=== PATIENT | female | born 1975 | race Caucasian/White ===

== ENCOUNTER 2016-10-01 13:24 | Inpatient (IN) | payer SELFPAY ==
[~2016-10-01] VITALS: Ht 157.5 cm; Wt 47.5 kg
[~2016-10-01 13:24] MED LIST: ALBU8.5H5 INH; FAMO-79 PO; GABA100C8 PO; HYDR-3138 PO; HYDR-3240 PO; INSU100C SQ-INSULIN; INSU100I18 SQ-INSULIN; INSU100I28 SQ-INSULIN; INSU100V5 SQ-INSULIN; INSU100V8 SQ; LORA-445 PO; LORA-446 PO; MAGN400T26 PO; METR500T PO; MORP30TA81 PO; NPH,100V SQ; NPH,100V4 SQ; PREG25CA PO; PREG50CA PO; TRAM50TA2 PO; TRESIVA
[2016-10-01] MEDS ORDERED: SODIUM CHLORIDE FLUSH 10ML SYR IVF ONE ×2 (14:00)
[2016-10-01] MEDS ORDERED: SODIUM CHLORIDE 0.9% 1,000ML IVBOLUS ONE ×2 (14:00)
[2016-10-01] MEDS ORDERED: ESCI5TAB PO (14:14)
[2016-10-01 14:20] LABS: PH, VENOUS 6.978 pH (7.320-7.420)
[2016-10-01] MEDS ORDERED: REGULAR INSULIN 62.5 UNITS in SODIUM CHLORIDE 0.9% 249.375 ML IV PRN ×3 (14:20→19:00)
[2016-10-01 14:27] LABS: ASPARTATE AMINO TRANSFERASE 18 U/L (15-37); BLOOD UREA NITROGEN 19 mg/dL (7-18)
[2016-10-01 14:48] LABS: DIFF TOTAL CELLS COUNTED 100 CELL DIFF
[2016-10-01 14:58] LABS: VERIFY COUNTS? YES
[2016-10-01] MEDS ORDERED: SODIUM CHLORIDE FLUSH 10ML SYR IVF PRN (15:00)
[2016-10-01] MEDS ORDERED: ONDANSETRON 2MG/ML, 2ML ONE (17:33)
[2016-10-01] MEDS ORDERED: LABETALOL 5MG/ML, 20ML IV PRN (18:30)
[2016-10-01 19:15] LABS: DAU SCREEN DISCLAIMER
[2016-10-01 19:22] LABS: PATH.CAST-FLAG NOT PRESENT; SPERM-FLAG NOT PRESENT; SRC-FLAG NOT PRESENT; XTAL-FLAG NOT PRESENT; YLC-FLAG NOT PRESENT
[2016-10-01] MEDS: SODIUM CHLORIDE 0.9% 1,000 ML IV SCH (19:24)
[2016-10-01] MEDS: ENOXAPARIN 40 MG/0.4 ML SQ SCH (19:37)
[2016-10-01 19:39] LABS: BLOOD UREA NITROGEN 15 mg/dL (7-18)
[2016-10-01] MEDS ORDERED: ONDANSETRON 2MG/ML, 2ML IVPush PRN (20:00)
[2016-10-01] MEDS: FAMOTIDINE 20 MG/2 ML IV SCH (21:02)
[2016-10-01] MEDS: LORazepam 2 MG/ML, 1ML IVPush PRN (21:14)
[2016-10-01] MEDS: D5%-0.45% NACL 1,000 ML IV SCH (22:26)
[2016-10-01] MEDS: ONDANSETRON 2MG/ML, 2ML IVPush PRN (22:27)
[2016-10-01 23:25] LABS: BLOOD UREA NITROGEN 12 mg/dL (7-18)
[2016-10-02] MEDS ORDERED: ALBUTEROL SULFATE 2.5 MG/3 ML ONE (01:18)
[2016-10-02] MEDS: ALBUTEROL SULFATE 2.5 MG/3 ML NPPB PRN ×2 (01:24→23:07)
[2016-10-02] MEDS: SODIUM CHLORIDE 0.9% 1,000 ML IV SCH ×3 (01:25→14:22)
[2016-10-02] MEDS ORDERED: LORazepam 2 MG/ML, 1ML IVPush ONE (01:30)
[2016-10-02] MEDS: ONDANSETRON 2MG/ML, 2ML IVPush PRN ×2 (03:02→07:16)
[2016-10-02 03:07] LABS: BLOOD UREA NITROGEN 10 mg/dL (7-18)
[2016-10-02] MEDS: LORazepam 2 MG/ML, 1ML IVPush PRN ×2 (04:04→18:48)
[2016-10-02] MEDS: D5%-0.45% NACL 1,000 ML IV SCH ×2 (05:21→12:46)
[2016-10-02 07:26] LABS: BLOOD UREA NITROGEN 8 mg/dL (7-18)
[2016-10-02] MEDS: FAMOTIDINE 20 MG/2 ML IV SCH ×2 (08:24→21:32)
[2016-10-02] MEDS ORDERED: PROCHLORPERAZINE 10MG TABLET PO PRN (09:30)
[2016-10-02 11:08] LABS: BLOOD UREA NITROGEN 7 mg/dL (7-18)
[2016-10-02] MEDS ORDERED: SODIUM PHOSPHATE 20 MMOL in SODIUM CHLORIDE 0.9% 500 ML IV ONE (11:30)
[2016-10-02] MEDS ORDERED: MAGNESIUM SULFATE PMX 2GM/50ML 50 ML IV ONE (11:30)
[2016-10-02] MEDS ORDERED: POTASSIUM CHLORIDE 20 MEQ TAB.ER.PRT PO ONE (11:30)
[2016-10-02 15:30] LABS: BLOOD UREA NITROGEN 6 mg/dL (7-18)
[2016-10-02] MEDS ORDERED: LIDOCAINE 1%, 10ML INFIL ONE (15:30)
[2016-10-02] MEDS: ENOXAPARIN 40 MG/0.4 ML SQ SCH (18:30)
[2016-10-02 19:13] LABS: BLOOD UREA NITROGEN 3 mg/dL (7-18)
[2016-10-02 22:58] LABS: BLOOD UREA NITROGEN 3 mg/dL (7-18)
[2016-10-03] MEDS: LORazepam 2 MG/ML, 1ML IVPush PRN ×4 (00:50→20:21)
[2016-10-03 05:10] LABS: BLOOD UREA NITROGEN 3 mg/dL (7-18)
[2016-10-03] MEDS ORDERED: POTASSIUM CHLORIDE 20 MEQ TAB.ER.PRT PO ONE (07:30)
[2016-10-03] MEDS: NICOTINE 7 MG/24 HR PATCH.TD24 TD SCH (08:00)
[2016-10-03] MEDS ORDERED: INSULIN ASPART 100 UNITS/ML, PEN ONE (08:06)
[2016-10-03] MEDS: INSULIN DETEMIR 100 UNITS/ML, PEN SQ-INSULIN SCH ×2 (08:07→20:20)
[2016-10-03] MEDS: INSULIN ASPART 100 UNITS/ML, PEN SQ-INSULIN SCH ×4 (08:10→20:21)
[2016-10-03] MEDS: SODIUM CHLORIDE 0.9% 1,000 ML IV SCH ×3 (08:10→23:16)
[2016-10-03 10:39] VITALS: BP 138/86
[2016-10-03] MEDS: ENOXAPARIN 40 MG/0.4 ML SQ SCH (17:49)
[2016-10-03] MEDS ORDERED: OXYcodone/APAP 10/325MG TABLET PO PRN (18:00)
[2016-10-03 19:00] VITALS: BP 147/90
[2016-10-04 03:43] VITALS: BP 118/73
[2016-10-04] MEDS: LORazepam 2 MG/ML, 1ML IVPush PRN (03:54)
[2016-10-04 05:24] LABS: BLOOD UREA NITROGEN 3 mg/dL (7-18)
[2016-10-04] MEDS: INSULIN ASPART 100 UNITS/ML, PEN SQ-INSULIN SCH (07:00)
[2016-10-04 07:14] VITALS: BP 133/83
[2016-10-04] MEDS: INSULIN DETEMIR 100 UNITS/ML, PEN SQ-INSULIN SCH (07:30)
[2016-10-04] MEDS: SODIUM CHLORIDE 0.9% 1,000 ML IV SCH (07:41)
[2016-10-04] MEDS: NICOTINE 7 MG/24 HR PATCH.TD24 TD SCH (07:42)
== END 2016-10-04 11:05 | disposition home or self-care (01) | DRG 638 ==
LOC: ED 14:50 → EDIP 14:57 → CCU 15:53 → 3NE 10-03 10:35
PROVIDERS: ADMIT Hospitalist; ATTEND Hospitalist
DX: E10.10 Type 1 diabetes mellitus with ketoacidosis without coma (principal); E87.1 Hypo-osmolality and hyponatremia; E44.0 Moderate protein-calorie malnutrition; Z68.1 Body mass index [BMI] 19.9 or less, adult; F17.200 Nicotine dependence, unspecified, uncomplicated; F43.10 Post-traumatic stress disorder, unspecified; I10 Essential (primary) hypertension; E87.5 Hyperkalemia; E86.0 Dehydration; E10.40 Type 1 diabetes mellitus with diabetic neuropathy, unspecified; F41.9 Anxiety disorder, unspecified; Z91.19 Patient's noncompliance with other medical treatment and regimen; Z79.4 Long term (current) use of insulin
CPT/HCPCS: 36415; 71010; 80048; 80053; 80307; 81001; 82010; 82803; 82962; 83036; 83735; 84100; 85025; 87081; 94640; 96360; J1650; J1815; J2405; J7613; Q0164; J2060; J3475; J7030; J7040; J7050; S0028

== ENCOUNTER 2017-01-06 09:52 | Emergency (ER) | payer MEDICAID, OTHER ==
[~2017-01-06] VITALS: Ht 157.5 cm; Wt 47.2 kg
[~2017-01-06 09:52] MED LIST changes: +ESCI5TAB PO; +GABA-826 PO; -GABA100C8 PO
[2017-01-06 09:53] VITALS: BP 181/158
== END 2017-01-06 10:53 | disposition home or self-care (01) ==
LOC: ED 10:47
DX: Z76.0 Encounter for issue of repeat prescription (principal); G89.29 Other chronic pain; M79.606 Pain in leg, unspecified; I10 Essential (primary) hypertension; E11.65 Type 2 diabetes mellitus with hyperglycemia; E11.40 Type 2 diabetes mellitus with diabetic neuropathy, unspecified; F43.10 Post-traumatic stress disorder, unspecified; E86.0 Dehydration; Z90.49 Acquired absence of other specified parts of digestive tract
CPT/HCPCS: 99283

== ENCOUNTER 2017-02-08 20:28 | Emergency (ER) | payer MEDICAID ==
[~2017-02-08] VITALS: Ht 154.9 cm; Wt 48.0 kg
[~2017-02-08 20:28] MED LIST changes: -HYDR-3138 PO; +HYDR-3237 PO; -NPH,100V4 SQ; +NPH,100V5 SQ
[2017-02-08] MEDS ORDERED: DIPHENHYDRAMINE 50 MG/ML, 1ML ONE (20:53)
[2017-02-08] MEDS ORDERED: KETOROLAC 30 MG/1 ML ONE (20:53)
[2017-02-08] MEDS ORDERED: KETOROLAC 30 MG/1 ML IVPush ONE (21:00)
[2017-02-08] MEDS ORDERED: SODIUM CHLORIDE FLUSH 10ML SYR IVF ONE (21:00)
[2017-02-08] MEDS ORDERED: METOCLOPRAMIDE 5 MG/ML, 2ML ONE (21:00)
[2017-02-08] MEDS ORDERED: METOCLOPRAMIDE 5 MG/ML, 2ML IVPush ONE (21:00)
[2017-02-08] MEDS ORDERED: SODIUM CHLORIDE 0.9% 1,000ML IVBOLUS ONE (21:00)
[2017-02-08] MEDS ORDERED: DIPHENHYDRAMINE 50 MG/ML, 1ML IVPush ONE (21:00)
[2017-02-08] MEDS ORDERED: PLEASE ENTER HEIGHT AND WEIGHT MC SCH (21:00)
[2017-02-08 21:02] LABS: HEMATOCRIT 41.4 % (34.6-47.8); HEMOGLOBIN 13.5 g/dL (11.7-16.4)
[2017-02-08 21:13] LABS: BLOOD UREA NITROGEN 24 mg/dL (7-18)
[2017-02-08 21:23] VITALS: BP 122/61
[2017-02-08 21:28] LABS: IS PT STATUS REG ER OR PRE ER? YES
[2017-02-08 22:13] LABS: PATH.CAST-FLAG NOT PRESENT; SPERM-FLAG NOT PRESENT; SRC-FLAG NOT PRESENT; XTAL-FLAG NOT PRESENT; YLC-FLAG NOT PRESENT
== END 2017-02-08 23:23 | disposition home or self-care (01) ==
LOC: ED 22:30
DX: G44.219 Episodic tension-type headache, not intractable (principal); E86.0 Dehydration; E11.65 Type 2 diabetes mellitus with hyperglycemia; F43.10 Post-traumatic stress disorder, unspecified; I10 Essential (primary) hypertension; F32.9 Major depressive disorder, single episode, unspecified; E13.10 Other specified diabetes mellitus with ketoacidosis without coma; Z90.49 Acquired absence of other specified parts of digestive tract
CPT/HCPCS: 36415; 71010; 80048; 81001; 82040; 84484; 85025; 93005; 96361; 96374; 96375; 99285; J1200; J1885; J2765; J7030

== ENCOUNTER 2017-02-09 00:39 | Emergency (ER) | payer MEDICAID ==
[~2017-02-09] VITALS: Ht 157.5 cm; Wt 50.0 kg
[2017-02-09 00:55] VITALS: BP 102/72
[2017-02-09] MEDS ORDERED: LORazepam 1MG TABLET ONE (01:20)
[2017-02-09] MEDS ORDERED: LORazepam 1MG TABLET PO ONE (01:30)
== END 2017-02-09 01:37 | disposition home or self-care (01) ==
LOC: ED 01:31
DX: F41.1 Generalized anxiety disorder (principal); I10 Essential (primary) hypertension; E11.65 Type 2 diabetes mellitus with hyperglycemia; F17.200 Nicotine dependence, unspecified, uncomplicated; Z90.49 Acquired absence of other specified parts of digestive tract
CPT/HCPCS: 82962; 93005; 99284

== ENCOUNTER 2017-03-27 08:09 | Inpatient (IN) | payer MEDICAID ==
[~2017-03-27] VITALS: Ht 154.9 cm; Wt 60.9 kg
[2017-03-27] MEDS ORDERED: ONDANSETRON 2MG/ML, 2ML ONE (08:46)
[2017-03-27] MEDS ORDERED: LORazepam 2 MG/ML, 1ML ONE (08:47)
[2017-03-27] MEDS ORDERED: ONDANSETRON 2MG/ML, 2ML IVPush ONE (09:00)
[2017-03-27] MEDS ORDERED: LORazepam 2 MG/ML, 1ML IVPush ONE (09:00)
[2017-03-27] MEDS ORDERED: SODIUM CHLORIDE 0.9% 1,000ML IVBOLUS ONE ×2 (09:00→10:00)
[2017-03-27 09:02] LABS: HCG UR LOT HCG7030192
[2017-03-27 09:10] LABS: PATH.CAST-FLAG NOT PRESENT; SPERM-FLAG NOT PRESENT; SRC-FLAG NOT PRESENT; XTAL-FLAG NOT PRESENT; YLC-FLAG NOT PRESENT
[2017-03-27 09:15] LABS: HCG UR OBC PASS
[2017-03-27 09:28] LABS: HEMATOCRIT 39.9 % (34.6-47.8); WHITE BLOOD COUNT 9.5 x10^3/uL (3.4-10)
[2017-03-27] MEDS ORDERED: METOCLOPRAMIDE 5 MG/ML, 2ML ONE (09:29)
[2017-03-27] MEDS ORDERED: METOCLOPRAMIDE 5 MG/ML, 2ML IVPush ONE (09:30)
[2017-03-27 09:37] LABS: ASPARTATE AMINO TRANSFERASE 12 U/L (15-37); BLOOD UREA NITROGEN 10 mg/dL (7-18)
[2017-03-27 11:59] VITALS: BP 126/77
[2017-03-27] MEDS ORDERED: SODIUM CHLORIDE 0.9% 1,000 ML IV SCH (13:18)
[2017-03-27] MEDS ORDERED: BISACODYL 10 MG SUPP PR PRN (13:30)
[2017-03-27] MEDS ORDERED: ONDANSETRON 2MG/ML, 2ML IVPush PRN (13:30)
[2017-03-27] MEDS ORDERED: OXYcodone IR 5MG TABLET PO PRN (13:30)
[2017-03-27] MEDS ORDERED: INSULIN DETEMIR 100 UNITS/ML, PEN SQ-INSULIN SCH (13:30)
[2017-03-27] MEDS ORDERED: ENALAPRILAT 1.25 MG/ML, 2ML IVPush PRN (13:30)
[2017-03-27] MEDS ORDERED: hydrALAzine 20 MG/ML, 1ML IVPush PRN (13:30)
[2017-03-27] MEDS ORDERED: POLYETHYLENE GLYCOL 17 GM PACKET PO PRN (13:30)
[2017-03-27] MEDS: morphine SULFATE 10 MG/ML, 1ML IVPush PRN (13:56)
[2017-03-27] MEDS: HEPARIN 5,000 UNITS/ML, 1ML SQ SCH ×2 (14:00→21:22)
[2017-03-27] MEDS ORDERED: ALBUTEROL SULFATE 2.5 MG/3 ML NEB PRN (14:00)
[2017-03-27 15:15] VITALS: BP 167/83
[2017-03-27] MEDS ORDERED: ALBUTEROL SULFATE 2.5 MG/3 ML ONE (15:42)
[2017-03-27] MEDS: PREGABALIN 25 MG CAPSULE PO SCH ×2 (16:00→20:37)
[2017-03-27] MEDS ORDERED: ALBUTEROL SULFATE 2.5 MG/3 ML NPPB PRN (16:00)
[2017-03-27] MEDS ORDERED: INSULIN ASPART 100 UNITS/ML, PEN SQ-INSULIN SCH (16:00)
[2017-03-27] MEDS: LORazepam 2 MG/ML, 1ML IVPush PRN (16:05)
[2017-03-27 17:51] LABS: BLOOD UREA NITROGEN 9 mg/dL (7-18)
[2017-03-27] MEDS ORDERED: INSULIN ASPART 100 UNITS/ML, PEN SQ-INSULIN ONE (18:00)
[2017-03-27] MEDS ORDERED: D5%-0.45% NACL 1,000 ML IV PRN (18:27)
[2017-03-27] MEDS ORDERED: REGULAR INSULIN 62.5 UNITS in SODIUM CHLORIDE 0.9% 249.375 ML IV PRN ×2 (18:27→23:00)
[2017-03-27] MEDS ORDERED: PROMETHAZINE 25 MG/ML, 1ML IM PRN (18:30)
[2017-03-27] MEDS: HYDROcodone/APAP 5/325 TABLET PO SCH (20:37)
[2017-03-27] MEDS ORDERED: DEXTROSE 4 GM TAB.CHEW PO PRN (21:00)
[2017-03-27] MEDS ORDERED: DEXTROSE 50%, 50ML SYRINGE IVPush PRN (21:00)
[2017-03-27] MEDS ORDERED: GLUCAGON 1 MG IM PRN (21:00)
[2017-03-27] MEDS ORDERED: DEXTROSE 50%, 50ML SYRINGE ONE (21:16)
[2017-03-27] MEDS: LORazepam 0.5MG TABLET PO SCH (21:22)
[2017-03-27] MEDS: SODIUM CHLORIDE FLUSH 10ML SYR IVF SCH (21:23)
[2017-03-27] MEDS ORDERED: DEXTROSE 50%, 50ML SYRINGE IVPush ONE (21:30)
[2017-03-27 21:45] LABS: BLOOD UREA NITROGEN 7 mg/dL (7-18)
[2017-03-27] MEDS ORDERED: ENOXAPARIN 40 MG/0.4 ML SQ SCH (23:00)
[2017-03-27] MEDS ORDERED: MAGNESIUM SULFATE PMX 2GM/50ML 50 ML IV ONE (23:00)
[2017-03-27] MEDS ORDERED: NICOTINE 21 MG/24 HR PATCH.TD24 TD ONE (23:00)
[2017-03-28] MEDS: POTASSIUM CHLORIDE 20 MEQ in D5%-0.45% NACL 1,000 ML IV PRN ×2 (00:21→08:19)
[2017-03-28] MEDS: ALBUTEROL SULFATE 2.5 MG/3 ML NPPB SCH ×2 (00:21→07:00)
[2017-03-28 01:29] LABS: BLOOD UREA NITROGEN 6 mg/dL (7-18)
[2017-03-28] MEDS: morphine SULFATE 10 MG/ML, 1ML IVPush PRN ×2 (02:34→09:02)
[2017-03-28] MEDS: LORazepam 2 MG/ML, 1ML IVPush PRN (03:21)
[2017-03-28 04:16] VITALS: BP 104/64
[2017-03-28 04:24] LABS: HEMOGLOBIN 10.7 g/dL (11.7-16.4); WHITE BLOOD COUNT 11.4 x10^3/uL (3.4-10)
[2017-03-28 04:34] LABS: BLOOD UREA NITROGEN 5 mg/dL (7-18)
[2017-03-28 04:35] LABS: ASPARTATE AMINO TRANSFERASE 12 U/L (15-37)
[2017-03-28] MEDS ORDERED: POTASSIUM PHOSPHATE 44 MEQ in SODIUM CHLORIDE 0.9% 500 ML IV ONE ×2 (05:00→08:30)
[2017-03-28] MEDS: PREGABALIN 25 MG CAPSULE PO SCH ×3 (08:22→20:54)
[2017-03-28] MEDS ORDERED: LORazepam 1MG TABLET ONE (08:25)
[2017-03-28] MEDS: HYDROcodone/APAP 5/325 TABLET PO SCH (09:00)
[2017-03-28] MEDS ORDERED: SENNA/DOCUSATE TABLET PO SCH (09:00)
[2017-03-28] MEDS: LORazepam 0.5MG TABLET PO SCH (09:01)
[2017-03-28] MEDS: GUAIFENESIN 200 MG TABLET PO SCH ×4 (09:01→20:54)
[2017-03-28] MEDS: SODIUM CHLORIDE FLUSH 10ML SYR IVF SCH ×2 (09:12→20:54)
[2017-03-28] MEDS ORDERED: OXYcodone 5 MG/5 ML ORAL.SOL UDC PO PRN ×2 (09:30→13:30)
[2017-03-28] MEDS ORDERED: DEXTROSE 5% 1,000 ML IV SCH (09:30)
[2017-03-28 10:19] LABS: BLOOD UREA NITROGEN 3 mg/dL (7-18)
[2017-03-28] MEDS: INSULIN ASPART 100 UNITS/ML, PEN SQ-INSULIN SCH ×4 (12:30→22:27)
[2017-03-28] MEDS: INSULIN DETEMIR 100 UNITS/ML, PEN SQ-INSULIN SCH (12:51)
[2017-03-28] MEDS ORDERED: SODIUM CHLORIDE 0.9% 1,000 ML IV SCH (13:18)
[2017-03-28] MEDS ORDERED: morphine SULFATE 10 MG/ML, 1ML IVPush PRN (13:30)
[2017-03-28] MEDS: OXYcodone 5 MG/5 ML ORAL.SOL UDC PO PRN ×2 (16:59→21:31)
[2017-03-28 18:27] VITALS: BP 147/77
[2017-03-28] MEDS ORDERED: REGULAR INSULIN 62.5 UNITS in SODIUM CHLORIDE 0.9% 249.375 ML IV PRN (18:27)
[2017-03-28 18:31] VITALS: BP 112/73
[2017-03-28] MEDS: LORazepam 0.5MG TABLET PO PRN (19:24)
[2017-03-28] MEDS: ENOXAPARIN 40 MG/0.4 ML SQ SCH (20:55)
[2017-03-28] MEDS ORDERED: SODIUM CHLORIDE 0.9% 1,000ML IVBOLUS ONE (22:30)
[2017-03-29 00:09] VITALS: BP 112/74
[2017-03-29] MEDS: OXYcodone 5 MG/5 ML ORAL.SOL UDC PO PRN ×2 (03:41→09:57)
[2017-03-29 05:49] LABS: HEMOGLOBIN 11.1 g/dL (11.7-16.4)
[2017-03-29 06:02] LABS: WHITE BLOOD COUNT 8.6 x10^3/uL (3.4-10)
[2017-03-29] MEDS: GUAIFENESIN 200 MG TABLET PO SCH ×3 (06:10→16:00)
[2017-03-29 06:12] LABS: ASPARTATE AMINO TRANSFERASE 22 U/L (15-37); BLOOD UREA NITROGEN 5 mg/dL (7-18)
[2017-03-29 08:00] VITALS: BP 122/76
[2017-03-29] MEDS: PREGABALIN 25 MG CAPSULE PO SCH ×3 (08:28→22:06)
[2017-03-29] MEDS: SENNA/DOCUSATE TABLET PO SCH (08:28)
[2017-03-29] MEDS: ACETAMINOPHEN 325 MG TABLET PO PRN ×2 (08:28→22:07)
[2017-03-29] MEDS: SODIUM CHLORIDE FLUSH 10ML SYR IVF SCH ×2 (08:29→22:06)
[2017-03-29] MEDS: INSULIN ASPART 100 UNITS/ML, PEN SQ-INSULIN SCH ×4 (08:50→22:08)
[2017-03-29] MEDS: INSULIN DETEMIR 100 UNITS/ML, PEN SQ-INSULIN SCH (08:51)
[2017-03-29] MEDS ORDERED: INSULIN DETEMIR 100 UNITS/ML, PEN SQ-INSULIN SCH ×2 (09:30→21:00)
[2017-03-29] MEDS: LORazepam 0.5MG TABLET PO PRN ×2 (10:24→22:07)
[2017-03-29] MEDS ORDERED: NICOTINE 21 MG/24 HR PATCH.TD24 TD SCH (12:00)
[2017-03-29 14:00] VITALS: BP 124/79
[2017-03-29 18:26] LABS: DAU SCREEN DISCLAIMER
[2017-03-29 18:30] VITALS: BP 134/86
[2017-03-29] MEDS: ENOXAPARIN 40 MG/0.4 ML SQ SCH (21:00)
[2017-03-29] MEDS: GUAIFENESIN 100 MG/5 ML, 10ML UDC PO SCH (22:06)
[2017-03-30 01:00] VITALS: BP 155/93
[2017-03-30 06:30] VITALS: BP 135/82
[2017-03-30] MEDS: INSULIN ASPART 100 UNITS/ML, PEN SQ-INSULIN SCH ×2 (07:00→11:00)
[2017-03-30] MEDS: SENNA/DOCUSATE TABLET PO SCH (08:12)
[2017-03-30] MEDS: SODIUM CHLORIDE FLUSH 10ML SYR IVF SCH (08:12)
[2017-03-30] MEDS: GUAIFENESIN 100 MG/5 ML, 10ML UDC PO SCH ×2 (08:12→11:07)
[2017-03-30] MEDS: PREGABALIN 25 MG CAPSULE PO SCH (08:12)
[2017-03-30] MEDS: LORazepam 0.5MG TABLET PO PRN (08:31)
[2017-03-30] MEDS ORDERED: INSULIN DETEMIR 100 UNITS/ML, PEN SQ-INSULIN SCH (09:00)
== END 2017-03-30 11:13 | disposition home or self-care (01) | DRG 638 ==
LOC: ED 09:09 → EDIP 10:43 → 3NW 11:25 → CCU 19:15 → 3NE 03-28 14:56
PROVIDERS: ADMIT Hospitalist; ATTEND Family Medicine
DX: E10.10 Type 1 diabetes mellitus with ketoacidosis without coma (principal); E87.1 Hypo-osmolality and hyponatremia; E10.649 Type 1 diabetes mellitus with hypoglycemia without coma; E10.40 Type 1 diabetes mellitus with diabetic neuropathy, unspecified; D75.89 Other specified diseases of blood and blood-forming organs; E83.42 Hypomagnesemia; E86.0 Dehydration; F17.210 Nicotine dependence, cigarettes, uncomplicated; F41.1 Generalized anxiety disorder; F32.9 Major depressive disorder, single episode, unspecified; F43.10 Post-traumatic stress disorder, unspecified; I10 Essential (primary) hypertension; J45.909 Unspecified asthma, uncomplicated; Z79.4 Long term (current) use of insulin; Z91.14 Patient's other noncompliance with medication regimen; Z90.89 Acquired absence of other organs; Z90.49 Acquired absence of other specified parts of digestive tract
CPT/HCPCS: 36415; 71010; 80048; 80053; 80061; 80307; 81001; 81025; 82010; 82800; 82947; 82962; 83036; 83735; 84100; 84439; 84443; 85025; 87081; 94640; 96361; 96374; 96375; J1644; J1815; J2405; J3480; J7070; G0479; J2060; J2270; J2765; J3475; J7030; J7040; J7050

== ENCOUNTER 2017-05-02 00:36 | Inpatient (IN) | payer MEDICAID ==
[~2017-05-02] VITALS: Ht 157.5 cm; Wt 48.1 kg
[2017-05-02] MEDS ORDERED: SODIUM CHLORIDE 0.9% 1,000ML IVBOLUS ONE ×2 (01:00→02:00)
[2017-05-02 01:51] LABS: PH, VENOUS 7.192 pH (7.320-7.420)
[2017-05-02] MEDS ORDERED: REGULAR INSULIN 62.5 UNITS in SODIUM CHLORIDE 0.9% 249.375 ML IV PRN ×3 (01:53→07:00)
[2017-05-02 01:54] LABS: HEMATOCRIT 43.7 % (34.6-47.8); HEMOGLOBIN 13.6 g/dL (11.7-16.4); WHITE BLOOD COUNT 11.6 x10^3/uL (3.4-10)
[2017-05-02] MEDS ORDERED: morphine SULFATE 10 MG/ML, 1ML IVPush ONE (02:00)
[2017-05-02] MEDS ORDERED: ONDANSETRON 2MG/ML, 2ML IVPush ONE (02:00)
[2017-05-02] MEDS ORDERED: morphine SULFATE 10 MG/ML, 1ML ONE (02:02)
[2017-05-02] MEDS ORDERED: ONDANSETRON 2MG/ML, 2ML ONE (02:02)
[2017-05-02 02:07] LABS: BLOOD UREA NITROGEN 25 mg/dL (7-18)
[2017-05-02 02:11] LABS: ASPARTATE AMINO TRANSFERASE 14 U/L (15-37)
[2017-05-02 03:11] LABS: DAU SCREEN DISCLAIMER
[2017-05-02] MEDS ORDERED: SODIUM CHLORIDE 0.9% 1,000 ML IV SCH (04:44)
[2017-05-02] MEDS ORDERED: ALBUTEROL HFA 90 MCG/SPRAY INH PRN (05:00)
[2017-05-02] MEDS ORDERED: ACETAMINOPHEN 325 MG TABLET PO PRN (05:00)
[2017-05-02 05:46] LABS: BLOOD UREA NITROGEN 21 mg/dL (7-18)
[2017-05-02] MEDS: ENOXAPARIN 40 MG/0.4 ML SQ SCH (05:51)
[2017-05-02] MEDS: NICOTINE 14MG/24 HR PATCH.TD24 TD SCH (05:52)
[2017-05-02] MEDS ORDERED: ALBUTEROL SULFATE 2.5 MG/3 ML NPPB PRN (06:00)
[2017-05-02] MEDS: ONDANSETRON 2MG/ML, 2ML IVPush PRN ×2 (06:13→08:56)
[2017-05-02] MEDS: D5%-0.45% NACL 1,000 ML IV PRN ×2 (07:53→15:43)
[2017-05-02] MEDS ORDERED: HYDROcodone/APAP 5/325 TABLET PO SCH (09:00)
[2017-05-02] MEDS ORDERED: LORazepam 0.5MG TABLET PO SCH (09:00)
[2017-05-02] MEDS ORDERED: ESCITALOPRAM OXALATE 5 MG HOMEMEDPO SCH (09:00)
[2017-05-02] MEDS ORDERED: HYDROcodone/APAP 5/325 TABLET PO PRN (09:00)
[2017-05-02 09:33] LABS: BLOOD UREA NITROGEN 18 mg/dL (7-18)
[2017-05-02] MEDS: PREGABALIN 25 MG CAPSULE PO SCH ×3 (09:52→21:13)
[2017-05-02] MEDS ORDERED: CITALOPRAM 10 MG TABLET PO SCH ×2 (10:03→10:04)
[2017-05-02 13:55] LABS: BLOOD UREA NITROGEN 14 mg/dL (7-18)
[2017-05-02] MEDS ORDERED: LORazepam 1MG TABLET ONE (14:24)
[2017-05-02] MEDS: LORazepam 0.5MG TABLET PO PRN (14:28)
[2017-05-02] MEDS ORDERED: LORazepam 0.5MG TABLET PO PRN (18:00)
[2017-05-02 18:15] LABS: BLOOD UREA NITROGEN 8 mg/dL (7-18)
[2017-05-02] MEDS: INSULIN DETEMIR 100 UNITS/ML, PEN SQ-INSULIN SCH (19:46)
[2017-05-02 23:40] LABS: BLOOD UREA NITROGEN 7 mg/dL (7-18)
[2017-05-03] MEDS: D5%-0.45% NACL 1,000 ML IV PRN
[2017-05-03] MEDS: INSULIN ASPART 100 UNITS/ML, PEN SQ-INSULIN SCH ×2 (02:00→06:00)
[2017-05-03] MEDS ORDERED: LORazepam 1MG TABLET ONE (03:32)
[2017-05-03] MEDS: LORazepam 0.5MG TABLET PO PRN (03:35)
[2017-05-03 04:11] VITALS: BP 105/59
[2017-05-03] MEDS: NICOTINE 14MG/24 HR PATCH.TD24 TD SCH (04:57)
[2017-05-03] MEDS: ENOXAPARIN 40 MG/0.4 ML SQ SCH (04:57)
[2017-05-03 05:24] LABS: BLOOD UREA NITROGEN 5 mg/dL (7-18)
[2017-05-03 05:25] LABS: HEMATOCRIT 32.4 % (34.6-47.8); HEMOGLOBIN 10.7 g/dL (11.7-16.4); WHITE BLOOD COUNT 10.8 x10^3/uL (3.4-10)
[2017-05-03] MEDS: INSULIN DETEMIR 100 UNITS/ML, PEN SQ-INSULIN SCH (06:29)
[2017-05-03 08:16] VITALS: BP 125/76
[2017-05-03] MEDS: PREGABALIN 25 MG CAPSULE PO SCH (09:39)
[2017-05-03] MEDS ORDERED: FLU VACC QS2017-18 (36MOS+) UP/PF 0.5 ML IM-VACC ONE (10:00)
== END 2017-05-03 10:45 | disposition home or self-care (01) | DRG 639 ==
LOC: ED 01:01 → EDIP 02:21 → CCU 05:13 → DCLOUNGE 05-03 10:20
PROVIDERS: ADMIT Hospitalist; ATTEND Hospitalist
DX: E10.10 Type 1 diabetes mellitus with ketoacidosis without coma (principal); E10.40 Type 1 diabetes mellitus with diabetic neuropathy, unspecified; D72.828 Other elevated white blood cell count; E86.0 Dehydration; F17.210 Nicotine dependence, cigarettes, uncomplicated; F41.9 Anxiety disorder, unspecified; F43.10 Post-traumatic stress disorder, unspecified; G89.29 Other chronic pain; I10 Essential (primary) hypertension; J45.909 Unspecified asthma, uncomplicated; Z79.4 Long term (current) use of insulin; Z90.49 Acquired absence of other specified parts of digestive tract
CPT/HCPCS: 36415; 71010; 80048; 80053; 80307; 81003; 82010; 82803; 82962; 83690; 83735; 83930; 84100; 85025; 87040; 87081; 90686; 93005; 96372; 96374; 96375; J1650; J1815; J2405; G0479; J2270; J7030; J7050

== ENCOUNTER 2017-05-20 00:12 | Inpatient (IN) | payer MEDICAID ==
[~2017-05-20] VITALS: Ht 154.9 cm; Wt 50.7 kg
[2017-05-20] MEDS ORDERED: SODIUM CHLORIDE FLUSH 10ML SYR IVF ONE (00:30)
[2017-05-20] MEDS ORDERED: SODIUM CHLORIDE 0.9% 1,000ML IVBOLUS ONE ×3 (00:30→01:30)
[2017-05-20 01:10] LABS: PH, VENOUS 7.089 pH (7.320-7.420)
[2017-05-20] MEDS ORDERED: REGULAR INSULIN 62.5 UNITS in SODIUM CHLORIDE 0.9% 249.375 ML IV PRN ×2 (01:14→03:25)
[2017-05-20 01:18] LABS: ASPARTATE AMINO TRANSFERASE 25 U/L (15-37); BLOOD UREA NITROGEN 16 mg/dL (7-18)
[2017-05-20 01:28] LABS: HEMATOCRIT 47.5 % (34.6-47.8); HEMOGLOBIN 13.6 g/dL (11.7-16.4); WHITE BLOOD COUNT 11.9 x10^3/uL (3.4-10)
[2017-05-20] MEDS ORDERED: ONDANSETRON 2MG/ML, 2ML ONE (02:50)
[2017-05-20] MEDS ORDERED: D5%-0.45% NACL 1,000 ML IV PRN (03:25)
[2017-05-20] MEDS ORDERED: SODIUM CHLORIDE 0.9% 1,000 ML IV ONE (03:25)
[2017-05-20] MEDS ORDERED: LORazepam 2 MG/ML, 1ML IVPush PRN (03:30)
[2017-05-20] MEDS ORDERED: SODIUM BICARB 8.4%, 50ML SYRINGE IVPB PRN (03:30)
[2017-05-20] MEDS ORDERED: DOCUSATE 100 MG CAPSULE PO PRN (03:30)
[2017-05-20] MEDS ORDERED: SODIUM BICARB 8.4%, 50ML SYRINGE ONE (04:00)
[2017-05-20] MEDS: ONDANSETRON 2MG/ML, 2ML IVPush PRN ×2 (04:02→15:53)
[2017-05-20] MEDS ORDERED: SODIUM BICARB 8.4%, 50ML SYRINGE IVPush ONE (04:30)
[2017-05-20 09:40] LABS: BLOOD UREA NITROGEN 7 mg/dL (7-18)
[2017-05-20] MEDS ORDERED: INSULIN DETEMIR 100 UNITS/ML, PEN SQ-INSULIN SCH (12:30)
[2017-05-20 12:57] VITALS: BP 114/72
[2017-05-20] MEDS: SODIUM CHLORIDE FLUSH 10ML SYR IVF SCH ×2 (13:09→22:13)
[2017-05-20] MEDS: NS + 20MEQ KCL 1,000 ML IV SCH ×2 (13:09→22:12)
[2017-05-20] MEDS: INSULIN ASPART 100 UNITS/ML, PEN SQ-INSULIN SCH ×2 (17:09→22:13)
[2017-05-20] MEDS: PROMETHAZINE 25 MG/ML, 1ML IM PRN ×3 (17:18→21:56)
[2017-05-20] MEDS ORDERED: INSULIN ASPART 100 UNITS/ML, PEN SQ-INSULIN SCH (17:30)
[2017-05-20 19:25] VITALS: BP 118/78
[2017-05-21] MEDS ORDERED: INSULIN DETEMIR 100 UNITS/ML, PEN SQ-INSULIN SCH (00:30)
[2017-05-21] MEDS: ONDANSETRON 2MG/ML, 2ML IVPush PRN ×3 (02:36→16:34)
[2017-05-21 03:21] VITALS: BP 110/72
[2017-05-21] MEDS ORDERED: SODIUM CHLORIDE 0.9% 1,000 ML IV SCH (03:25)
[2017-05-21] MEDS: PROMETHAZINE 25 MG/ML, 1ML IM PRN ×3 (05:02→12:28)
[2017-05-21 05:33] LABS: HEMATOCRIT 31.3 % (34.6-47.8); HEMOGLOBIN 9.9 g/dL (11.7-16.4); WHITE BLOOD COUNT 14.4 x10^3/uL (3.4-10)
[2017-05-21] MEDS: NS + 20MEQ KCL 1,000 ML IV SCH (05:37)
[2017-05-21 05:44] LABS: BLOOD UREA NITROGEN 5 mg/dL (7-18)
[2017-05-21] MEDS: INSULIN ASPART 100 UNITS/ML, PEN SQ-INSULIN SCH ×4 (07:48→21:54)
[2017-05-21] MEDS: SODIUM CHLORIDE FLUSH 10ML SYR IVF SCH ×2 (07:48→21:45)
[2017-05-21 08:00] VITALS: BP 145/74
[2017-05-21] MEDS: LORazepam 0.5MG TABLET PO SCH ×2 (12:00→22:00)
[2017-05-21] MEDS ORDERED: ALBUTEROL SULFATE 2.5 MG/3 ML HHN PRN (12:00)
[2017-05-21] MEDS ORDERED: LORazepam 1MG TABLET ONE (12:21)
[2017-05-21] MEDS: INSULIN DETEMIR 100 UNITS/ML, PEN SQ-INSULIN SCH (12:29)
[2017-05-21] MEDS: HEPARIN 5,000 UNITS/ML, 1ML SQ SCH ×2 (12:30→21:56)
[2017-05-21] MEDS: PREGABALIN 25 MG CAPSULE PO SCH ×3 (13:07→22:00)
[2017-05-21] MEDS: SODIUM CHLORIDE 0.9% 1,000 ML IV SCH ×2 (13:30→21:45)
[2017-05-21] MEDS: METOCLOPRAMIDE 5 MG/ML, 2ML IVPush PRN ×2 (13:36→21:45)
[2017-05-21 14:24] VITALS: BP 155/78
[2017-05-21 19:28] VITALS: BP 147/72
[2017-05-22 03:37] VITALS: BP 139/67
[2017-05-22] MEDS: HEPARIN 5,000 UNITS/ML, 1ML SQ SCH ×3 (04:37→21:00)
[2017-05-22 04:57] LABS: HEMATOCRIT 33.6 % (34.6-47.8); HEMOGLOBIN 10.7 g/dL (11.7-16.4); WHITE BLOOD COUNT 10.7 x10^3/uL (3.4-10)
[2017-05-22 05:09] LABS: BLOOD UREA NITROGEN 3 mg/dL (7-18)
[2017-05-22] MEDS: SODIUM CHLORIDE 0.9% 1,000 ML IV SCH ×2 (05:46→12:30)
[2017-05-22 08:08] VITALS: BP 132/79
[2017-05-22] MEDS: INSULIN ASPART 100 UNITS/ML, PEN SQ-INSULIN SCH ×4 (08:33→21:00)
[2017-05-22] MEDS: PREGABALIN 25 MG CAPSULE PO SCH ×3 (08:34→21:00)
[2017-05-22] MEDS: SODIUM CHLORIDE FLUSH 10ML SYR IVF SCH ×2 (08:34→21:01)
[2017-05-22] MEDS: LORazepam 0.5MG TABLET PO SCH ×2 (08:34→21:01)
[2017-05-22] MEDS ORDERED: MAGNESIUM SULFATE PMX 2GM/50ML 50 ML IV ONE (10:30)
[2017-05-22] MEDS: INSULIN DETEMIR 100 UNITS/ML, PEN SQ-INSULIN SCH ×3 (13:08→21:11)
[2017-05-22 15:34] VITALS: BP 120/75
[2017-05-22 19:24] VITALS: BP 126/78
[2017-05-23] MEDS ORDERED: DEXTROSE 50%, 50ML SYRINGE ONE (00:18)
[2017-05-23] MEDS: DEXTROSE 50%, 50ML SYRINGE IVPush PRN ×2 (00:26→05:35)
[2017-05-23] MEDS ORDERED: DEXTROSE 4 GM TAB.CHEW PO PRN (00:30)
[2017-05-23] MEDS ORDERED: GLUCAGON 1 MG IM PRN (00:30)
[2017-05-23 03:23] VITALS: BP 118/90
[2017-05-23] MEDS: HEPARIN 5,000 UNITS/ML, 1ML SQ SCH ×3 (05:00→20:18)
[2017-05-23 05:12] LABS: BLOOD UREA NITROGEN 8 mg/dL (7-18)
[2017-05-23 07:16] VITALS: BP 124/73
[2017-05-23] MEDS: SODIUM CHLORIDE FLUSH 10ML SYR IVF SCH ×2 (07:43→20:08)
[2017-05-23] MEDS: INSULIN ASPART 100 UNITS/ML, PEN SQ-INSULIN SCH ×4 (07:43→20:18)
[2017-05-23] MEDS: LORazepam 0.5MG TABLET PO SCH ×2 (07:44→20:16)
[2017-05-23] MEDS: PREGABALIN 25 MG CAPSULE PO SCH ×3 (07:44→20:16)
[2017-05-23] MEDS: NICOTINE 14MG/24 HR PATCH.TD24 TD SCH (12:00)
[2017-05-23 13:40] VITALS: BP 131/86
[2017-05-23] MEDS: ACETAMINOPHEN 325 MG TABLET PO PRN ×2 (15:10→19:58)
[2017-05-23] MEDS ORDERED: POTASSIUM CHLORIDE 20 MEQ TAB.ER.PRT PO ONE (19:00)
[2017-05-23 19:17] VITALS: BP 145/92
[2017-05-24 00:57] VITALS: BP 136/90
[2017-05-24] MEDS: ACETAMINOPHEN 325 MG TABLET PO PRN (01:37)
[2017-05-24] MEDS: HEPARIN 5,000 UNITS/ML, 1ML SQ SCH ×2 (04:18→11:34)
[2017-05-24] MEDS: PREGABALIN 25 MG CAPSULE PO SCH ×2 (07:47→16:49)
[2017-05-24] MEDS: SODIUM CHLORIDE FLUSH 10ML SYR IVF SCH (07:48)
[2017-05-24] MEDS: LORazepam 0.5MG TABLET PO SCH (07:48)
[2017-05-24 08:16] VITALS: BP 139/98
[2017-05-24] MEDS ORDERED: INSULIN DETEMIR 100 UNITS/ML, PEN SQ-INSULIN SCH (09:00)
[2017-05-24] MEDS: INSULIN ASPART 100 UNITS/ML, PEN SQ-INSULIN SCH ×3 (09:01→16:50)
[2017-05-24] MEDS ORDERED: INSU100I28 SQ-INSULIN (10:46)
[2017-05-24] MEDS ORDERED: METO5TAB57 PO (10:46)
[2017-05-24] MEDS ORDERED: INSU100I11 SQ (10:53)
[2017-05-24] MEDS: NICOTINE 14MG/24 HR PATCH.TD24 TD SCH (11:33)
[2017-05-24 13:38] VITALS: BP 121/83
== END 2017-05-24 17:45 | disposition home or self-care (01) | DRG 638 ==
LOC: ED 00:34 → EDIP 01:16 → ICU 04:48 → 3NW 12:50
PROVIDERS: ADMIT Surgery; ATTEND Surgery
PROC: 06HY33Z Insertion of Infusion Device into Lower Vein, Percutaneous Approach (ICD-10-PCS; principal; 2017-05-20)
DX: E10.10 Type 1 diabetes mellitus with ketoacidosis without coma (principal); E87.1 Hypo-osmolality and hyponatremia; N17.9 Acute kidney failure, unspecified; E10.40 Type 1 diabetes mellitus with diabetic neuropathy, unspecified; E87.5 Hyperkalemia; E86.0 Dehydration; F43.10 Post-traumatic stress disorder, unspecified; I10 Essential (primary) hypertension; J45.909 Unspecified asthma, uncomplicated; Z79.899 Other long term (current) drug therapy; Z87.891 Personal history of nicotine dependence; Z91.14 Patient's other noncompliance with medication regimen; Z91.19 Patient's noncompliance with other medical treatment and regimen
CPT/HCPCS: 36415; 80047; 80048; 80053; 81003; 82010; 82803; 82947; 82962; 83036; 83735; 85025; 87081; 93005; 96365; 96366; J1815; J2405; J2550; J3480; J2060; J2765; J3475; J7030; J7050

== ENCOUNTER 2017-08-26 16:32 | Emergency (ER) | payer MEDICAID ==
[~2017-08-26] VITALS: Ht 157.5 cm; Wt 55.0 kg
[~2017-08-26 16:32] MED LIST changes: +INSU100I11 SQ; +METO5TAB57 PO
[2017-08-26] MEDS ORDERED: GABA300C10 PO (16:49)
[2017-08-26] MEDS ORDERED: SODIUM CHLORIDE 0.9% 1,000ML IVBOLUS ONE (17:00)
[2017-08-26 17:10] LABS: BASOPHILS # (AUTO) 0.06 x10^3/uL (0-0.1); BASOPHILS % (AUTO) 0 % (0-1); EOSINOPHILS # (AUTO) 0.34 x10^3/uL (0-0.4); EOSINOPHILS % (AUTO) 3 % (1-7); LYMPHOCYTES # (AUTO) 3.66 x10^3/uL (1-3.4); LYMPHOCYTES % (AUTO) 27 % (22-44); MD NO; MEAN CORPUSCULAR HEMOGLOBIN 23.9 pg (27.0-34.8); MEAN CORPUSCULAR VOLUME 74.7 fL (80-100); MEAN PLATELET VOLUME 7.7 fL (7.4-10.4); MONOCYTES # (AUTO) 0.66 x10^3/uL (0.2-0.8); MONOCYTES % (AUTO) 5 % (2-9); NEUTROPHILS % (AUTO) 66 % (42-75); PLATELET COUNT 805 x10^3/uL (130-400); RED BLOOD COUNT 5.49 x10^6/uL (3.82-5.3); RED CELL DISTRIBUTION WIDTH 21.7 % (9.6-15.2)
[2017-08-26 17:12] LABS: PH, VENOUS 7.422 pH (7.320-7.420)
[2017-08-26 17:20] LABS: ACETONE, SERUM Negative (Negative)
[2017-08-26 17:24] LABS: ALBUMIN 3.4 g/dL (3.4-5.0); ANION GAP 14 mmol/L (5-15); CALCIUM 9.8 mg/dL (8.5-10.1); CHLORIDE 102 mmol/L (98-107); CREATININE 1.04 mg/dL (0.55-1.02)
[2017-08-26] MEDS ORDERED: KETOROLAC 30 MG/1 ML ONE (17:26)
[2017-08-26] MEDS ORDERED: KETOROLAC 30 MG/1 ML IVPush ONE (17:30)
[2017-08-26 17:33] VITALS: BP 121/85
== END 2017-08-26 19:17 | disposition home or self-care (01) ==
LOC: ED 19:11
DX: E11.65 Type 2 diabetes mellitus with hyperglycemia (principal); E86.0 Dehydration; E11.10 Type 2 diabetes mellitus with ketoacidosis without coma; I10 Essential (primary) hypertension; F43.10 Post-traumatic stress disorder, unspecified; Z90.49 Acquired absence of other specified parts of digestive tract
CPT/HCPCS: 36415; 71045; 80048; 82010; 82040; 82803; 85025; 96361; 96374; 99285; J1885; J7030

== ENCOUNTER 2017-09-23 20:11 | Inpatient (IN) | payer MEDICAID ==
[~2017-09-23] VITALS: Ht 154.9 cm; Wt 50.4 kg
[~2017-09-23 20:11] MED LIST changes: +GABA300C10 PO
[2017-09-23] MEDS ORDERED: PROMETHAZINE 25 MG/ML, 1ML ONE (20:38)
[2017-09-23] MEDS ORDERED: MORPHINE SULFATE 4 MG/ML, 1ML ONE ×3 (20:38→22:45)
[2017-09-23] MEDS ORDERED: SODIUM CHLORIDE 0.9% 1,000ML IVBOLUS ONE (21:00)
[2017-09-23] MEDS ORDERED: PROMETHAZINE 25 MG/ML, 1ML IM ONE (21:00)
[2017-09-23] MEDS ORDERED: REGULAR INSULIN 62.5 UNITS in SODIUM CHLORIDE 0.9% 249.375 ML IV PRN ×2 (21:19→22:58)
[2017-09-23 21:20] LABS: ALANINE AMINOTRANSFERASE 33 U/L (12-78); ALBUMIN 2.8 g/dL (3.4-5.0); ANION GAP 25 mmol/L (5-15); CALCIUM 7.4 mg/dL (8.5-10.1); CHLORIDE 98 mmol/L (98-107); CREATININE 0.99 mg/dL (0.55-1.02)
[2017-09-23 21:23] LABS: ALKALINE PHOSPHATASE 102 U/L (45-117); BILIRUBIN,TOTAL 0.5 mg/dL (0.2-1.0); TOTAL PROTEIN 6.4 g/dL (6.4-8.2)
[2017-09-23 21:32] LABS: MEAN CORPUSCULAR HEMOGLOBIN 23.9 pg (27.0-34.8); MEAN CORPUSCULAR HGB CONC 30.2 g/dL (32.4-35.8); MEAN CORPUSCULAR VOLUME 79.1 fL (80-100); MEAN PLATELET VOLUME 8.2 fL (7.4-10.4); PLATELET COUNT 634 x10^3/uL (130-400); RED BLOOD COUNT 4.52 x10^6/uL (3.82-5.3); RED CELL DISTRIBUTION WIDTH 20.7 % (9.6-15.2)
[2017-09-23 21:33] LABS: MD YES
[2017-09-23 21:34] LABS: BASOS#(MANUAL) 0.11 x10^3/uL (0-0.1); BASOS% (MANUAL) 1 % (0-1); EOS#(MANUAL) 0.34 x10^3/uL (0.0-0.4); EOS% (MANUAL) 3 % (1-7); LYMPHS% (MANUAL) 15 % (22-44); MONOS#(MANUAL) 0.34 x10^3/uL (0.3-2.7); MONOS% (MANUAL) 3 % (2-9); SEG#(MANUAL) 8.81 x10^3/uL (1.8-6.8); SEGS% (MANUAL) 78 % (42-75)
[2017-09-23 21:35] LABS: ANISOCYTOSIS 1+
[2017-09-23 21:36] LABS: ECHINOCYTES 1+; POLYCHROMASIA 1+
[2017-09-23 21:37] LABS: ACETONE, SERUM Large (80mg/dL) mg/dL (Negative)
[2017-09-23 21:39] LABS: <PLATELET ESTIMATE> INCREASED; <PLT MORPHOLOGY> NORMAL PLT MORPH
[2017-09-23] MEDS: MORPHINE SULFATE 4 MG/ML, 1ML IVPush PRN ×2 (21:45→22:48)
[2017-09-23] MEDS ORDERED: POTASSIUM CHLORIDE 40 MEQ in SODIUM CHLORIDE 0.9% 500 ML IV ONE (22:00)
[2017-09-23] MEDS ORDERED: SODIUM CHLORIDE 0.9% 1,000 ML IV SCH (22:58)
[2017-09-23] MEDS ORDERED: INSULIN REGULAR 100 UNITS/ML, 3ML VIAL IVPush ONE (23:00)
[2017-09-23] MEDS ORDERED: ONDANSETRON 2MG/ML, 2ML IVPush PRN (23:00)
[2017-09-23] MEDS: ENOXAPARIN 40 MG/0.4 ML SQ SCH (23:30)
[2017-09-24] MEDS ORDERED: LORazepam 0.5MG TABLET PO PRN
[2017-09-24] MEDS ORDERED: NICOTINE 14MG/24 HR PATCH.TD24 TD ONE (00:30)
[2017-09-24] MEDS: D5%-0.45% NACL 1,000 ML IV PRN ×2 (01:09→05:33)
[2017-09-24 01:31] LABS: % IRON SATURATION 8 % (20-55); ANION GAP 14 mmol/L (5-15); CALCIUM 7.3 mg/dL (8.5-10.1); CHLORIDE 113 mmol/L (98-107); CREATININE 0.78 mg/dL (0.55-1.02); IRON LEVEL 29 mcg/dL (50-170); TOTAL IRON BINDING CAPACITY 369 mcg/dL (250-450)
[2017-09-24 04:22] VITALS: BP 125/69
[2017-09-24 05:02] LABS: ANION GAP 6 mmol/L (5-15); CALCIUM 7.1 mg/dL (8.5-10.1); CHLORIDE 114 mmol/L (98-107); CREATININE 0.72 mg/dL (0.55-1.02)
[2017-09-24] MEDS: INSULIN GLARGINE 100 UNITS/ML, PEN SQ-INSULIN SCH ×2 (08:53→20:03)
[2017-09-24] MEDS: INSULIN LISPRO 100 UNITS/ML, PEN SQ-INSULIN SCH ×3 (11:26→20:03)
[2017-09-24] MEDS: KETOROLAC 30 MG/1 ML IVPush PRN ×2 (12:35→18:29)
[2017-09-24 14:03] VITALS: BP 120/75
[2017-09-24] MEDS: GABAPENTIN 300 MG CAPSULE PO SCH ×2 (16:00→20:02)
[2017-09-24 16:27] LABS: ANION GAP 9 mmol/L (5-15); CALCIUM 7.6 mg/dL (8.5-10.1); CHLORIDE 107 mmol/L (98-107); CREATININE 0.86 mg/dL (0.55-1.02)
[2017-09-24 19:40] VITALS: BP 141/96
[2017-09-24] MEDS ORDERED: NICOTINE 14MG/24 HR PATCH.TD24 TD SCH (21:30)
[2017-09-24] MEDS: ENOXAPARIN 40 MG/0.4 ML SQ SCH (22:41)
[2017-09-24] MEDS: ACETAMINOPHEN 325 MG TABLET PO PRN ×2 (22:45)
[2017-09-24] MEDS ORDERED: D5%-0.45% NACL 1,000 ML IV PRN (22:58)
[2017-09-25 02:31] VITALS: BP 117/75
[2017-09-25] MEDS: KETOROLAC 30 MG/1 ML IVPush PRN (05:00)
[2017-09-25 05:13] LABS: BASOPHILS # (AUTO) 0.06 x10^3/uL (0-0.1); BASOPHILS % (AUTO) 1 % (0-1); EOSINOPHILS # (AUTO) 0.55 x10^3/uL (0-0.4); EOSINOPHILS % (AUTO) 6 % (1-7); LYMPHOCYTES # (AUTO) 3.73 x10^3/uL (1-3.4); LYMPHOCYTES % (AUTO) 40 % (22-44); MD NO; MEAN CORPUSCULAR HEMOGLOBIN 24.6 pg (27.0-34.8); MEAN CORPUSCULAR HGB CONC 31.8 g/dL (32.4-35.8); MEAN CORPUSCULAR VOLUME 77.3 fL (80-100); MEAN PLATELET VOLUME 7.6 fL (7.4-10.4); MONOCYTES # (AUTO) 0.43 x10^3/uL (0.2-0.8); MONOCYTES % (AUTO) 5 % (2-9); NEUTROPHILS # (AUTO) 4.51 x10^3/uL (1.8-6.8); NEUTROPHILS % (AUTO) 49 % (42-75); PLATELET COUNT 572 x10^3/uL (130-400); RED BLOOD COUNT 4.27 x10^6/uL (3.82-5.3); RED CELL DISTRIBUTION WIDTH 20.9 % (9.6-15.2)
[2017-09-25 05:17] LABS: ALBUMIN 2.4 g/dL (3.4-5.0); CALCIUM 9.4 mg/dL (8.5-10.1); CHLORIDE 111 mmol/L (98-107)
[2017-09-25 05:23] LABS: ALANINE AMINOTRANSFERASE 30 U/L (12-78); ALKALINE PHOSPHATASE 83 U/L (45-117); ANION GAP 5 mmol/L (5-15); BILIRUBIN,TOTAL 0.4 mg/dL (0.2-1.0); CREATININE 0.68 mg/dL (0.55-1.02); TOTAL PROTEIN 5.5 g/dL (6.4-8.2)
[2017-09-25 07:15] VITALS: BP 119/73
[2017-09-25] MEDS: GABAPENTIN 300 MG CAPSULE PO SCH (08:42)
[2017-09-25] MEDS: INSULIN LISPRO 100 UNITS/ML, PEN SQ-INSULIN SCH (08:43)
[2017-09-25] MEDS: INSULIN GLARGINE 100 UNITS/ML, PEN SQ-INSULIN SCH (08:43)
== END 2017-09-25 10:46 | disposition home or self-care (01) | DRG 637 ==
LOC: ED 21:11 → SUATTDRO 22:50 → EDIP 22:58 → CCU 23:34 → 4EST 09-24 13:36
PROVIDERS: ADMIT Hospitalist; ATTEND Hospitalist
DX: E10.10 Type 1 diabetes mellitus with ketoacidosis without coma (principal); E43 Unspecified severe protein-calorie malnutrition; E10.40 Type 1 diabetes mellitus with diabetic neuropathy, unspecified; D72.829 Elevated white blood cell count, unspecified; D50.9 Iron deficiency anemia, unspecified; F17.200 Nicotine dependence, unspecified, uncomplicated; Z71.6 Tobacco abuse counseling; I10 Essential (primary) hypertension; F43.10 Post-traumatic stress disorder, unspecified; J45.909 Unspecified asthma, uncomplicated; Z59.0 Homelessness; Z79.4 Long term (current) use of insulin; Z83.3 Family history of diabetes mellitus; Z90.49 Acquired absence of other specified parts of digestive tract; F41.9 Anxiety disorder, unspecified; Z68.21 Body mass index [BMI] 21.0-21.9, adult
CPT/HCPCS: 36415; 80048; 80053; 82010; 82803; 82962; 83540; 83550; 83690; 83735; 84100; 85025; 87081; 96361; 96365; 96366; 96368; 96372; 96375; 96376; J1650; J1885; J2550; J3480; J1815; J7030; J7040

== ENCOUNTER 2017-10-14 11:56 | Inpatient (IN) | payer MEDICAID ==
[~2017-10-14] VITALS: Ht 152.4 cm; Wt 53.2 kg
[~2017-10-14 11:56] MED LIST changes: +ETOMIDATE 40 MG/20 ML ONE; +MIDAZOLAM 1 MG/ML, 5ML ONE; +PROPOFOL 10 MG/ML, 100ML IV ONE; +SUCCINYLCHOLINE 20 MG/ML, 10ML ONE
[2017-10-14] MEDS ORDERED: SODIUM CHLORIDE 0.9% 1,000 ML IV ONE (12:25)
[2017-10-14] MEDS ORDERED: METOCLOPRAMIDE 5 MG/ML, 2ML IVPush ONE (12:30)
[2017-10-14] MEDS ORDERED: SODIUM CHLORIDE FLUSH 10ML SYR IVF ONE (12:30)
[2017-10-14] MEDS ORDERED: PANTOPRAZOLE 40 MG IV IVPush ONE (12:30)
[2017-10-14] MEDS ORDERED: SODIUM CHLORIDE 0.9% 1,000ML IVBOLUS ONE ×2 (12:30→14:30)
[2017-10-14] MEDS ORDERED: PANTOPRAZOLE 40 MG IV ONE (12:54)
[2017-10-14 12:58] LABS: ACETONE, SERUM Large (80mg/dL) mg/dL (Negative); INTERNATIONAL NORMALIZED RATIO 0.96 (0.93-1.1)
[2017-10-14] MEDS ORDERED: SUCCINYLCHOLINE 20 MG/ML, 10ML IVPush ONE (13:30)
[2017-10-14] MEDS ORDERED: ETOMIDATE 20 MG/10 ML IV ONE (13:30)
[2017-10-14 13:48] LABS: ANION GAP 35 mmol/L (5-15); CALCIUM 8.5 mg/dL (8.5-10.1); CHLORIDE 60 mmol/L (98-107)
[2017-10-14] MEDS: PROPOFOL 100 ML IV PRN ×3 (13:50→22:34)
[2017-10-14 13:58] LABS: MEAN CORPUSCULAR HEMOGLOBIN 25.9 pg (27.0-34.8); MEAN CORPUSCULAR VOLUME 107.6 fL (80-100); MEAN PLATELET VOLUME 9.9 fL (7.4-10.4); PLATELET COUNT 762 x10^3/uL (130-400); RED BLOOD COUNT 3.61 x10^6/uL (3.82-5.3)
[2017-10-14 14:01] LABS: ALANINE AMINOTRANSFERASE 72 U/L (12-78); BILIRUBIN,TOTAL 7.1 mg/dL (0.2-1.0); MEAN CORPUSCULAR HGB CONC 24.1 g/dL (32.4-35.8)
[2017-10-14 14:02] LABS: ALKALINE PHOSPHATASE 193 U/L (45-117); CREATININE 4.54 mg/dL (0.55-1.02); TOTAL PROTEIN 7.3 g/dL (6.4-8.2)
[2017-10-14 14:06] LABS: HEMOGRAM NOTE RECHECKED
[2017-10-14] MEDS ORDERED: MIDAZOLAM 1 MG/ML, 2ML IVPush STA (14:06)
[2017-10-14] MEDS ORDERED: REGULAR INSULIN 62.5 UNITS in SODIUM CHLORIDE 0.9% 249.375 ML IV PRN ×2 (14:12→15:00)
[2017-10-14] MEDS ORDERED: DEXTROSE 50%, 50ML SYRINGE ONE (14:21)
[2017-10-14] MEDS ORDERED: SODIUM BICARB 8.4%, 50ML SYRINGE ONE (14:21)
[2017-10-14] MEDS ORDERED: CALCIUM CHLORIDE 10%, 10ML SYR ONE (14:21)
[2017-10-14] MEDS ORDERED: CEFTRIAXONE PMX 1GM/50ML 50 ML ONE (14:22)
[2017-10-14] MEDS ORDERED: INSULIN REGULAR 100 UNITS/ML, 3ML VIAL ONE (14:23)
[2017-10-14] MEDS ORDERED: SODIUM BICARB 8.4%, 50ML SYRINGE IVPush ONE (14:30)
[2017-10-14] MEDS ORDERED: INSULIN REGULAR 100 UNITS/ML, 3ML VIAL IVPush ONE (14:30)
[2017-10-14] MEDS ORDERED: CALCIUM CHLORIDE 10%, 10ML SYR IVPush ONE (14:30)
[2017-10-14] MEDS ORDERED: CEFTRIAXONE PMX 1GM/50ML 50 ML IV ONE (14:30)
[2017-10-14] MEDS: PANTOPRAZOLE 80 MG in SODIUM CHLORIDE 0.9% 100 ML IV SCH ×4 (14:30→23:30)
[2017-10-14] MEDS ORDERED: DEXTROSE 50%, 50ML SYRINGE IVPush ONE (14:30)
[2017-10-14 14:34] LABS: MICROSCOPIC INDICATED
[2017-10-14] MEDS ORDERED: PROMETHAZINE 25 MG/ML, 1ML ONE (14:39)
[2017-10-14 14:48] LABS: MD YES
[2017-10-14 14:51] LABS: BAND#(MANUAL) 1.15 x10^3/uL; BANDS%(MANUAL) 6 % (0-7); BASOS#(MANUAL) 0.19 x10^3/uL (0-0.1); BASOS% (MANUAL) 1 % (0-1); EOS#(MANUAL) 0.19 x10^3/uL (0.0-0.4); EOS% (MANUAL) 1 % (1-7); LYMPH#(MANUAL) 1.53 x10^3/uL (1-3.4); LYMPHS% (MANUAL) 8 % (22-44); MONOS#(MANUAL) 1.53 x10^3/uL (0.3-2.7); MONOS% (MANUAL) 8 % (2-9); SEG#(MANUAL) 14.52 x10^3/uL (1.8-6.8); SEGS% (MANUAL) 76 % (42-75)
[2017-10-14 14:52] LABS: ANISOCYTOSIS 1+; POLYCHROMASIA 1+
[2017-10-14 14:53] LABS: ECHINOCYTES 1+; MICROCYTOSIS 1+
[2017-10-14 14:55] LABS: ALBUMIN 2.6 g/dL (3.4-5.0); ANION GAP 34 mmol/L (5-15); CALCIUM 7.6 mg/dL (8.5-10.1); CHLORIDE 65 mmol/L (98-107)
[2017-10-14 14:56] LABS: <PLATELET ESTIMATE> INCREASED; <PLT MORPHOLOGY> NORMAL PLT MORPH
[2017-10-14 14:57] LABS: HEMOGLOBIN A1C 13.9 % (4.2-6.3)
[2017-10-14 14:59] LABS: CULTURE INDICATED? NO
[2017-10-14] MEDS ORDERED: MIDAZOLAM HCL 50 MG in SODIUM CHLORIDE 0.9% 240 ML IV PRN (15:00)
[2017-10-14] MEDS ORDERED: PROMETHAZINE 25 MG/ML, 1ML IM PRN (15:00)
[2017-10-14] MEDS ORDERED: PROMETHAZINE 25 MG/ML, 1ML IM ONE (15:00)
[2017-10-14] MEDS ORDERED: ONDANSETRON 2MG/ML, 2ML IVPush PRN (15:00)
[2017-10-14] MEDS ORDERED: SODIUM CHLORIDE FLUSH 10ML SYR IVF PRN (15:00)
[2017-10-14] MEDS ORDERED: SODIUM CHLORIDE 0.45% 1,000 ML IV SCH (15:00)
[2017-10-14] MEDS: CEFTRIAXONE PMX 1GM/50ML 50 ML IV SCH (15:00)
[2017-10-14] MEDS ORDERED: POLYETHYLENE GLYCOL 17 GM PACKET PO PRN (15:00)
[2017-10-14] MEDS ORDERED: PROPOFOL 100 ML IV PRN (15:00)
[2017-10-14 15:03] LABS: ALANINE AMINOTRANSFERASE 63 U/L (12-78); ALKALINE PHOSPHATASE 165 U/L (45-117); BILIRUBIN,TOTAL 0.5 mg/dL (0.2-1.0); CREATININE 4.42 mg/dL (0.55-1.02); SALICYLATE LEVEL 4.2 mg/dL (2.8-20.0); TOTAL PROTEIN 6.1 g/dL (6.4-8.2)
[2017-10-14 15:17] LABS: AMPHETAMINE SCREEN, URINE Negative (Negative); BARBITURATE SCREEN, URINE Negative (Negative); BENZODIAZEPINE SCREEN, URINE Negative (Negative); CANNABINOID SCREEN, URINE Negative (Negative); COCAINE SCREEN, URINE Negative (Negative); METHADONE SCREEN, URINE Negative (Negative); OPIATE SCREEN, URINE Negative (Negative)
[2017-10-14] MEDS ORDERED: PROPOFOL 100 ML IV ONE (15:26)
[2017-10-14 15:27] LABS: ACETAMINOPHEN < 2 mcg/mL (10-30)
[2017-10-14] MEDS: ALBUTEROL/IPRATROPIUM 2.5MG/0.5MG, 3 ML INLINE SCH ×3 (16:00→22:12)
[2017-10-14] MEDS ORDERED: LIDOCAINE-MPF 1%, 2ML ENDO PRN (16:00)
[2017-10-14] MEDS ORDERED: SENNOSIDES 8.8 MG/5 ML ORAL SOL NG PRN (16:00)
[2017-10-14] MEDS ORDERED: LACTULOSE 20 GM/30 ML UDC NG PRN (16:00)
[2017-10-14] MEDS ORDERED: BISACODYL 10 MG SUPP PR PRN (16:00)
[2017-10-14] MEDS ORDERED: SENNA/DOCUSATE TABLET NG PRN (16:00)
[2017-10-14] MEDS ORDERED: PHARMACY MAY ADJ FOR RENAL FX MC SCH (16:00)
[2017-10-14] MEDS: DOXYCYCLINE 100 MG in DEXTROSE 5% 250 ML IV SCH (17:00)
[2017-10-14 17:04] LABS: HEMOGLOBIN A1C 14.2 % (4.2-6.3)
[2017-10-14 17:20] LABS: MEAN CORPUSCULAR HEMOGLOBIN 26.5 pg (27.0-34.8); MEAN CORPUSCULAR VOLUME 103.9 fL (80-100); MEAN PLATELET VOLUME 9.6 fL (7.4-10.4); PLATELET COUNT 769 x10^3/uL (130-400); RED BLOOD COUNT 3.11 x10^6/uL (3.82-5.3); RED CELL DISTRIBUTION WIDTH 22.3 % (9.6-15.2)
[2017-10-14 17:24] LABS: MEAN CORPUSCULAR HGB CONC 25.5 g/dL (32.4-35.8)
[2017-10-14] MEDS ORDERED: SENNA/DOCUSATE TABLET PO PRN (17:42)
[2017-10-14 18:52] LABS: ANION GAP 29 mmol/L (5-15); CALCIUM 8.4 mg/dL (8.5-10.1); CHLORIDE 74 mmol/L (98-107)
[2017-10-14 19:00] LABS: CREATININE 4.65 mg/dL (0.55-1.02)
[2017-10-14] MEDS: SODIUM CHLORIDE 0.45% 1,000 ML IV SCH (20:02)
[2017-10-14 20:56] VITALS: BP 116/66
[2017-10-14] MEDS ORDERED: REGULAR INSULIN 250 UNITS in SODIUM CHLORIDE 0.9% 247.5 ML IV PRN (22:18)
[2017-10-14 22:19] LABS: ANION GAP 22 mmol/L (5-15); CALCIUM 8.3 mg/dL (8.5-10.1); CHLORIDE 83 mmol/L (98-107); CREATININE 4.57 mg/dL (0.55-1.02)
[2017-10-15] MEDS: SODIUM CHLORIDE 0.45% 1,000 ML IV SCH ×2 (01:15→05:41)
[2017-10-15] MEDS ORDERED: SODIUM CHLORIDE 0.45% 500 ML IV SCH ×2 (01:28→01:30)
[2017-10-15] MEDS ORDERED: NOREPINEPHRINE 4 MG in SODIUM CHLORIDE 0.9% 246 ML IV PRN (02:00)
[2017-10-15] MEDS: ALBUTEROL/IPRATROPIUM 2.5MG/0.5MG, 3 ML INLINE SCH ×6 (02:25→22:33)
[2017-10-15 02:49] LABS: ANION GAP 17 mmol/L (5-15); CALCIUM 8.5 mg/dL (8.5-10.1); CHLORIDE 95 mmol/L (98-107); CREATININE 3.83 mg/dL (0.55-1.02)
[2017-10-15] MEDS: DOXYCYCLINE 100 MG in DEXTROSE 5% 250 ML IV SCH ×2 (03:22→14:38)
[2017-10-15] MEDS: KSCALE TO 4.5 IV SCH ×2 (03:22→09:30)
[2017-10-15] MEDS ORDERED: POTASSIUM CHLORIDE 40 MEQ in SODIUM CHLORIDE 0.9% 100 ML IV ONE (03:30)
[2017-10-15 04:00] VITALS: BP 95/50
[2017-10-15 04:52] LABS: ANION GAP 18 mmol/L (5-15); CHLORIDE 95 mmol/L (98-107)
[2017-10-15 05:01] LABS: ALANINE AMINOTRANSFERASE 55 U/L (12-78); ALBUMIN 2.3 g/dL (3.4-5.0); ALKALINE PHOSPHATASE 128 U/L (45-117); BILIRUBIN,TOTAL 0.3 mg/dL (0.2-1.0); CALCIUM 8.1 mg/dL (8.5-10.1); CHOL/HDL RATIO 4.2; CHOLESTEROL, TOTAL 171 mg/dL (140-239); CREATININE 3.52 mg/dL (0.55-1.02); HDL CHOL % 24 % (28-40); HDL CHOLESTEROL (DIRECT) 41 mg/dL (40-60); LDL CHOLESTEROL,CALCULATED 61 mg/dL (54-169); LDL/HDL RATIO 1.5 (0.5-3.0); TOTAL PROTEIN 5.6 g/dL (6.4-8.2); TRIGLYCERIDES 343 mg/dL (50-200); VLDL CHOLESTEROL 69 mg/dL (0-25)
[2017-10-15] MEDS: PROPOFOL 100 ML IV PRN ×4 (05:57→23:45)
[2017-10-15 06:05] LABS: MEAN CORPUSCULAR HEMOGLOBIN 26.2 pg (27.0-34.8); MEAN CORPUSCULAR HGB CONC 32.9 g/dL (32.4-35.8); MEAN CORPUSCULAR VOLUME 79.7 fL (80-100); MEAN PLATELET VOLUME 7.7 fL (7.4-10.4); PLATELET COUNT 555 x10^3/uL (130-400); RED BLOOD COUNT 3.06 x10^6/uL (3.82-5.3); RED CELL DISTRIBUTION WIDTH 20.2 % (9.6-15.2)
[2017-10-15 06:27] LABS: BASOPHILS % (AUTO) 1 % (0-1); EOSINOPHILS # (AUTO) 0.01 x10^3/uL (0-0.4); EOSINOPHILS % (AUTO) 0 % (1-7); LYMPHOCYTES # (AUTO) 1.69 x10^3/uL (1-3.4); LYMPHOCYTES % (AUTO) 10 % (22-44); MD SCAN; MONOCYTES # (AUTO) 0.91 x10^3/uL (0.2-0.8); MONOCYTES % (AUTO) 6 % (2-9); NEUTROPHILS % (AUTO) 84 % (42-75)
[2017-10-15] MEDS ORDERED: EPINEPHRINE SYRINGE 0.1 MG/ML, 10ML ONE (06:41)
[2017-10-15] MEDS ORDERED: MAGNESIUM SULFATE PMX 4GM/100M 100 ML IV ONE (07:30)
[2017-10-15] MEDS: PANTOPRAZOLE 40 MG IV IVPush SCH ×2 (08:23→21:02)
[2017-10-15] MEDS: SENNA/DOCUSATE TABLET PO SCH ×2 (08:23→10:34)
[2017-10-15 09:58] LABS: ANION GAP 14 mmol/L (5-15); CALCIUM 8.1 mg/dL (8.5-10.1); CHLORIDE 103 mmol/L (98-107); CREATININE 2.97 mg/dL (0.55-1.02)
[2017-10-15] MEDS ORDERED: D5%-0.45NACL+KCL 20MEQ 1,000 ML IV SCH (10:00)
[2017-10-15] MEDS ORDERED: POTASSIUM CHLORIDE 10% 40 MEQ/30 ML UDC PO ONE (10:30)
[2017-10-15] MEDS ORDERED: INSULIN GLARGINE 100 UNITS/ML, PEN SQ-INSULIN SCH ×2 (10:30→21:00)
[2017-10-15] MEDS: NS + 20MEQ KCL 1,000 ML IV SCH ×2 (10:34→16:46)
[2017-10-15] MEDS: INSULIN LISPRO 100 UNITS/ML, PEN SQ-INSULIN SCH ×3 (10:39→21:04)
[2017-10-15] MEDS: FENTANYL PF 100 MCG/2ML IVPush PRN ×2 (12:13→22:22)
[2017-10-15 13:41] LABS: ANION GAP 10 mmol/L (5-15); CALCIUM 8.2 mg/dL (8.5-10.1); CHLORIDE 106 mmol/L (98-107); CREATININE 2.74 mg/dL (0.55-1.02)
[2017-10-15] MEDS: CEFTRIAXONE PMX 1GM/50ML 50 ML IV SCH (14:38)
[2017-10-15] MEDS ORDERED: INSULIN LISPRO 100 UNITS/ML, PEN SQ-INSULIN ONE (16:00)
[2017-10-15 19:00] LABS: ANION GAP 12 mmol/L (5-15); CALCIUM 8.1 mg/dL (8.5-10.1); CHLORIDE 107 mmol/L (98-107); CREATININE 2.83 mg/dL (0.55-1.02)
[2017-10-15 22:42] LABS: CHLORIDE 110 mmol/L (98-107)
[2017-10-15 22:48] LABS: ANION GAP 10 mmol/L (5-15); CALCIUM 8.1 mg/dL (8.5-10.1)
[2017-10-16] MEDS: FENTANYL PF 100 MCG/2ML IVPush PRN ×3 (00:02→05:12)
[2017-10-16] MEDS: NS + 20MEQ KCL 1,000 ML IV SCH (01:44)
[2017-10-16] MEDS: DOXYCYCLINE 100 MG in DEXTROSE 5% 250 ML IV SCH (02:30)
[2017-10-16] MEDS: ALBUTEROL/IPRATROPIUM 2.5MG/0.5MG, 3 ML INLINE SCH ×2 (02:40→07:00)
[2017-10-16 02:54] LABS: ANION GAP 8 mmol/L (5-15); CALCIUM 7.9 mg/dL (8.5-10.1); CHLORIDE 110 mmol/L (98-107); CREATININE 2.38 mg/dL (0.55-1.02)
[2017-10-16 04:00] VITALS: BP 108/52
[2017-10-16] MEDS: PROPOFOL 100 ML IV PRN (04:28)
[2017-10-16 06:28] LABS: MEAN CORPUSCULAR VOLUME 81.1 fL (80-100); PLATELET COUNT 421 x10^3/uL (130-400); RED BLOOD COUNT 2.85 x10^6/uL (3.82-5.3); RED CELL DISTRIBUTION WIDTH 22.2 % (9.6-15.2)
[2017-10-16] MEDS: INSULIN LISPRO 100 UNITS/ML, PEN SQ-INSULIN SCH ×4 (07:00→20:33)
[2017-10-16 07:05] LABS: BASOPHILS # (AUTO) 0.08 x10^3/uL (0-0.1); BASOPHILS % (AUTO) 1 % (0-1); EOSINOPHILS # (AUTO) 0.09 x10^3/uL (0-0.4); EOSINOPHILS % (AUTO) 1 % (1-7); LYMPHOCYTES # (AUTO) 1.86 x10^3/uL (1-3.4); LYMPHOCYTES % (AUTO) 18 % (22-44); MD SCAN; MONOCYTES # (AUTO) 0.52 x10^3/uL (0.2-0.8); MONOCYTES % (AUTO) 5 % (2-9); NEUTROPHILS # (AUTO) 7.75 x10^3/uL (1.8-6.8); NEUTROPHILS % (AUTO) 75 % (42-75)
[2017-10-16] MEDS ORDERED: INSULIN LISPRO 100 UNITS/ML, PEN SQ-INSULIN ONE (07:30)
[2017-10-16 07:31] LABS: ANION GAP 10 mmol/L (5-15); CALCIUM 7.7 mg/dL (8.5-10.1); CHLORIDE 106 mmol/L (98-107); CREATININE 2.38 mg/dL (0.55-1.02)
[2017-10-16] MEDS: INSULIN GLARGINE 100 UNITS/ML, PEN SQ-INSULIN SCH ×2 (07:31→22:06)
[2017-10-16] MEDS: PANTOPRAZOLE 40 MG IV IVPush SCH ×2 (07:58→20:33)
[2017-10-16] MEDS: SODIUM CHLORIDE 0.9% 1,000 ML IV SCH ×2 (08:21→16:53)
[2017-10-16] MEDS ORDERED: ALBUTEROL/IPRATROPIUM 2.5MG/0.5MG, 3 ML NPPB PRN (10:00)
[2017-10-16] MEDS: ONDANSETRON ODT 4 MG PO PRN ×2 (10:27→22:10)
[2017-10-16] MEDS: CEFTRIAXONE PMX 1GM/50ML 50 ML IV SCH (15:04)
[2017-10-17] MEDS: morphine SULFATE 10 MG/ML, 1ML IVPush PRN ×5 (00:12→22:55)
[2017-10-17] MEDS ORDERED: D5%-0.9% NACL 1,000 ML IV SCH (03:30)
[2017-10-17 03:45] VITALS: BP 118/68
[2017-10-17 03:55] VITALS: BP 116/72
[2017-10-17 04:00] VITALS: BP 109/78
[2017-10-17 05:55] VITALS: BP 128/67
[2017-10-17 08:22] LABS: MEAN CORPUSCULAR HEMOGLOBIN 26.4 pg (27.0-34.8); MEAN CORPUSCULAR HGB CONC 32.7 g/dL (32.4-35.8); MEAN CORPUSCULAR VOLUME 80.8 fL (80-100); MEAN PLATELET VOLUME 7.7 fL (7.4-10.4); PLATELET COUNT 330 x10^3/uL (130-400); RED BLOOD COUNT 3.03 x10^6/uL (3.82-5.3); RED CELL DISTRIBUTION WIDTH 20.9 % (9.6-15.2)
[2017-10-17 08:24] LABS: ALANINE AMINOTRANSFERASE 58 U/L (12-78); ALBUMIN 2.1 g/dL (3.4-5.0); ANION GAP 7 mmol/L (5-15); CHLORIDE 113 mmol/L (98-107); CREATININE 1.53 mg/dL (0.55-1.02)
[2017-10-17 08:26] LABS: ALKALINE PHOSPHATASE 115 U/L (45-117); BILIRUBIN,TOTAL 0.5 mg/dL (0.2-1.0)
[2017-10-17 08:33] LABS: BASOPHILS # (AUTO) 0.04 x10^3/uL (0-0.1); BASOPHILS % (AUTO) 1 % (0-1); EOSINOPHILS # (AUTO) 0.22 x10^3/uL (0-0.4); EOSINOPHILS % (AUTO) 4 % (1-7); LYMPHOCYTES # (AUTO) 2.09 x10^3/uL (1-3.4); LYMPHOCYTES % (AUTO) 37 % (22-44); MD SCAN; MONOCYTES # (AUTO) 0.35 x10^3/uL (0.2-0.8); MONOCYTES % (AUTO) 6 % (2-9); NEUTROPHILS # (AUTO) 2.98 x10^3/uL (1.8-6.8); NEUTROPHILS % (AUTO) 53 % (42-75)
[2017-10-17] MEDS: SENNA/DOCUSATE TABLET PO SCH (08:37)
[2017-10-17] MEDS: PANTOPRAZOLE 40 MG IV IVPush SCH ×2 (09:00→22:12)
[2017-10-17] MEDS: INSULIN LISPRO 100 UNITS/ML, PEN SQ-INSULIN SCH ×4 (09:04→20:55)
[2017-10-17] MEDS: INSULIN GLARGINE 100 UNITS/ML, PEN SQ-INSULIN SCH ×2 (09:04→21:00)
[2017-10-17 14:33] VITALS: BP 118/85
[2017-10-17] MEDS: CEFTRIAXONE PMX 1GM/50ML 50 ML IV SCH (15:37)
[2017-10-17 20:00] VITALS: BP 135/95
[2017-10-17] MEDS ORDERED: DEXTROSE 4 GM TAB.CHEW PO PRN (22:00)
[2017-10-17] MEDS ORDERED: GLUCAGON 1 MG IM PRN (22:00)
[2017-10-17] MEDS ORDERED: DEXTROSE 50%, 50ML SYRINGE IVPush PRN (22:00)
[2017-10-17] MEDS ORDERED: DEXTROSE 50%, 50ML SYRINGE ONE (22:01)
[2017-10-17] MEDS: SODIUM CHLORIDE FLUSH 10ML SYR IVF SCH (22:12)
[2017-10-17] MEDS ORDERED: DEXTROSE 50%, 50ML SYRINGE IVPush ONE (22:30)
[2017-10-17] MEDS: ONDANSETRON ODT 4 MG PO PRN (22:55)
[2017-10-18 01:21] VITALS: BP 124/81
[2017-10-18 06:31] LABS: BASOPHILS # (AUTO) 0.07 x10^3/uL (0-0.1); BASOPHILS % (AUTO) 1 % (0-1); EOSINOPHILS # (AUTO) 0.28 x10^3/uL (0-0.4); EOSINOPHILS % (AUTO) 5 % (1-7); LYMPHOCYTES # (AUTO) 2.88 x10^3/uL (1-3.4); LYMPHOCYTES % (AUTO) 48 % (22-44); MD NO; MEAN CORPUSCULAR HGB CONC 32.7 g/dL (32.4-35.8); MEAN CORPUSCULAR VOLUME 82.5 fL (80-100); MEAN PLATELET VOLUME 7.8 fL (7.4-10.4); MONOCYTES # (AUTO) 0.51 x10^3/uL (0.2-0.8); MONOCYTES % (AUTO) 9 % (2-9); NEUTROPHILS # (AUTO) 2.23 x10^3/uL (1.8-6.8); NEUTROPHILS % (AUTO) 37 % (42-75); PLATELET COUNT 417 x10^3/uL (130-400); RED BLOOD COUNT 3.82 x10^6/uL (3.82-5.3); RED CELL DISTRIBUTION WIDTH 20.9 % (9.6-15.2)
[2017-10-18] MEDS: morphine SULFATE 10 MG/ML, 1ML IVPush PRN ×2 (06:34→13:13)
[2017-10-18 06:42] LABS: ALANINE AMINOTRANSFERASE 60 U/L (12-78); ALBUMIN 2.5 g/dL (3.4-5.0); ANION GAP 10 mmol/L (5-15); CALCIUM 7.9 mg/dL (8.5-10.1); CHLORIDE 108 mmol/L (98-107); CREATININE 1.22 mg/dL (0.55-1.02)
[2017-10-18 06:44] LABS: ALKALINE PHOSPHATASE 137 U/L (45-117); BILIRUBIN,TOTAL 0.6 mg/dL (0.2-1.0); TOTAL PROTEIN 6.2 g/dL (6.4-8.2)
[2017-10-18] MEDS: INSULIN LISPRO 100 UNITS/ML, PEN SQ-INSULIN SCH ×4 (07:00→20:18)
[2017-10-18 08:34] VITALS: BP 139/87
[2017-10-18] MEDS: INSULIN GLARGINE 100 UNITS/ML, PEN SQ-INSULIN SCH ×2 (09:00→20:27)
[2017-10-18] MEDS: PANTOPRAZOLE 40 MG IV IVPush SCH (10:06)
[2017-10-18] MEDS: ONDANSETRON ODT 4 MG PO PRN (10:06)
[2017-10-18] MEDS: SODIUM CHLORIDE FLUSH 10ML SYR IVF SCH ×2 (10:06→20:26)
[2017-10-18] MEDS: SENNA/DOCUSATE TABLET PO SCH (10:06)
[2017-10-18] MEDS: ACETAMINOPHEN 325 MG TABLET PO PRN ×2 (10:06→18:42)
[2017-10-18 14:52] VITALS: BP 126/74
[2017-10-18] MEDS: CEFTRIAXONE PMX 1GM/50ML 50 ML IV SCH (15:33)
[2017-10-18] MEDS: LACTOBACILLUS CHEW TABLET PO SCH ×2 (16:00→20:26)
[2017-10-18 19:03] VITALS: BP 144/77
[2017-10-19 01:36] VITALS: BP 153/75
[2017-10-19] MEDS: INSULIN LISPRO 100 UNITS/ML, PEN SQ-INSULIN SCH ×4 (07:00→20:56)
[2017-10-19] MEDS: SENNA/DOCUSATE TABLET PO SCH (09:00)
[2017-10-19 10:32] VITALS: BP 145/94
[2017-10-19] MEDS: ACETAMINOPHEN 325 MG TABLET PO PRN ×3 (10:35→20:54)
[2017-10-19] MEDS: LACTOBACILLUS CHEW TABLET PO SCH ×3 (10:36→20:54)
[2017-10-19] MEDS: LISINOPRIL 5 MG TABLET PO SCH (10:36)
[2017-10-19] MEDS: SODIUM CHLORIDE FLUSH 10ML SYR IVF SCH ×2 (10:36→20:54)
[2017-10-19] MEDS: INSULIN GLARGINE 100 UNITS/ML, PEN SQ-INSULIN SCH ×2 (10:39→20:55)
[2017-10-19 16:13] VITALS: BP 129/80
[2017-10-19 20:58] VITALS: BP 148/87
[2017-10-20 00:38] VITALS: BP 147/79
[2017-10-20] MEDS: ACETAMINOPHEN 325 MG TABLET PO PRN ×2 (03:06→08:44)
[2017-10-20 05:50] LABS: BASOPHILS # (AUTO) 0.07 x10^3/uL (0-0.1); BASOPHILS % (AUTO) 1 % (0-1); EOSINOPHILS # (AUTO) 0.15 x10^3/uL (0-0.4); EOSINOPHILS % (AUTO) 2 % (1-7); LYMPHOCYTES # (AUTO) 2.54 x10^3/uL (1-3.4); LYMPHOCYTES % (AUTO) 34 % (22-44); MD NO; MEAN CORPUSCULAR HEMOGLOBIN 26.3 pg (27.0-34.8); MEAN CORPUSCULAR HGB CONC 32.3 g/dL (32.4-35.8); MEAN CORPUSCULAR VOLUME 81.3 fL (80-100); MEAN PLATELET VOLUME 8.4 fL (7.4-10.4); MONOCYTES # (AUTO) 0.58 x10^3/uL (0.2-0.8); MONOCYTES % (AUTO) 8 % (2-9); NEUTROPHILS % (AUTO) 55 % (42-75); PLATELET COUNT 451 x10^3/uL (130-400); RED CELL DISTRIBUTION WIDTH 20.4 % (9.6-15.2)
[2017-10-20] MEDS ORDERED: OMEPRAZOLE 20 MG CAPSULE.DR PO SCH (07:30)
[2017-10-20 08:10] VITALS: BP 148/87
[2017-10-20] MEDS: LISINOPRIL 5 MG TABLET PO SCH (08:36)
[2017-10-20] MEDS: LACTOBACILLUS CHEW TABLET PO SCH ×2 (08:36→16:05)
[2017-10-20] MEDS: INSULIN GLARGINE 100 UNITS/ML, PEN SQ-INSULIN SCH (08:37)
[2017-10-20] MEDS: INSULIN LISPRO 100 UNITS/ML, PEN SQ-INSULIN SCH ×3 (08:37→16:00)
[2017-10-20] MEDS: SODIUM CHLORIDE FLUSH 10ML SYR IVF SCH (08:37)
[2017-10-20] MEDS: SENNA/DOCUSATE TABLET PO SCH (08:38)
[2017-10-20 11:59] VITALS: BP 157/88
[2017-10-20] MEDS ORDERED: LISI5TAB7 PO (13:46)
[2017-10-20] MEDS ORDERED: INSU100I28 SQ-INSULIN (13:46)
[2017-10-20] MEDS ORDERED: OMEP-110 PO (13:46)
[2017-10-20] MEDS ORDERED: ACET325T14 PO (13:46)
[2017-10-20] MEDS ORDERED: ACID1TAB7 PO (13:46)
[2017-10-20] MEDS ORDERED: INSU100I11 SQ-INSULIN (13:46)
== END 2017-10-20 17:08 | disposition home or self-care (01) | DRG 871 ==
LOC: ED 14:30 → EDIP 14:47 → CCU 17:33 → 4WST 10-17 14:17
PROVIDERS: ADMIT Internal Medicine; ATTEND Internal Medicine
PROC: 5A1945Z Respiratory Ventilation, 24-96 Consecutive Hours (ICD-10-PCS; 2017-10-14)
PROC: B548ZZA Ultrasonography of Superior Vena Cava, Guidance (ICD-10-PCS; 2017-10-14)
PROC: 3E0G8GC Introduction of Other Therapeutic Substance into Upper GI, Via Natural or Artificial Opening Endoscopic (ICD-10-PCS; 2017-10-14)
PROC: 0W3P8ZZ Control Bleeding in Gastrointestinal Tract, Via Natural or Artificial Opening Endoscopic (ICD-10-PCS; 2017-10-14)
PROC: 0BH17EZ Insertion of Endotracheal Airway into Trachea, Via Natural or Artificial Opening (ICD-10-PCS; 2017-10-14)
PROC: 02HV33Z Insertion of Infusion Device into Superior Vena Cava, Percutaneous Approach (ICD-10-PCS; principal; 2017-10-14 15:10)
PROC: 30233N1 Transfusion of Nonautologous Red Blood Cells into Peripheral Vein, Percutaneous Approach (ICD-10-PCS; 2017-10-17)
DX: A41.9 Sepsis, unspecified organism (principal); E10.11 Type 1 diabetes mellitus with ketoacidosis with coma; J96.00 Acute respiratory failure, unspecified whether with hypoxia or hypercapnia; N17.0 Acute kidney failure with tubular necrosis; G93.41 Metabolic encephalopathy; E43 Unspecified severe protein-calorie malnutrition; R57.9 Shock, unspecified; J18.9 Pneumonia, unspecified organism; K22.6 Gastro-esophageal laceration-hemorrhage syndrome; K85.00 Idiopathic acute pancreatitis without necrosis or infection; E87.1 Hypo-osmolality and hyponatremia; E10.22 Type 1 diabetes mellitus with diabetic chronic kidney disease; E10.40 Type 1 diabetes mellitus with diabetic neuropathy, unspecified; D53.9 Nutritional anemia, unspecified; E10.649 Type 1 diabetes mellitus with hypoglycemia without coma; Z68.22 Body mass index [BMI] 22.0-22.9, adult; E83.39 Other disorders of phosphorus metabolism; E87.5 Hyperkalemia; E87.6 Hypokalemia; E87.8 Other disorders of electrolyte and fluid balance, not elsewhere classified; F41.1 Generalized anxiety disorder; F43.10 Post-traumatic stress disorder, unspecified; I12.9 Hypertensive chronic kidney disease with stage 1 through stage 4 chronic kidney disease, or unspecified chronic kidney disease; J45.909 Unspecified asthma, uncomplicated; K20.9 Esophagitis, unspecified; N18.3 Chronic kidney disease, stage 3 (moderate); F32.9 Major depressive disorder, single episode, unspecified; M19.90 Unspecified osteoarthritis, unspecified site; Z59.0 Homelessness; Z72.0 Tobacco use; Z79.4 Long term (current) use of insulin; Z83.3 Family history of diabetes mellitus; Z85.118 Personal history of other malignant neoplasm of bronchus and lung; Z91.14 Patient's other noncompliance with medication regimen; Z71.6 Tobacco abuse counseling; Z90.49 Acquired absence of other specified parts of digestive tract
CPT/HCPCS: 31500; 36415; 36569; 36600; 70450; 71045; 80048; 80053; 80061; 80307; 80329; 81001; 82010; 82140; 82533; 82800; 82803; 82947; 82962; 83036; 83605; 83690; 83735; 84100; 84145; 84443; 84478; 85014; 85018; 85025; 85027; 85610; 85730; 86850; 86900; 86923; 87040; 87070; 87081; 87205; 93005; 94002; 94003; 94640; 96361; 96365; 96375; 96376; J0696; J1815; J2250; J2550; J2704; J3010; J3480; J7042; J7060; J7620; Q0162; C9113; G0480; J0330; J2270; J3475; J7030; J7050; P9016

== ENCOUNTER 2017-10-25 13:16 | Inpatient (IN) | payer MEDICAID ==
[~2017-10-25] VITALS: Ht 157.5 cm; Wt 55.8 kg
[~2017-10-25 13:16] MED LIST changes: +ACET325T14 PO; +ACID1TAB7 PO; -ETOMIDATE 40 MG/20 ML ONE; +INSU100I11 SQ-INSULIN; +LISI5TAB7 PO; -MIDAZOLAM 1 MG/ML, 5ML ONE; +OMEP-110 PO; -PROPOFOL 10 MG/ML, 100ML IV ONE; -SUCCINYLCHOLINE 20 MG/ML, 10ML ONE
[2017-10-25] MEDS ORDERED: SODIUM CHLORIDE 0.9% 1,000ML IVBOLUS ONE (13:30)
[2017-10-25] MEDS ORDERED: LORazepam 2 MG/ML, 1ML IVPush ONE (13:30)
[2017-10-25 14:00] LABS: PH, VENOUS 7.324 pH (7.320-7.420)
[2017-10-25 14:02] LABS: BASOPHILS # (AUTO) 0.06 x10^3/uL (0-0.1); BASOPHILS % (AUTO) 1 % (0-1); EOSINOPHILS # (AUTO) 0.33 x10^3/uL (0-0.4); EOSINOPHILS % (AUTO) 5 % (1-7); LYMPHOCYTES # (AUTO) 1.74 x10^3/uL (1-3.4); LYMPHOCYTES % (AUTO) 28 % (22-44); MD NO; MEAN CORPUSCULAR HEMOGLOBIN 27.3 pg (27.0-34.8); MEAN CORPUSCULAR HGB CONC 31.8 g/dL (32.4-35.8); MEAN CORPUSCULAR VOLUME 85.7 fL (80-100); MEAN PLATELET VOLUME 8.3 fL (7.4-10.4); MONOCYTES # (AUTO) 0.49 x10^3/uL (0.2-0.8); MONOCYTES % (AUTO) 8 % (2-9); NEUTROPHILS # (AUTO) 3.67 x10^3/uL (1.8-6.8); NEUTROPHILS % (AUTO) 58 % (42-75); PLATELET COUNT 863 x10^3/uL (130-400); RED BLOOD COUNT 3.81 x10^6/uL (3.82-5.3); RED CELL DISTRIBUTION WIDTH 20.4 % (9.6-15.2)
[2017-10-25] MEDS ORDERED: LORazepam 2 MG/ML, 1ML ONE (14:05)
[2017-10-25 14:10] LABS: ALANINE AMINOTRANSFERASE 39 U/L (12-78); ALBUMIN 3.1 g/dL (3.4-5.0); ANION GAP 11 mmol/L (5-15); CALCIUM 8.7 mg/dL (8.5-10.1); CHLORIDE 90 mmol/L (98-107); CREATININE 1.39 mg/dL (0.55-1.02)
[2017-10-25 14:15] LABS: ALKALINE PHOSPHATASE 141 U/L (45-117); BILIRUBIN,TOTAL 0.3 mg/dL (0.2-1.0); TOTAL PROTEIN 6.8 g/dL (6.4-8.2)
[2017-10-25] MEDS ORDERED: INSULIN REGULAR 100 UNITS/ML, 3ML VIAL ONE (14:27)
[2017-10-25] MEDS ORDERED: INSULIN REGULAR 100 UNITS/ML, 3ML VIAL IVPush ONE (14:30)
[2017-10-25 14:43] LABS: ACETONE, SERUM Moderate(40mg/dL) mg/dL (Negative)
[2017-10-25] MEDS ORDERED: ONDANSETRON 2MG/ML, 2ML IVPush PRN (16:00)
[2017-10-25] MEDS: NS + 20MEQ KCL 1,000 ML IV SCH (16:39)
[2017-10-25] MEDS: LACTOBACILLUS CHEW TABLET PO SCH ×2 (16:40→20:04)
[2017-10-25] MEDS: FERROUS SULFATE 325 MG TABLET PO SCH (16:40)
[2017-10-25] MEDS: HEPARIN 5,000 UNITS/ML, 1ML SQ SCH (16:40)
[2017-10-25] MEDS: INSULIN REGULAR 100 UNITS/ML, 3ML VIAL SQ-INSULIN SCH ×2 (17:39→20:25)
[2017-10-25 19:00] VITALS: BP 124/71
[2017-10-25] MEDS: ISOSORBIDE DINITRATE 10 MG TABLET PO SCH (20:04)
[2017-10-25] MEDS: LORazepam 0.5MG TABLET PO SCH (20:04)
[2017-10-25] MEDS: ACETAMINOPHEN 325 MG TABLET PO PRN (20:06)
[2017-10-25] MEDS: INSULIN GLARGINE 100 UNITS/ML, PEN SQ-INSULIN SCH (20:25)
[2017-10-26 00:40] VITALS: BP 134/67
[2017-10-26] MEDS: HEPARIN 5,000 UNITS/ML, 1ML SQ SCH ×2 (04:00→16:00)
[2017-10-26 08:01] VITALS: BP 136/74
[2017-10-26] MEDS: INSULIN REGULAR 100 UNITS/ML, 3ML VIAL SQ-INSULIN SCH ×4 (08:33→22:30)
[2017-10-26] MEDS: OMEPRAZOLE 20 MG CAPSULE.DR PO SCH (08:34)
[2017-10-26 08:35] LABS: ANION GAP 11 mmol/L (5-15); CHLORIDE 107 mmol/L (98-107); CREATININE 0.87 mg/dL (0.55-1.02)
[2017-10-26] MEDS: LORazepam 0.5MG TABLET PO SCH ×2 (08:36→22:24)
[2017-10-26] MEDS: LACTOBACILLUS CHEW TABLET PO SCH ×3 (08:36→22:24)
[2017-10-26] MEDS: ISOSORBIDE DINITRATE 10 MG TABLET PO SCH ×3 (08:37→22:24)
[2017-10-26] MEDS: LISINOPRIL 5 MG TABLET PO SCH (08:37)
[2017-10-26] MEDS: INSULIN GLARGINE 100 UNITS/ML, PEN SQ-INSULIN SCH ×2 (08:39→22:29)
[2017-10-26] MEDS: ACETAMINOPHEN 325 MG TABLET PO PRN ×3 (08:50→18:44)
[2017-10-26] MEDS: KETOROLAC 30 MG/1 ML IVPush PRN ×3 (11:10→22:30)
[2017-10-26] MEDS: NS + 20MEQ KCL 1,000 ML IV SCH (11:12)
[2017-10-26] MEDS: NICOTINE 14MG/24 HR PATCH.TD24 TD SCH (11:12)
[2017-10-26 13:32] VITALS: BP 119/74
[2017-10-26 14:38] LABS: MICROSCOPIC INDICATED
[2017-10-26 14:40] LABS: CULTURE INDICATED? NO
[2017-10-26 18:27] VITALS: BP 123/75
[2017-10-27] MEDS: NS + 20MEQ KCL 1,000 ML IV SCH ×2 (00:11→21:08)
[2017-10-27 00:19] VITALS: BP 120/77
[2017-10-27] MEDS: GABAPENTIN 300 MG CAPSULE PO SCH ×4 (01:15→21:08)
[2017-10-27] MEDS: HEPARIN 5,000 UNITS/ML, 1ML SQ SCH ×2 (04:00→16:00)
[2017-10-27 05:11] LABS: BASOPHILS # (AUTO) 0.06 x10^3/uL (0-0.1); BASOPHILS % (AUTO) 1 % (0-1); EOSINOPHILS # (AUTO) 0.34 x10^3/uL (0-0.4); EOSINOPHILS % (AUTO) 5 % (1-7); LYMPHOCYTES % (AUTO) 41 % (22-44); MD NO; MEAN CORPUSCULAR HEMOGLOBIN 27.5 pg (27.0-34.8); MEAN CORPUSCULAR HGB CONC 32.5 g/dL (32.4-35.8); MEAN CORPUSCULAR VOLUME 84.6 fL (80-100); MEAN PLATELET VOLUME 7.8 fL (7.4-10.4); MONOCYTES # (AUTO) 0.32 x10^3/uL (0.2-0.8); MONOCYTES % (AUTO) 4 % (2-9); NEUTROPHILS # (AUTO) 3.66 x10^3/uL (1.8-6.8); NEUTROPHILS % (AUTO) 50 % (42-75); PLATELET COUNT 660 x10^3/uL (130-400); RED BLOOD COUNT 3.09 x10^6/uL (3.82-5.3); RED CELL DISTRIBUTION WIDTH 21.5 % (9.6-15.2)
[2017-10-27 05:21] LABS: ANION GAP 7 mmol/L (5-15); CALCIUM 8.2 mg/dL (8.5-10.1); CHLORIDE 112 mmol/L (98-107); CREATININE 0.67 mg/dL (0.55-1.02)
[2017-10-27] MEDS: KETOROLAC 30 MG/1 ML IVPush PRN ×3 (06:36→21:09)
[2017-10-27] MEDS: ACETAMINOPHEN 325 MG TABLET PO PRN ×3 (06:36→20:00)
[2017-10-27] MEDS: INSULIN REGULAR 100 UNITS/ML, 3ML VIAL SQ-INSULIN SCH ×4 (07:00→21:20)
[2017-10-27 07:18] VITALS: BP 145/79
[2017-10-27] MEDS: OMEPRAZOLE 20 MG CAPSULE.DR PO SCH (07:30)
[2017-10-27] MEDS: ISOSORBIDE DINITRATE 10 MG TABLET PO SCH ×3 (08:57→21:08)
[2017-10-27] MEDS: LORazepam 0.5MG TABLET PO SCH ×2 (08:57→21:08)
[2017-10-27] MEDS: LACTOBACILLUS CHEW TABLET PO SCH ×3 (08:57→21:08)
[2017-10-27] MEDS: NICOTINE 14MG/24 HR PATCH.TD24 TD SCH (08:58)
[2017-10-27] MEDS: LISINOPRIL 5 MG TABLET PO SCH (08:58)
[2017-10-27] MEDS: LIDODERM 5% PATCH TD SCH (10:48)
[2017-10-27] MEDS: CYCLOBENZAPRINE 10 MG TABLET PO PRN ×3 (10:48→20:00)
[2017-10-27] MEDS: INSULIN GLARGINE 100 UNITS/ML, PEN SQ-INSULIN SCH ×2 (11:40→21:20)
[2017-10-27 15:59] VITALS: BP 162/95
[2017-10-27] MEDS: FERROUS SULFATE 325 MG TABLET PO SCH (16:00)
[2017-10-27 19:30] VITALS: BP 151/83
[2017-10-27] MEDS ORDERED: BISACODYL 10 MG SUPP PR PRN (21:00)
[2017-10-27] MEDS ORDERED: DIPHENHYDRAMINE 12.5MG/5ML, 10ML UDC PO PRN (21:00)
[2017-10-28] MEDS: ACETAMINOPHEN 325 MG TABLET PO PRN ×3 (00:47→12:18)
[2017-10-28 02:02] VITALS: BP 146/81
[2017-10-28] MEDS: HEPARIN 5,000 UNITS/ML, 1ML SQ SCH (03:54)
[2017-10-28] MEDS: KETOROLAC 30 MG/1 ML IVPush PRN ×2 (05:17→12:18)
[2017-10-28 07:21] VITALS: BP 136/77
[2017-10-28] MEDS: INSULIN REGULAR 100 UNITS/ML, 3ML VIAL SQ-INSULIN SCH ×2 (08:22→12:30)
[2017-10-28] MEDS: ISOSORBIDE DINITRATE 10 MG TABLET PO SCH (08:24)
[2017-10-28] MEDS: GABAPENTIN 300 MG CAPSULE PO SCH (08:24)
[2017-10-28] MEDS: LACTOBACILLUS CHEW TABLET PO SCH (08:24)
[2017-10-28] MEDS: OMEPRAZOLE 20 MG CAPSULE.DR PO SCH (08:24)
[2017-10-28] MEDS: LISINOPRIL 5 MG TABLET PO SCH (08:25)
[2017-10-28] MEDS: LORazepam 0.5MG TABLET PO SCH (08:25)
[2017-10-28] MEDS: NICOTINE 14MG/24 HR PATCH.TD24 TD SCH (08:25)
[2017-10-28] MEDS: CYCLOBENZAPRINE 10 MG TABLET PO PRN (08:25)
[2017-10-28] MEDS: INSULIN GLARGINE 100 UNITS/ML, PEN SQ-INSULIN SCH (08:26)
[2017-10-28] MEDS ORDERED: DOCUSATE 100 MG CAPSULE PO SCH (09:00)
[2017-10-28] MEDS: NS + 20MEQ KCL 1,000 ML IV SCH (09:18)
[2017-10-28] MEDS: LIDODERM 5% PATCH TD SCH (10:19)
[2017-10-28 13:29] VITALS: BP 168/89
[2017-10-28 13:44] VITALS: BP 151/80
== END 2017-10-28 14:18 | disposition home health service (06) | DRG 438 ==
LOC: ED 14:22 → EDIP 14:23 → ED 14:32 → 3NE 15:39
PROVIDERS: ADMIT Internal Medicine; ATTEND Internal Medicine
DX: K85.90 Acute pancreatitis without necrosis or infection, unspecified (principal); E11.00 Type 2 diabetes mellitus with hyperosmolarity without nonketotic hyperglycemic-hyperosmolar coma (NKHHC); N17.0 Acute kidney failure with tubular necrosis; E11.22 Type 2 diabetes mellitus with diabetic chronic kidney disease; E11.40 Type 2 diabetes mellitus with diabetic neuropathy, unspecified; D50.9 Iron deficiency anemia, unspecified; F17.210 Nicotine dependence, cigarettes, uncomplicated; E87.1 Hypo-osmolality and hyponatremia; F43.10 Post-traumatic stress disorder, unspecified; G89.29 Other chronic pain; I13.10 Hypertensive heart and chronic kidney disease without heart failure, with stage 1 through stage 4 chronic kidney disease, or unspecified chronic kidney disease; J45.909 Unspecified asthma, uncomplicated; N18.9 Chronic kidney disease, unspecified; Z79.4 Long term (current) use of insulin; Z79.899 Other long term (current) drug therapy; Z83.3 Family history of diabetes mellitus; Z87.19 Personal history of other diseases of the digestive system; Z91.19 Patient's noncompliance with other medical treatment and regimen
CPT/HCPCS: 36415; 80048; 80053; 81001; 82010; 82803; 82947; 82962; 83690; 83735; 84100; 84703; 85025; 93005; 96361; 96374; 96375; J1815; J1885; J3480; J2060; J7030

== ENCOUNTER 2018-04-02 18:46 | Emergency (ER) | payer MEDICAID ==
[~2018-04-02] VITALS: Ht 157.5 cm; Wt 51.0 kg
[2018-04-02] MEDS ORDERED: LORazepam 2 MG/ML, 1ML IVPush ONE ×2 (19:00→20:00)
[2018-04-02 19:03] LABS: BASOPHILS # (AUTO) 0.16 x10^3/uL (0-0.1); BASOPHILS % (AUTO) 1 % (0-1); EOSINOPHILS # (AUTO) 0.45 x10^3/uL (0-0.4); EOSINOPHILS % (AUTO) 4 % (1-7); LYMPHOCYTES # (AUTO) 3.42 x10^3/uL (1-3.4); LYMPHOCYTES % (AUTO) 27 % (22-44); MD NO; MEAN CORPUSCULAR HEMOGLOBIN 31.6 pg (27.0-34.8); MEAN CORPUSCULAR HGB CONC 34.3 g/dL (32.4-35.8); MEAN CORPUSCULAR VOLUME 92.2 fL (80-100); MONOCYTES # (AUTO) 0.51 x10^3/uL (0.2-0.8); MONOCYTES % (AUTO) 4 % (2-9); NEUTROPHILS # (AUTO) 8.27 x10^3/uL (1.8-6.8); NEUTROPHILS % (AUTO) 65 % (42-75); PLATELET COUNT 552 x10^3/uL (130-400); RED BLOOD COUNT 4.62 x10^6/uL (3.82-5.3); RED CELL DISTRIBUTION WIDTH 14.2 % (9.6-15.2)
[2018-04-02] MEDS ORDERED: LORazepam 2 MG/ML, 1ML ONE (19:12)
[2018-04-02 19:13] LABS: INTERNATIONAL NORMALIZED RATIO 0.93 (0.93-1.1); PROTHROMBIN TIME 9.6 Seconds (9.6-11.5)
[2018-04-02 20:03] VITALS: BP 122/101
[2018-04-02] MEDS ORDERED: OMNIPAQUE 350 MG/ML, 100ML BOTTLE ONE (20:19)
[2018-04-02] MEDS ORDERED: ASPIRIN 81 MG TABLET CHEW ONE (21:16)
[2018-04-02] MEDS ORDERED: ASPIRIN 81 MG TABLET EC PO ONE (21:30)
== END 2018-04-02 21:52 ==
LOC: ED 20:39
DX: G45.9 Transient cerebral ischemic attack, unspecified (principal); I10 Essential (primary) hypertension; E11.9 Type 2 diabetes mellitus without complications; F17.200 Nicotine dependence, unspecified, uncomplicated; Z90.49 Acquired absence of other specified parts of digestive tract
CPT/HCPCS: 36415; 70450; 70496; 70498; 80047; 85025; 85610; 85730; 93005; 96374; 99285; J2060; Q9967

== ENCOUNTER 2018-04-09 13:05 | Inpatient (IN) | payer MEDICAID ==
[~2018-04-09] VITALS: Ht 157.5 cm; Wt 62.7 kg
[2018-04-09 14:27] LABS: BASOPHILS # (AUTO) 0.04 x10^3/uL (0-0.1); BASOPHILS % (AUTO) 1 % (0-1); EOSINOPHILS # (AUTO) 0.74 x10^3/uL (0-0.4); EOSINOPHILS % (AUTO) 9 % (1-7); LYMPHOCYTES % (AUTO) 30 % (22-44); MD NO; MEAN CORPUSCULAR HEMOGLOBIN 30.7 pg (27.0-34.8); MEAN CORPUSCULAR HGB CONC 33.3 g/dL (32.4-35.8); MEAN CORPUSCULAR VOLUME 92.3 fL (80-100); MEAN PLATELET VOLUME 8.2 fL (7.4-10.4); MONOCYTES # (AUTO) 0.53 x10^3/uL (0.2-0.8); MONOCYTES % (AUTO) 6 % (2-9); NEUTROPHILS # (AUTO) 4.52 x10^3/uL (1.8-6.8); NEUTROPHILS % (AUTO) 54 % (42-75); PLATELET COUNT 334 x10^3/uL (130-400); RED BLOOD COUNT 4.14 x10^6/uL (3.82-5.3); RED CELL DISTRIBUTION WIDTH 13.9 % (9.6-15.2)
[2018-04-09] MEDS ORDERED: ASPIRIN 81 MG TABLET CHEW PO ONE (14:30)
[2018-04-09 14:39] LABS: ALBUMIN 2.7 g/dL (3.4-5.0); ANION GAP 9 mmol/L (5-15); CALCIUM 8.2 mg/dL (8.5-10.1); CHLORIDE 106 mmol/L (98-107); CREATININE 0.88 mg/dL (0.55-1.02)
[2018-04-09] MEDS ORDERED: ASPIRIN 81 MG TABLET CHEW ONE (14:39)
[2018-04-09] MEDS ORDERED: SODIUM CHLORIDE 0.9% 1,000 ML IV ONE (15:08)
[2018-04-09] MEDS ORDERED: SODIUM CHLORIDE FLUSH 10ML SYR IVF ONE (15:30)
[2018-04-09] MEDS ORDERED: SODIUM CHLORIDE 0.9% 1,000ML IVBOLUS ONE (15:30)
[2018-04-09] MEDS ORDERED: DULO60CA7 PO (15:41)
[2018-04-09] MEDS ORDERED: DULO30CA2 PO (15:41)
[2018-04-09] MEDS ORDERED: GABA600T2 PO (15:41)
[2018-04-09] MEDS ORDERED: BISACODYL 10 MG SUPP PR PRN (16:00)
[2018-04-09] MEDS ORDERED: DEXTROSE 4 GM TAB.CHEW PO PRN (16:00)
[2018-04-09] MEDS ORDERED: GLUCAGON 1 MG IM PRN (16:00)
[2018-04-09] MEDS ORDERED: POLYETHYLENE GLYCOL 17 GM PACKET PO PRN (16:00)
[2018-04-09] MEDS ORDERED: ENALAPRILAT 1.25 MG/ML, 2ML IV PRN (16:00)
[2018-04-09] MEDS ORDERED: ONDANSETRON 2MG/ML, 2ML IVPush PRN (16:00)
[2018-04-09] MEDS ORDERED: DOCUSATE 100 MG CAPSULE PO PRN (16:00)
[2018-04-09] MEDS ORDERED: DEXTROSE 50%, 50ML SYRINGE IVPush PRN (16:00)
[2018-04-09 16:56] LABS: HEMOGLOBIN A1C 9.4 % (4.2-6.3)
[2018-04-09 17:23] VITALS: BP 124/76
[2018-04-09] MEDS: INSULIN LISPRO 100 UNITS/ML, PEN SQ-INSULIN SCH ×2 (17:43→22:13)
[2018-04-09] MEDS: ACETAMINOPHEN 325 MG TABLET PO PRN (18:20)
[2018-04-09] MEDS: LACTOBACILLUS CHEW TABLET PO SCH ×2 (18:20→21:29)
[2018-04-09] MEDS: LIDODERM 5% PATCH TD SCH (18:20)
[2018-04-09 19:07] VITALS: BP 126/83
[2018-04-09] MEDS ORDERED: ATORVASTATIN 40 MG TABLET PO SCH (21:00)
[2018-04-09] MEDS ORDERED: INSULIN GLARGINE 100 UNITS/ML, PEN SQ-INSULIN SCH (21:00)
[2018-04-09] MEDS: LORazepam 0.5MG TABLET PO SCH (21:28)
[2018-04-09] MEDS: GABAPENTIN 300 MG CAPSULE PO SCH (21:28)
[2018-04-09] MEDS: SODIUM CHLORIDE FLUSH 10ML SYR IVF SCH (21:29)
[2018-04-09] MEDS ORDERED: QUET50TA5 PO (22:40)
[2018-04-09] MEDS ORDERED: OMNIPAQUE 350 MG/ML, 100ML BOTTLE ONE (23:52)
[2018-04-10] MEDS: NICOTINE 14MG/24 HR PATCH.TD24 TD SCH (00:30)
[2018-04-10] MEDS: HEPARIN 5,000 UNITS/ML, 1ML SQ SCH ×2 (00:31→12:42)
[2018-04-10] MEDS: QUETIAPINE 25MG TABLET PO SCH ×2 (00:31→20:49)
[2018-04-10 01:21] VITALS: BP 149/86
[2018-04-10 07:09] VITALS: BP 121/76
[2018-04-10] MEDS ORDERED: D5%-0.45% NACL 1,000 ML IV SCH (07:30)
[2018-04-10] MEDS ORDERED: DULOXETINE 30 MG CAPSULE.DR PO SCH (09:00)
[2018-04-10] MEDS ORDERED: ASPIRIN 81 MG TABLET CHEW PO SCH (09:00)
[2018-04-10] MEDS ORDERED: ASPIRIN 81 MG TABLET CHEW PO/NG SCH (09:00)
[2018-04-10 09:46] LABS: CHOL/HDL RATIO 4.1; LDL/HDL RATIO 1.9 (0.5-3.0)
[2018-04-10] MEDS: LORazepam 0.5MG TABLET PO SCH ×2 (10:10→20:49)
[2018-04-10] MEDS: LISINOPRIL 5 MG TABLET PO SCH (10:10)
[2018-04-10] MEDS: INSULIN LISPRO 100 UNITS/ML, PEN SQ-INSULIN SCH ×4 (10:10→20:52)
[2018-04-10] MEDS: LACTOBACILLUS CHEW TABLET PO SCH ×3 (10:12→20:49)
[2018-04-10] MEDS: GABAPENTIN 300 MG CAPSULE PO SCH ×2 (10:12→20:49)
[2018-04-10] MEDS: OMEPRAZOLE 20 MG CAPSULE.DR PO SCH (10:12)
[2018-04-10] MEDS: SODIUM CHLORIDE FLUSH 10ML SYR IVF SCH ×2 (10:14→20:50)
[2018-04-10 12:35] VITALS: BP 125/67
[2018-04-10] MEDS: CYCLOBENZAPRINE 10 MG TABLET PO PRN (12:42)
[2018-04-10] MEDS: ACETAMINOPHEN 325 MG TABLET PO PRN (17:56)
[2018-04-10] MEDS: LIDODERM 5% PATCH TD SCH (17:59)
[2018-04-10 18:51] VITALS: BP 118/75
[2018-04-10] MEDS: INSULIN GLARGINE 100 UNITS/ML, PEN SQ-INSULIN SCH (20:51)
[2018-04-10] MEDS ORDERED: ATORVASTATIN 80 MG TABLET PO SCH (21:00)
[2018-04-10] MEDS ORDERED: DULOXETINE 30 MG CAPSULE.DR PO ONE (21:00)
[2018-04-11 01:14] VITALS: BP 108/71
[2018-04-11] MEDS: HEPARIN 5,000 UNITS/ML, 1ML SQ SCH ×2 (01:52→12:27)
[2018-04-11] MEDS: NICOTINE 14MG/24 HR PATCH.TD24 TD SCH ×2 (01:53→09:07)
[2018-04-11] MEDS: ACETAMINOPHEN 325 MG TABLET PO PRN ×2 (02:02→13:55)
[2018-04-11 07:25] VITALS: BP 136/83
[2018-04-11] MEDS ORDERED: CLOPIDOGREL 75 MG TABLET PO SCH (09:00)
[2018-04-11] MEDS: SODIUM CHLORIDE FLUSH 10ML SYR IVF SCH (09:00)
[2018-04-11] MEDS: INSULIN LISPRO 100 UNITS/ML, PEN SQ-INSULIN SCH ×3 (09:01→16:18)
[2018-04-11] MEDS: INSULIN GLARGINE 100 UNITS/ML, PEN SQ-INSULIN SCH (09:02)
[2018-04-11] MEDS: GABAPENTIN 300 MG CAPSULE PO SCH (09:08)
[2018-04-11] MEDS: LISINOPRIL 5 MG TABLET PO SCH (09:08)
[2018-04-11] MEDS: LORazepam 0.5MG TABLET PO SCH (09:08)
[2018-04-11] MEDS: OMEPRAZOLE 20 MG CAPSULE.DR PO SCH (09:09)
[2018-04-11] MEDS: LACTOBACILLUS CHEW TABLET PO SCH ×2 (09:09→16:00)
[2018-04-11] MEDS: CYCLOBENZAPRINE 10 MG TABLET PO PRN (09:16)
[2018-04-11 13:20] VITALS: BP 123/79
[2018-04-11] MEDS ORDERED: QUET25TA PO (13:56)
[2018-04-11] MEDS ORDERED: DULO30CA2 PO (13:56)
[2018-04-11] MEDS ORDERED: OMEP-110 PO (13:56)
[2018-04-11] MEDS ORDERED: CLOP75TA PO (13:56)
[2018-04-11] MEDS ORDERED: SIMV40TA PO (13:56)
[2018-04-11] MEDS ORDERED: DIPHENHYDRAMINE 50 MG/ML, 1ML ONE (14:14)
[2018-04-11] MEDS ORDERED: KETOROLAC 30 MG/1 ML ONE (14:14)
[2018-04-11] MEDS ORDERED: DIPHENHYDRAMINE 50 MG/ML, 1ML IVPush ONE (14:30)
[2018-04-11] MEDS ORDERED: KETOROLAC 30 MG/1 ML IVPush ONE (14:30)
[2018-04-11] MEDS ORDERED: BUTALB/APAP/CAFFEINE 50MG/325MG/40MG ONE (16:05)
[2018-04-11] MEDS ORDERED: BUTALB/APAP/CAFFEINE 50MG/325MG/40MG PO ONE (16:30)
[2018-04-11] MEDS ORDERED: DULOXETINE 30 MG CAPSULE.DR PO SCH (21:00)
== END 2018-04-11 17:16 | DRG 65 ==
LOC: ED 13:42 → EDIP 15:08 → 4WST 17:05
PROVIDERS: ADMIT Hospitalist; ATTEND Hospitalist
DX: I63.412 Cerebral infarction due to embolism of left middle cerebral artery (principal); E44.0 Moderate protein-calorie malnutrition; E87.2 Acidosis; G81.91 Hemiplegia, unspecified affecting right dominant side; E10.311 Type 1 diabetes mellitus with unspecified diabetic retinopathy with macular edema; E10.40 Type 1 diabetes mellitus with diabetic neuropathy, unspecified; F17.200 Nicotine dependence, unspecified, uncomplicated; F41.1 Generalized anxiety disorder; F43.10 Post-traumatic stress disorder, unspecified; G89.29 Other chronic pain; I10 Essential (primary) hypertension; J45.909 Unspecified asthma, uncomplicated; F32.9 Major depressive disorder, single episode, unspecified; R29.810 Facial weakness; R27.0 Ataxia, unspecified; Z80.1 Family history of malignant neoplasm of trachea, bronchus and lung; Z68.25 Body mass index [BMI] 25.0-25.9, adult; Z80.0 Family history of malignant neoplasm of digestive organs; Z87.19 Personal history of other diseases of the digestive system
CPT/HCPCS: 36415; 70450; 70496; 70498; 70551; 80048; 80061; 82040; 82962; 83036; 83605; 85025; 93005; 93306; 93880; 96360; G0378; J1644; J1885; J2405; Q9967; J1200; J1815; J7030

== ENCOUNTER 2018-04-11 22:26 | Inpatient (IN) | payer MEDICAID ==
[~2018-04-11] VITALS: Ht 157.5 cm; Wt 57.0 kg
[~2018-04-11 22:26] MED LIST changes: +CLOP75TA PO; +DULO30CA2 PO; +DULO60CA7 PO; +GABA600T2 PO; +QUET25TA PO; +QUET50TA5 PO; +SIMV40TA PO
[2018-04-11 23:12] LABS: BASOPHILS # (AUTO) 0.03 x10^3/uL (0-0.1); BASOPHILS % (AUTO) 0 % (0-1); EOSINOPHILS # (AUTO) 0.66 x10^3/uL (0-0.4); EOSINOPHILS % (AUTO) 7 % (1-7); LYMPHOCYTES # (AUTO) 2.16 x10^3/uL (1-3.4); LYMPHOCYTES % (AUTO) 22 % (22-44); MD NO; MEAN CORPUSCULAR HEMOGLOBIN 31.6 pg (27.0-34.8); MEAN CORPUSCULAR HGB CONC 33.9 g/dL (32.4-35.8); MEAN CORPUSCULAR VOLUME 93.3 fL (80-100); MEAN PLATELET VOLUME 9.1 fL (7.4-10.4); MONOCYTES # (AUTO) 0.51 x10^3/uL (0.2-0.8); MONOCYTES % (AUTO) 5 % (2-9); NEUTROPHILS # (AUTO) 6.54 x10^3/uL (1.8-6.8); NEUTROPHILS % (AUTO) 66 % (42-75); PLATELET COUNT 295 x10^3/uL (130-400); RED BLOOD COUNT 3.85 x10^6/uL (3.82-5.3); RED CELL DISTRIBUTION WIDTH 14.2 % (9.6-15.2)
[2018-04-11 23:14] LABS: ALANINE AMINOTRANSFERASE 23 U/L (12-78); ALBUMIN 2.9 g/dL (3.4-5.0); ANION GAP 10 mmol/L (5-15); CALCIUM 8.5 mg/dL (8.5-10.1); CHLORIDE 99 mmol/L (98-107); CREATININE 1.47 mg/dL (0.55-1.02)
[2018-04-11 23:16] LABS: ALKALINE PHOSPHATASE 62 U/L (45-117); BILIRUBIN,TOTAL 0.3 mg/dL (0.2-1.0)
[2018-04-11] MEDS ORDERED: SODIUM CHLORIDE FLUSH 10ML SYR IVF ONE (23:30)
[2018-04-11] MEDS ORDERED: INSULIN REGULAR 100 UNITS/ML, 3ML VIAL SQ-INSULIN ONE (23:30)
[2018-04-11 23:48] LABS: ACETONE, SERUM Moderate(40mg/dL) mg/dL (Negative)
[2018-04-12] MEDS ORDERED: SODIUM CHLORIDE 0.9% 1,000 ML IV SCH (00:14)
[2018-04-12] MEDS ORDERED: BISACODYL 10 MG SUPP PR PRN (00:30)
[2018-04-12] MEDS ORDERED: ONDANSETRON ODT 4 MG PO PRN (00:30)
[2018-04-12] MEDS ORDERED: POLYETHYLENE GLYCOL 17 GM PACKET PO PRN (00:30)
[2018-04-12] MEDS ORDERED: INSULIN LISPRO 100 UNITS/ML, PEN SQ-INSULIN SCH (00:30)
[2018-04-12] MEDS: QUETIAPINE 25MG TABLET PO SCH ×2 (01:59→20:02)
[2018-04-12] MEDS: GABAPENTIN 300 MG CAPSULE PO SCH ×4 (01:59→20:02)
[2018-04-12 02:00] VITALS: BP 155/89
[2018-04-12] MEDS: SODIUM CHLORIDE 0.9% 1,000ML IVBOLUS ONE ×2 (02:00→02:01)
[2018-04-12] MEDS: HEPARIN 5,000 UNITS/ML, 1ML SQ SCH ×4 (02:04→23:14)
[2018-04-12] MEDS: INSULIN LISPRO 100 UNITS/ML, PEN SQ-INSULIN SCH ×5 (02:37→21:00)
[2018-04-12 04:45] LABS: BASOPHILS # (AUTO) 0.04 x10^3/uL (0-0.1); BASOPHILS % (AUTO) 1 % (0-1); EOSINOPHILS # (AUTO) 0.84 x10^3/uL (0-0.4); EOSINOPHILS % (AUTO) 9 % (1-7); LYMPHOCYTES # (AUTO) 2.41 x10^3/uL (1-3.4); LYMPHOCYTES % (AUTO) 25 % (22-44); MD NO; MEAN CORPUSCULAR HEMOGLOBIN 32.1 pg (27.0-34.8); MEAN CORPUSCULAR HGB CONC 34.8 g/dL (32.4-35.8); MEAN PLATELET VOLUME 8.4 fL (7.4-10.4); MONOCYTES # (AUTO) 0.54 x10^3/uL (0.2-0.8); MONOCYTES % (AUTO) 6 % (2-9); NEUTROPHILS # (AUTO) 5.67 x10^3/uL (1.8-6.8); NEUTROPHILS % (AUTO) 60 % (42-75); PLATELET COUNT 273 x10^3/uL (130-400); RED BLOOD COUNT 3.52 x10^6/uL (3.82-5.3); RED CELL DISTRIBUTION WIDTH 13.7 % (9.6-15.2)
[2018-04-12 04:52] LABS: ALANINE AMINOTRANSFERASE 19 U/L (12-78); ALBUMIN 2.5 g/dL (3.4-5.0); ANION GAP 8 mmol/L (5-15); CALCIUM 8.3 mg/dL (8.5-10.1); CHLORIDE 110 mmol/L (98-107); CREATININE 1.06 mg/dL (0.55-1.02)
[2018-04-12 04:54] LABS: ALKALINE PHOSPHATASE 52 U/L (45-117); BILIRUBIN,TOTAL 0.1 mg/dL (0.2-1.0); TOTAL PROTEIN 5.2 g/dL (6.4-8.2)
[2018-04-12 07:50] VITALS: BP 116/73
[2018-04-12] MEDS ORDERED: INSULIN GLARGINE 100 UNITS/ML, PEN SQ-INSULIN SCH ×4 (09:00→21:00)
[2018-04-12] MEDS ORDERED: LISINOPRIL 5 MG TABLET PO SCH (09:00)
[2018-04-12] MEDS: CLOPIDOGREL 75 MG TABLET PO SCH (09:30)
[2018-04-12] MEDS: OMEPRAZOLE 20 MG CAPSULE.DR PO SCH (09:30)
[2018-04-12] MEDS: SENNA/DOCUSATE TABLET PO SCH (09:30)
[2018-04-12] MEDS ORDERED: NICOTINE 14MG/24 HR PATCH.TD24 ONE (09:33)
[2018-04-12] MEDS: NICOTINE 14MG/24 HR PATCH.TD24 TD SCH (09:35)
[2018-04-12] MEDS ORDERED: DULOXETINE 30 MG CAPSULE.DR PO SCH (10:00)
[2018-04-12] MEDS ORDERED: NS + 20MEQ KCL 1,000 ML IV SCH (13:00)
[2018-04-12 14:00] VITALS: BP 151/83
[2018-04-12] MEDS: ACETAMINOPHEN 325 MG TABLET PO PRN (14:24)
[2018-04-12] MEDS: CYCLOBENZAPRINE 10 MG TABLET PO PRN ×2 (14:24→20:02)
[2018-04-12] MEDS: LORazepam 0.5MG TABLET PO PRN ×2 (14:24→20:03)
[2018-04-12] MEDS ORDERED: LIDODERM 5% PATCH TD ONE (15:24)
[2018-04-12] MEDS ORDERED: INSULIN REGULAR 100 UNITS/ML, 3ML VIAL IVPush ONE (15:30)
[2018-04-12] MEDS ORDERED: SODIUM CHLORIDE 0.9% 1,000ML IVBOLUS ONE (15:30)
[2018-04-12] MEDS: LIDODERM 5% PATCH TD SCH (15:31)
[2018-04-12 15:33] LABS: ACETONE, SERUM Small (20mg/dL) mg/dL (Negative)
[2018-04-12 15:35] LABS: ANION GAP 11 mmol/L (5-15); CALCIUM 8.2 mg/dL (8.5-10.1); CHLORIDE 102 mmol/L (98-107); CREATININE 1.16 mg/dL (0.55-1.02)
[2018-04-12] MEDS ORDERED: SODIUM BICARB 8.4%, 50ML SYRINGE IVPush ONE (16:00)
[2018-04-12] MEDS ORDERED: CALCIUM CHLORIDE 10%, 10ML SYR IVPush ONE (16:00)
[2018-04-12] MEDS ORDERED: FUROSEMIDE 40 MG/4 ML IVPush ONE (16:00)
[2018-04-12] MEDS: INSULIN GLARGINE 100 UNITS/ML, PEN SQ-INSULIN SCH ×2 (18:16→20:32)
[2018-04-12] MEDS: SIMVASTATIN 40 MG TABLET PO SCH (20:03)
[2018-04-12 21:28] VITALS: BP 130/73
[2018-04-12] MEDS ORDERED: DEXTROSE 50%, 50ML SYRINGE ONE (23:33)
[2018-04-13] MEDS ORDERED: GLUCAGON 1 MG IM PRN
[2018-04-13] MEDS ORDERED: DEXTROSE 50%, 50ML SYRINGE IVPush PRN
[2018-04-13] MEDS ORDERED: DEXTROSE 4 GM TAB.CHEW PO PRN
[2018-04-13] MEDS ORDERED: SODIUM CHLORIDE 0.9% 1,000 ML IV SCH (00:14)
[2018-04-13 03:55] VITALS: BP 96/61
[2018-04-13 04:08] VITALS: BP 96/61
[2018-04-13 07:36] LABS: BASOPHILS # (AUTO) 0.05 x10^3/uL (0-0.1); BASOPHILS % (AUTO) 1 % (0-1); EOSINOPHILS # (AUTO) 0.75 x10^3/uL (0-0.4); EOSINOPHILS % (AUTO) 11 % (1-7); LYMPHOCYTES # (AUTO) 1.98 x10^3/uL (1-3.4); LYMPHOCYTES % (AUTO) 29 % (22-44); MD NO; MEAN CORPUSCULAR HEMOGLOBIN 30.7 pg (27.0-34.8); MEAN CORPUSCULAR HGB CONC 33.1 g/dL (32.4-35.8); MEAN CORPUSCULAR VOLUME 92.8 fL (80-100); MEAN PLATELET VOLUME 8.4 fL (7.4-10.4); MONOCYTES # (AUTO) 0.53 x10^3/uL (0.2-0.8); MONOCYTES % (AUTO) 8 % (2-9); NEUTROPHILS # (AUTO) 3.52 x10^3/uL (1.8-6.8); NEUTROPHILS % (AUTO) 52 % (42-75); PLATELET COUNT 288 x10^3/uL (130-400); RED BLOOD COUNT 3.82 x10^6/uL (3.82-5.3); RED CELL DISTRIBUTION WIDTH 14.2 % (9.6-15.2)
[2018-04-13 07:43] VITALS: BP 120/79
[2018-04-13 07:46] LABS: ANION GAP 5 mmol/L (5-15); CALCIUM 8.8 mg/dL (8.5-10.1); CHLORIDE 103 mmol/L (98-107); CREATININE 1.04 mg/dL (0.55-1.02)
[2018-04-13] MEDS: INSULIN LISPRO 100 UNITS/ML, PEN SQ-INSULIN SCH ×5 (08:31→21:20)
[2018-04-13] MEDS: INSULIN GLARGINE 100 UNITS/ML, PEN SQ-INSULIN SCH ×2 (08:32→21:20)
[2018-04-13] MEDS: OMEPRAZOLE 20 MG CAPSULE.DR PO SCH (09:58)
[2018-04-13] MEDS: GABAPENTIN 300 MG CAPSULE PO SCH ×3 (09:58→21:19)
[2018-04-13] MEDS: LORazepam 0.5MG TABLET PO PRN ×2 (09:59→22:39)
[2018-04-13] MEDS: SENNA/DOCUSATE TABLET PO SCH (09:59)
[2018-04-13] MEDS: SODIUM CHLORIDE FLUSH 10ML SYR IVF SCH ×2 (09:59→21:00)
[2018-04-13] MEDS: NICOTINE 14MG/24 HR PATCH.TD24 TD SCH (09:59)
[2018-04-13] MEDS: HEPARIN 5,000 UNITS/ML, 1ML SQ SCH ×2 (09:59→17:03)
[2018-04-13] MEDS: CLOPIDOGREL 75 MG TABLET PO SCH (10:00)
[2018-04-13] MEDS ORDERED: MAGNESIUM SULFATE PMX 2GM/50ML 50 ML IV ONE (10:00)
[2018-04-13] MEDS ORDERED: NS + 20MEQ KCL 1,000 ML IV SCH (13:00)
[2018-04-13 13:55] VITALS: BP 114/76
[2018-04-13] MEDS: ACETAMINOPHEN 325 MG TABLET PO PRN (14:11)
[2018-04-13] MEDS: LIDODERM 5% PATCH TD SCH (17:02)
[2018-04-13 19:05] VITALS: BP 116/73
[2018-04-13] MEDS: DULOXETINE 30 MG CAPSULE.DR PO SCH (21:18)
[2018-04-13] MEDS: QUETIAPINE 25MG TABLET PO SCH (21:19)
[2018-04-13] MEDS: SIMVASTATIN 40 MG TABLET PO SCH (21:19)
[2018-04-14] MEDS: HEPARIN 5,000 UNITS/ML, 1ML SQ SCH ×3 (00:30→16:30)
[2018-04-14] MEDS: ACETAMINOPHEN 325 MG TABLET PO PRN ×3 (00:35→21:39)
[2018-04-14 02:05] VITALS: BP 130/84
[2018-04-14 07:14] VITALS: BP 115/61
[2018-04-14] MEDS: SENNA/DOCUSATE TABLET PO SCH (09:00)
[2018-04-14] MEDS: SODIUM CHLORIDE FLUSH 10ML SYR IVF SCH ×2 (09:00→21:36)
[2018-04-14] MEDS: INSULIN LISPRO 100 UNITS/ML, PEN SQ-INSULIN SCH ×7 (09:14→21:35)
[2018-04-14] MEDS: INSULIN GLARGINE 100 UNITS/ML, PEN SQ-INSULIN SCH ×2 (09:15→21:34)
[2018-04-14] MEDS: OMEPRAZOLE 20 MG CAPSULE.DR PO SCH (09:16)
[2018-04-14] MEDS: CLOPIDOGREL 75 MG TABLET PO SCH (09:16)
[2018-04-14] MEDS: GABAPENTIN 300 MG CAPSULE PO SCH ×3 (09:16→21:39)
[2018-04-14] MEDS: NICOTINE 14MG/24 HR PATCH.TD24 TD SCH (09:18)
[2018-04-14] MEDS: LORazepam 0.5MG TABLET PO PRN ×2 (09:32→21:38)
[2018-04-14] MEDS ORDERED: TRAM50TA2 PO (11:51)
[2018-04-14] MEDS ORDERED: INSU100I28 SQ-INSULIN (11:51)
[2018-04-14 12:22] VITALS: BP 124/87
[2018-04-14] MEDS: LIDODERM 5% PATCH TD SCH (17:06)
[2018-04-14 19:08] VITALS: BP 114/71
[2018-04-14] MEDS: DULOXETINE 30 MG CAPSULE.DR PO SCH (21:37)
[2018-04-14] MEDS: QUETIAPINE 25MG TABLET PO SCH (21:38)
[2018-04-14] MEDS: SIMVASTATIN 40 MG TABLET PO SCH (21:39)
[2018-04-15 00:45] VITALS: BP 127/81
[2018-04-15] MEDS: ACETAMINOPHEN 325 MG TABLET PO PRN ×4 (01:40→21:14)
[2018-04-15 07:56] VITALS: BP 102/65
[2018-04-15] MEDS: INSULIN GLARGINE 100 UNITS/ML, PEN SQ-INSULIN SCH ×2 (08:24→21:02)
[2018-04-15] MEDS: INSULIN LISPRO 100 UNITS/ML, PEN SQ-INSULIN SCH ×7 (08:24→20:41)
[2018-04-15] MEDS: SODIUM CHLORIDE FLUSH 10ML SYR IVF SCH ×2 (08:27→21:05)
[2018-04-15] MEDS: HEPARIN 5,000 UNITS/ML, 1ML SQ SCH ×3 (08:28→16:00)
[2018-04-15] MEDS: OMEPRAZOLE 20 MG CAPSULE.DR PO SCH (12:14)
[2018-04-15] MEDS: GABAPENTIN 300 MG CAPSULE PO SCH ×3 (12:15→21:03)
[2018-04-15] MEDS: CLOPIDOGREL 75 MG TABLET PO SCH (12:15)
[2018-04-15] MEDS: NICOTINE 14MG/24 HR PATCH.TD24 TD SCH (12:16)
[2018-04-15] MEDS: SENNA/DOCUSATE TABLET PO SCH (12:16)
[2018-04-15] MEDS: LORazepam 0.5MG TABLET PO PRN ×2 (12:31→21:14)
[2018-04-15 15:19] VITALS: BP 141/83
[2018-04-15] MEDS: LIDODERM 5% PATCH TD SCH (16:21)
[2018-04-15 19:00] VITALS: BP 136/83
[2018-04-15] MEDS: QUETIAPINE 25MG TABLET PO SCH (21:03)
[2018-04-15] MEDS: SIMVASTATIN 40 MG TABLET PO SCH (21:03)
[2018-04-15] MEDS: DULOXETINE 30 MG CAPSULE.DR PO SCH (21:04)
[2018-04-16 00:39] VITALS: BP 117/79
[2018-04-16] MEDS: ACETAMINOPHEN 325 MG TABLET PO PRN ×3 (02:00→13:24)
[2018-04-16 07:12] VITALS: BP 113/69
[2018-04-16] MEDS: HEPARIN 5,000 UNITS/ML, 1ML SQ SCH ×3 (08:00→15:50)
[2018-04-16] MEDS: INSULIN GLARGINE 100 UNITS/ML, PEN SQ-INSULIN SCH (08:54)
[2018-04-16] MEDS: INSULIN LISPRO 100 UNITS/ML, PEN SQ-INSULIN SCH ×6 (08:54→16:00)
[2018-04-16] MEDS: OMEPRAZOLE 20 MG CAPSULE.DR PO SCH (08:55)
[2018-04-16] MEDS: SENNA/DOCUSATE TABLET PO SCH (08:55)
[2018-04-16] MEDS: GABAPENTIN 300 MG CAPSULE PO SCH ×2 (08:55→15:50)
[2018-04-16] MEDS: SODIUM CHLORIDE FLUSH 10ML SYR IVF SCH (08:56)
[2018-04-16] MEDS: CLOPIDOGREL 75 MG TABLET PO SCH (08:56)
[2018-04-16] MEDS: LORazepam 0.5MG TABLET PO PRN (09:15)
[2018-04-16] MEDS: NICOTINE 14MG/24 HR PATCH.TD24 TD SCH (12:01)
[2018-04-16 13:21] VITALS: BP 124/84
[2018-04-16 13:28] VITALS: BP 121/82
[2018-04-16] MEDS: LIDODERM 5% PATCH TD SCH (15:51)
== END 2018-04-16 16:10 | DRG 683 ==
LOC: ED 22:38 → EDIP 23:48 → 4WST 04-12 01:01
PROVIDERS: ADMIT Hospitalist; ATTEND Hospitalist
DX: N17.9 Acute kidney failure, unspecified (principal); E44.0 Moderate protein-calorie malnutrition; E87.1 Hypo-osmolality and hyponatremia; F13.20 Sedative, hypnotic or anxiolytic dependence, uncomplicated; E11.65 Type 2 diabetes mellitus with hyperglycemia; E11.311 Type 2 diabetes mellitus with unspecified diabetic retinopathy with macular edema; D50.9 Iron deficiency anemia, unspecified; E11.42 Type 2 diabetes mellitus with diabetic polyneuropathy; F41.1 Generalized anxiety disorder; G89.4 Chronic pain syndrome; E86.1 Hypovolemia; E86.0 Dehydration; E87.6 Hypokalemia; E11.649 Type 2 diabetes mellitus with hypoglycemia without coma; E87.5 Hyperkalemia; F17.210 Nicotine dependence, cigarettes, uncomplicated; F43.10 Post-traumatic stress disorder, unspecified; Z79.4 Long term (current) use of insulin; J45.909 Unspecified asthma, uncomplicated; Z80.0 Family history of malignant neoplasm of digestive organs; Z86.73 Personal history of transient ischemic attack (TIA), and cerebral infarction without residual deficits; Z87.19 Personal history of other diseases of the digestive system; Z90.49 Acquired absence of other specified parts of digestive tract; Z68.23 Body mass index [BMI] 23.0-23.9, adult
CPT/HCPCS: 36415; 80048; 80053; 82010; 82947; 82962; 83735; 83930; 84100; 85025; 93005; 96372; 99285; G0378; J1815; J1940; J3480; J3475; J7030

== ENCOUNTER 2018-06-10 13:23 | Inpatient (IN) | payer MEDICAID ==
[~2018-06-10] VITALS: Ht 157.5 cm; Wt 51.3 kg
[2018-06-10] MEDS ORDERED: ONDANSETRON 2MG/ML, 2ML IVPush ONE (13:30)
[2018-06-10] MEDS ORDERED: SODIUM CHLORIDE 0.9% 1,000ML IVBOLUS ONE (13:30)
[2018-06-10] MEDS ORDERED: KETOROLAC 30 MG/1 ML ONE (13:40)
[2018-06-10] MEDS ORDERED: ONDANSETRON 2MG/ML, 2ML ONE (13:40)
[2018-06-10] MEDS ORDERED: ACID1TAB7 PO (14:00)
[2018-06-10] MEDS ORDERED: KETOROLAC 30 MG/1 ML IVPush ONE (14:00)
[2018-06-10] MEDS ORDERED: FERR-46 PO (14:01)
[2018-06-10] MEDS ORDERED: PANT40TA5 PO (14:02)
[2018-06-10] MEDS ORDERED: ONDA4TAB13 SL (14:03)
[2018-06-10] MEDS ORDERED: LORA0.5T PO (14:04)
[2018-06-10] MEDS ORDERED: LISI5TAB7 PO (14:05)
[2018-06-10 14:09] LABS: ACETONE, SERUM Large (80mg/dL) mg/dL (Negative); ALANINE AMINOTRANSFERASE 32 U/L (12-78); ALBUMIN 3.6 g/dL (3.4-5.0); ANION GAP 15 mmol/L (5-15); CALCIUM 9.6 mg/dL (8.5-10.1); CHLORIDE 104 mmol/L (98-107); CREATININE 1.62 mg/dL (0.55-1.02)
[2018-06-10] MEDS ORDERED: INSU100I28 SQ (14:09)
[2018-06-10] MEDS ORDERED: INSU100I28 SQ-INSULIN (14:10)
[2018-06-10 14:11] LABS: ALKALINE PHOSPHATASE 97 U/L (45-117); BILIRUBIN,TOTAL 0.4 mg/dL (0.2-1.0); TOTAL PROTEIN 7.8 g/dL (6.4-8.2)
[2018-06-10 14:13] LABS: BASOPHILS # (AUTO) 0.07 x10^3/uL (0-0.1); BASOPHILS % (AUTO) 1 % (0-1); EOSINOPHILS # (AUTO) 0.25 x10^3/uL (0-0.4); EOSINOPHILS % (AUTO) 3 % (1-7); LYMPHOCYTES # (AUTO) 1.95 x10^3/uL (1-3.4); LYMPHOCYTES % (AUTO) 22 % (22-44); MD NO; MEAN CORPUSCULAR HEMOGLOBIN 30.8 pg (27.0-34.8); MEAN CORPUSCULAR HGB CONC 32.5 g/dL (32.4-35.8); MEAN CORPUSCULAR VOLUME 94.6 fL (80-100); MEAN PLATELET VOLUME 8.1 fL (7.4-10.4); MONOCYTES # (AUTO) 0.37 x10^3/uL (0.2-0.8); MONOCYTES % (AUTO) 4 % (2-9); NEUTROPHILS # (AUTO) 6.15 x10^3/uL (1.8-6.8); NEUTROPHILS % (AUTO) 70 % (42-75); PLATELET COUNT 575 x10^3/uL (130-400); RED BLOOD COUNT 4.92 x10^6/uL (3.82-5.3); RED CELL DISTRIBUTION WIDTH 13.7 % (9.6-15.2)
[2018-06-10] MEDS ORDERED: REGULAR INSULIN 62.5 UNITS in SODIUM CHLORIDE 0.9% 249.375 ML IV PRN ×2 (14:50→15:30)
[2018-06-10] MEDS ORDERED: SODIUM CHLORIDE 0.9% 1,000 ML IV SCH (15:09)
[2018-06-10] MEDS ORDERED: ONDANSETRON 2MG/ML, 2ML IVPush PRN (15:30)
[2018-06-10] MEDS ORDERED: D5%-0.45% NACL 1,000 ML IV SCH (15:30)
[2018-06-10] MEDS ORDERED: DOCUSATE 100 MG CAPSULE PO PRN (15:30)
[2018-06-10] MEDS ORDERED: LACTATED RINGERS 1,000 ML IVBOLUS ONE (15:30)
[2018-06-10] MEDS ORDERED: ACETAMINOPHEN 325 MG TABLET PO PRN (15:30)
[2018-06-10] MEDS ORDERED: LORazepam 0.5MG TABLET PO PRN (15:30)
[2018-06-10] MEDS: FERROUS SULFATE 325 MG TABLET PO SCH ×2 (16:00→20:50)
--- NOTE | 2018-06-10 16:27 | NUR ---
SECOND PIV OBTAINED VIA US. REQUESTING INSULIN GTT FROM PHARMACY
--- NOTE | 2018-06-10 16:30 | NUR ---
PHARMACY REQUEST SENT TO PHARMACY FOR INSULIN DRIP.
--- NOTE | 2018-06-10 16:58 | NUR ---
ATTEMPTED TO CALL REPORT
[2018-06-10] MEDS: HEPARIN 5,000 UNITS/ML, 1ML SQ SCH (17:30)
[2018-06-10 17:47] LABS: ANION GAP 18 mmol/L (5-15); CALCIUM 8.2 mg/dL (8.5-10.1); CHLORIDE 108 mmol/L (98-107); CREATININE 1.32 mg/dL (0.55-1.02)
[2018-06-10] MEDS: GABAPENTIN 300 MG CAPSULE PO SCH ×2 (18:28→20:50)
[2018-06-10 19:12] LABS: HEMOGLOBIN A1C 8.6 % (4.2-6.3)
[2018-06-10] MEDS ORDERED: QUETIAPINE 25MG TABLET PO SCH (21:00)
[2018-06-10] MEDS ORDERED: DULOXETINE 30 MG CAPSULE.DR PO SCH (21:00)
[2018-06-10 21:55] LABS: ANION GAP 9 mmol/L (5-15); CHLORIDE 117 mmol/L (98-107); CREATININE 1.11 mg/dL (0.55-1.02)
[2018-06-10] MEDS ORDERED: PREDNISONE ACETATE OP (21:59)
[2018-06-10] MEDS ORDERED: KETO5DRO77 OP (21:59)
[2018-06-10] MEDS: KETOROLAC OPHTH 0.5%, 5ML EACHEYE SCH (22:00)
[2018-06-10] MEDS ORDERED: predniSOLONE OPHTH SUSP 1%, 5ML EACHEYE SCH ×2 (22:00→22:07)
[2018-06-10] MEDS: LORazepam 0.5MG TABLET PO PRN ×2 (22:15→22:17)
[2018-06-11] MEDS ORDERED: NICOTINE 21 MG/24 HR PATCH.TD24 TD SCH
[2018-06-11 00:49] LABS: HCG UR SG > 1.030 (1.003-1.030); MICROSCOPIC INDICATED
[2018-06-11 00:55] LABS: CULTURE INDICATED? NO
[2018-06-11 00:58] LABS: AMPHETAMINE SCREEN, URINE Negative (Negative); BARBITURATE SCREEN, URINE Negative (Negative); BENZODIAZEPINE SCREEN, URINE Negative (Negative); CANNABINOID SCREEN, URINE Negative (Negative); COCAINE SCREEN, URINE Negative (Negative); METHADONE SCREEN, URINE Negative (Negative); OPIATE SCREEN, URINE Negative (Negative)
[2018-06-11] MEDS: HEPARIN 5,000 UNITS/ML, 1ML SQ SCH ×2 (01:30→09:13)
[2018-06-11] MEDS: INSULIN LISPRO 100 UNITS/ML, PEN SQ-INSULIN SCH ×4 (01:45→11:50)
[2018-06-11 02:11] LABS: ANION GAP 16 mmol/L (5-15); CALCIUM 7.8 mg/dL (8.5-10.1); CHLORIDE 108 mmol/L (98-107); CREATININE 1.13 mg/dL (0.55-1.02)
[2018-06-11 04:43] LABS: ALBUMIN 2.5 g/dL (3.4-5.0); ANION GAP 10 mmol/L (5-15); CALCIUM 7.8 mg/dL (8.5-10.1); CHLORIDE 111 mmol/L (98-107)
[2018-06-11 04:46] LABS: ALANINE AMINOTRANSFERASE 22 U/L (12-78); ALKALINE PHOSPHATASE 64 U/L (45-117); BILIRUBIN,TOTAL 0.3 mg/dL (0.2-1.0); CREATININE 1.29 mg/dL (0.55-1.02); TOTAL PROTEIN 5.3 g/dL (6.4-8.2)
[2018-06-11 04:57] VITALS: BP 146/89
[2018-06-11] MEDS ORDERED: INSULIN LISPRO 100 UNITS/ML, PEN SQ-INSULIN SCH (07:00)
[2018-06-11] MEDS ORDERED: PANTOPRAZOLE 40 MG IV IVPush SCH (07:30)
[2018-06-11] MEDS ORDERED: INSULIN GLARGINE 100 UNITS/ML, PEN SQ-INSULIN SCH (07:30)
[2018-06-11] MEDS ORDERED: MAGNESIUM SULFATE PMX 2GM/50ML 50 ML IV ONE (07:30)
[2018-06-11] MEDS ORDERED: SODIUM PHOSPHATE 30 MMOL in SODIUM CHLORIDE 0.9% 500 ML IV ONE (07:30)
[2018-06-11] MEDS ORDERED: CLOPIDOGREL 75 MG TABLET PO SCH (09:00)
[2018-06-11] MEDS ORDERED: LACTOBACILLUS CHEW TABLET PO SCH (09:00)
[2018-06-11] MEDS: KETOROLAC OPHTH 0.5%, 5ML EACHEYE SCH (09:00)
[2018-06-11] MEDS: GABAPENTIN 300 MG CAPSULE PO SCH (09:12)
[2018-06-11] MEDS: FERROUS SULFATE 325 MG TABLET PO SCH (09:12)
[2018-06-11] MEDS: LORazepam 0.5MG TABLET PO PRN (09:14)
[2018-06-11] MEDS ORDERED: KETOROLAC 30 MG/1 ML ONE (09:18)
[2018-06-11 10:37] LABS: CHLORIDE 112 mmol/L (98-107)
[2018-06-11 10:48] LABS: ANION GAP 9 mmol/L (5-15); CALCIUM 8.2 mg/dL (8.5-10.1); CREATININE 0.97 mg/dL (0.55-1.02)
[2018-06-11 13:57] LABS: ANION GAP 10 mmol/L (5-15); CALCIUM 8.3 mg/dL (8.5-10.1); CHLORIDE 113 mmol/L (98-107); CREATININE 1.14 mg/dL (0.55-1.02)
== END 2018-06-11 15:40 | disposition home or self-care (01) | DRG 638 ==
LOC: ED 14:29 → EDIP 15:09 → ICU 17:11 → DCLOUNGE 06-11 15:20
PROVIDERS: ADMIT Hospitalist; ATTEND Hospitalist
DX: E10.10 Type 1 diabetes mellitus with ketoacidosis without coma (principal); N17.9 Acute kidney failure, unspecified; E87.1 Hypo-osmolality and hyponatremia; I10 Essential (primary) hypertension; F41.9 Anxiety disorder, unspecified; F17.200 Nicotine dependence, unspecified, uncomplicated; E87.5 Hyperkalemia; E10.649 Type 1 diabetes mellitus with hypoglycemia without coma; Z79.02 Long term (current) use of antithrombotics/antiplatelets; Z86.73 Personal history of transient ischemic attack (TIA), and cerebral infarction without residual deficits; Z79.4 Long term (current) use of insulin; Z79.899 Other long term (current) drug therapy
CPT/HCPCS: 36415; 80048; 80053; 80307; 81001; 81025; 82010; 82800; 82962; 83036; 83735; 84100; 84484; 85025; 87081; 93005; 96361; 96365; 96375; G0378; J1885; J2405; C9113; J1815; J3475; J7030; J7040; J7120

== ENCOUNTER 2018-07-23 16:12 | Inpatient (IN) | payer MEDICAID ==
[~2018-07-23] VITALS: Ht 157.5 cm; Wt 59.9 kg
[~2018-07-23 16:12] MED LIST changes: +FERR-46 PO; -GABA600T2 PO; +GABA600T7 PO; +INSU100I28 SQ; +KETO5DRO77 OP; +LORA0.5T PO; +ONDA4TAB13 SL; +PANT40TA5 PO; +PREDNISONE ACETATE OP; -QUET25TA PO; +QUET25TA7 PO
[2018-07-23] MEDS ORDERED: SODIUM CHLORIDE 0.9% 1,000ML IVBOLUS ONE (16:30)
[2018-07-23 16:55] LABS: O2 FLOW ROOOM AIR L/min
[2018-07-23 16:56] LABS: BASOPHILS # (AUTO) 0.11 x10^3/uL (0-0.1); BASOPHILS % (AUTO) 1 % (0-1); EOSINOPHILS # (AUTO) 0.15 x10^3/uL (0-0.4); EOSINOPHILS % (AUTO) 1 % (1-7); LYMPHOCYTES % (AUTO) 18 % (22-44); MD NO; MEAN CORPUSCULAR HEMOGLOBIN 30.8 pg (27.0-34.8); MEAN CORPUSCULAR HGB CONC 32.9 g/dL (32.4-35.8); MEAN CORPUSCULAR VOLUME 93.8 fL (80-100); MEAN PLATELET VOLUME 8.2 fL (7.4-10.4); MONOCYTES # (AUTO) 0.58 x10^3/uL (0.2-0.8); MONOCYTES % (AUTO) 4 % (2-9); NEUTROPHILS # (AUTO) 10.49 x10^3/uL (1.8-6.8); NEUTROPHILS % (AUTO) 76 % (42-75); PLATELET COUNT 508 x10^3/uL (130-400); RED CELL DISTRIBUTION WIDTH 13.5 % (9.6-15.2)
--- NOTE | 2018-07-23 16:57 | NUR ---
TASK RN: PT PIV PLACED. PT TAKEN TO RESTROOM FOR UA SAMPLE. PT VERY AGGRESSIVE TOWARDS RN.
--- NOTE | 2018-07-23 17:00 | NUR ---
HIGH ACCU CHECK REPORTED TO .
--- NOTE | 2018-07-23 17:05 | NUR ---
pt upright on gurney, responds approp to staff, comfort measures provided, call light within reach.
[2018-07-23 17:07] LABS: ALANINE AMINOTRANSFERASE 40 U/L (12-78); ALBUMIN 3.9 g/dL (3.4-5.0); ANION GAP 26 mmol/L (5-15); CALCIUM 9.4 mg/dL (8.5-10.1); CHLORIDE 89 mmol/L (98-107); CREATININE 1.43 mg/dL (0.55-1.02)
[2018-07-23 17:09] LABS: ALKALINE PHOSPHATASE 121 U/L (45-117); BILIRUBIN,TOTAL 0.7 mg/dL (0.2-1.0); TOTAL PROTEIN 7.5 g/dL (6.4-8.2)
[2018-07-23] MEDS ORDERED: REGULAR INSULIN 62.5 UNITS in SODIUM CHLORIDE 0.9% 249.375 ML IV PRN ×2 (17:29→21:30)
[2018-07-23] MEDS ORDERED: LORazepam 1MG TABLET ONE (17:36)
[2018-07-23 17:39] LABS: ACETONE, SERUM Large (80mg/dL) mg/dL (Negative)
[2018-07-23 18:00] LABS: MICROSCOPIC AUTO
[2018-07-23] MEDS ORDERED: LORazepam 1MG TABLET PO ONE (18:00)
[2018-07-23 18:02] LABS: CULTURE INDICATED? NO
--- NOTE | 2018-07-23 18:02 | NUR ---
pt remains upright on gurney awake & calmer, responds approp to staff, comfort measures provided, call light within reach.
--- NOTE | 2018-07-23 19:11 | NUR ---
report given to Eulalia
--- NOTE | 2018-07-23 19:15 | NUR ---
REPORT FROM ALEXIA BORGES, ASSUME CARE OF PT AT THIS TIME. CALL LIGHT ANSWERED, PT ASSISTED UP TO BSC. IV RETAPED, LINENS CHANGED, GOWN CHANGED, WARM BLANKET AND SLIPPER SOCKS PROVIDED. PT ASSISTED IN REPOSITIONING ON GURNEY. BP CUFF, PULSE OX AND HEART MONITOR REMOVED BY PT-REPLACED AND VS UPDATED IN COMPUTER.
--- NOTE | 2018-07-23 19:19 | NUR ---
Pt to be admitted to CCU, room 549-2. Report called to Shel[place]. ED NOC RN to transfer pt when orders placed by [facility].
--- NOTE | 2018-07-23 19:52 | NUR ---
FS GLUCOSE 570, NO CHANGE IN INSULIN GTT AT THIS TIME. CONTINUE TO AWAIT [facility] ORDERS PRIOR TO TRANSFER TO CCU.
--- NOTE | 2018-07-23 20:54 | NUR ---
PT SLEEPING, AWOKE FOR FS GLUCOSE. FS 409, PER ORDER NO CHANGE IN INSULIN RATE. VSS/UPDATED IN COMPUTER. CONTINUE TO AWAIT [facility] ORDERS PRIOR TO ADMIT TO CCU.
[2018-07-23] MEDS ORDERED: D5%-0.45% NACL 1,000 ML IV PRN (20:55)
--- NOTE | 2018-07-23 20:57 | NUR ---
[facility] IN TO SEE PT.
[2018-07-23] MEDS ORDERED: POLYETHYLENE GLYCOL 17 GM PACKET PO PRN (21:00)
[2018-07-23] MEDS ORDERED: ACETAMINOPHEN 325 MG TABLET PO PRN (21:00)
[2018-07-23] MEDS ORDERED: hydrALAzine 20 MG/ML, 1ML IVPush PRN (21:00)
[2018-07-23] MEDS ORDERED: ONDANSETRON 2MG/ML, 2ML IVPush PRN (21:00)
[2018-07-23] MEDS ORDERED: PROMETHAZINE 25 MG/ML, 1ML IM PRN (21:00)
[2018-07-23] MEDS ORDERED: BISACODYL 10 MG SUPP PR PRN (21:00)
[2018-07-23] MEDS ORDERED: morphine SULFATE 10 MG/ML, 1ML IVPush PRN (21:00)
[2018-07-23] MEDS ORDERED: DOCUSATE 100 MG CAPSULE PO PRN (21:00)
[2018-07-23] MEDS ORDERED: ONDANSETRON ODT 4 MG PO PRN (21:00)
[2018-07-23] MEDS: HEPARIN 5,000 UNITS/ML, 1ML SQ SCH ×2 (21:00→22:33)
[2018-07-23 21:23] LABS: FREE T4 (FREE THYROXINE) 1.22 ng/dL (0.76-1.46); THYROID STIMULATING HORMONE 1.15 mIU/L (0.358-3.740)
[2018-07-23] MEDS: SODIUM CHLORIDE 0.9% 1,000 ML IV SCH (21:30)
[2018-07-23] MEDS: QUETIAPINE 25MG TABLET PO SCH (22:33)
[2018-07-23] MEDS: LORazepam 0.5MG TABLET PO PRN (22:33)
[2018-07-23] MEDS: DULOXETINE 30 MG CAPSULE.DR PO SCH (22:35)
[2018-07-23 23:34] LABS: ANION GAP 18 mmol/L (5-15); CALCIUM 8.5 mg/dL (8.5-10.1); CHLORIDE 108 mmol/L (98-107); CREATININE 1.41 mg/dL (0.55-1.02)
[2018-07-24 02:03] VITALS: BP 130/72
[2018-07-24] MEDS: SODIUM CHLORIDE 0.9% 1,000 ML IV SCH ×2 (03:29→18:14)
[2018-07-24 04:33] LABS: BASOPHILS # (AUTO) 0.02 x10^3/uL (0-0.1); BASOPHILS % (AUTO) 0 % (0-1); EOSINOPHILS # (AUTO) 0.03 x10^3/uL (0-0.4); EOSINOPHILS % (AUTO) 0 % (1-7); LYMPHOCYTES # (AUTO) 3.14 x10^3/uL (1-3.4); LYMPHOCYTES % (AUTO) 22 % (22-44); MD NO; MEAN CORPUSCULAR HEMOGLOBIN 30.9 pg (27.0-34.8); MEAN CORPUSCULAR HGB CONC 33.8 g/dL (32.4-35.8); MEAN CORPUSCULAR VOLUME 91.5 fL (80-100); MEAN PLATELET VOLUME 7.6 fL (7.4-10.4); MONOCYTES # (AUTO) 0.78 x10^3/uL (0.2-0.8); MONOCYTES % (AUTO) 6 % (2-9); NEUTROPHILS % (AUTO) 72 % (42-75); PLATELET COUNT 435 x10^3/uL (130-400); RED BLOOD COUNT 3.72 x10^6/uL (3.82-5.3); RED CELL DISTRIBUTION WIDTH 13.2 % (9.6-15.2)
[2018-07-24 04:39] LABS: ANION GAP 11 mmol/L (5-15); CALCIUM 7.6 mg/dL (8.5-10.1); CHLORIDE 108 mmol/L (98-107); CHOLESTEROL, TOTAL 194 mg/dL (140-239); CREATININE 1.31 mg/dL (0.55-1.02); TRIGLYCERIDES 172 mg/dL (50-200); VLDL CHOLESTEROL 34 mg/dL (0-25)
[2018-07-24 04:41] LABS: HDL CHOL % 33 % (28-40); HDL CHOLESTEROL (DIRECT) 64 mg/dL (40-60); LDL CHOLESTEROL,CALCULATED 96 mg/dL (54-169); LDL/HDL RATIO 1.5 (0.5-3.0)
[2018-07-24] MEDS: HEPARIN 5,000 UNITS/ML, 1ML SQ SCH ×3 (05:00→21:31)
[2018-07-24] MEDS: INSULIN GLARGINE 100 UNITS/ML, PEN SQ-INSULIN SCH ×3 (08:26→22:12)
[2018-07-24] MEDS: GABAPENTIN 300 MG CAPSULE PO SCH ×3 (09:59→21:54)
[2018-07-24] MEDS: PANTOPROZOLE 40MG TABLET PO SCH (09:59)
[2018-07-24] MEDS: CLOPIDOGREL 75 MG TABLET PO SCH (09:59)
[2018-07-24] MEDS: INSULIN LISPRO 100 UNITS/ML, PEN SQ-INSULIN SCH ×3 (11:58→22:12)
[2018-07-24 19:13] VITALS: BP 125/74
[2018-07-24] MEDS: NICOTINE 14MG/24 HR PATCH.TD24 TD SCH (20:10)
[2018-07-24] MEDS: HYDROcodone/APAP 5/325 TABLET PO PRN (20:10)
[2018-07-24] MEDS: DULOXETINE 30 MG CAPSULE.DR PO SCH (21:53)
[2018-07-24] MEDS: QUETIAPINE 25MG TABLET PO SCH (21:54)
[2018-07-24] MEDS: LORazepam 0.5MG TABLET PO PRN (22:14)
[2018-07-25 01:13] VITALS: BP 124/81
[2018-07-25] MEDS: HYDROcodone/APAP 5/325 TABLET PO PRN ×4 (01:53→21:37)
[2018-07-25] MEDS: SODIUM CHLORIDE 0.9% 1,000 ML IV SCH ×3 (03:59→22:51)
[2018-07-25] MEDS: HEPARIN 5,000 UNITS/ML, 1ML SQ SCH ×4 (04:27→18:13)
[2018-07-25 08:06] LABS: BASOPHILS # (AUTO) 0.05 x10^3/uL (0-0.1); BASOPHILS % (AUTO) 1 % (0-1); EOSINOPHILS # (AUTO) 0.45 x10^3/uL (0-0.4); EOSINOPHILS % (AUTO) 7 % (1-7); LYMPHOCYTES # (AUTO) 2.77 x10^3/uL (1-3.4); LYMPHOCYTES % (AUTO) 41 % (22-44); MD NO; MEAN CORPUSCULAR HEMOGLOBIN 30.5 pg (27.0-34.8); MEAN CORPUSCULAR HGB CONC 33.2 g/dL (32.4-35.8); MEAN CORPUSCULAR VOLUME 91.7 fL (80-100); MEAN PLATELET VOLUME 7.4 fL (7.4-10.4); MONOCYTES # (AUTO) 0.36 x10^3/uL (0.2-0.8); MONOCYTES % (AUTO) 5 % (2-9); NEUTROPHILS % (AUTO) 47 % (42-75); PLATELET COUNT 330 x10^3/uL (130-400); RED BLOOD COUNT 3.55 x10^6/uL (3.82-5.3); RED CELL DISTRIBUTION WIDTH 13.4 % (9.6-15.2)
[2018-07-25 08:12] LABS: ANION GAP 7 mmol/L (5-15); CHLORIDE 106 mmol/L (98-107); CREATININE 1.09 mg/dL (0.55-1.02)
[2018-07-25] MEDS: GABAPENTIN 300 MG CAPSULE PO SCH ×3 (08:18→20:02)
[2018-07-25 08:20] VITALS: BP 126/77
[2018-07-25] MEDS: CLOPIDOGREL 75 MG TABLET PO SCH (08:20)
[2018-07-25] MEDS: PANTOPROZOLE 40MG TABLET PO SCH (08:22)
[2018-07-25] MEDS: INSULIN GLARGINE 100 UNITS/ML, PEN SQ-INSULIN SCH (08:26)
[2018-07-25] MEDS: INSULIN LISPRO 100 UNITS/ML, PEN SQ-INSULIN SCH ×4 (08:27→20:12)
[2018-07-25] MEDS: LORazepam 0.5MG TABLET PO PRN ×2 (08:31→21:37)
[2018-07-25] MEDS ORDERED: INSULIN LISPRO 100 UNITS/ML, PEN SQ-INSULIN SCH (11:00)
[2018-07-25 14:37] VITALS: BP 134/79
[2018-07-25 18:54] VITALS: BP 128/80
[2018-07-25] MEDS: DULOXETINE 30 MG CAPSULE.DR PO SCH (20:02)
[2018-07-25] MEDS: NICOTINE 14MG/24 HR PATCH.TD24 TD SCH (20:10)
[2018-07-25] MEDS ORDERED: INSULIN GLARGINE 100 UNITS/ML, PEN SQ-INSULIN SCH (21:00)
[2018-07-25] MEDS: QUETIAPINE 25MG TABLET PO SCH (21:38)
[2018-07-26 01:07] VITALS: BP 127/81
[2018-07-26 04:47] LABS: ANION GAP 4 mmol/L (5-15); CALCIUM 7.8 mg/dL (8.5-10.1); CHLORIDE 109 mmol/L (98-107); CREATININE 0.68 mg/dL (0.55-1.02)
[2018-07-26 04:49] LABS: BASOPHILS # (AUTO) 0.04 x10^3/uL (0-0.1); BASOPHILS % (AUTO) 1 % (0-1); EOSINOPHILS # (AUTO) 0.45 x10^3/uL (0-0.4); EOSINOPHILS % (AUTO) 6 % (1-7); LYMPHOCYTES # (AUTO) 2.71 x10^3/uL (1-3.4); LYMPHOCYTES % (AUTO) 39 % (22-44); MD NO; MEAN CORPUSCULAR HEMOGLOBIN 30.7 pg (27.0-34.8); MEAN CORPUSCULAR HGB CONC 32.9 g/dL (32.4-35.8); MEAN CORPUSCULAR VOLUME 93.1 fL (80-100); MEAN PLATELET VOLUME 7.6 fL (7.4-10.4); MONOCYTES # (AUTO) 0.42 x10^3/uL (0.2-0.8); MONOCYTES % (AUTO) 6 % (2-9); NEUTROPHILS # (AUTO) 3.37 x10^3/uL (1.8-6.8); NEUTROPHILS % (AUTO) 48 % (42-75); PLATELET COUNT 300 x10^3/uL (130-400); RED BLOOD COUNT 3.45 x10^6/uL (3.82-5.3); RED CELL DISTRIBUTION WIDTH 13.4 % (9.6-15.2)
[2018-07-26] MEDS: HEPARIN 5,000 UNITS/ML, 1ML SQ SCH ×2 (05:00→13:00)
[2018-07-26] MEDS: INSULIN LISPRO 100 UNITS/ML, PEN SQ-INSULIN SCH ×3 (07:00→16:24)
[2018-07-26] MEDS: GABAPENTIN 300 MG CAPSULE PO SCH ×2 (07:43→16:25)
[2018-07-26] MEDS: CLOPIDOGREL 75 MG TABLET PO SCH (07:43)
[2018-07-26] MEDS: INSULIN GLARGINE 100 UNITS/ML, PEN SQ-INSULIN SCH (07:43)
[2018-07-26] MEDS: PANTOPROZOLE 40MG TABLET PO SCH (07:43)
[2018-07-26] MEDS: SODIUM CHLORIDE 0.9% 1,000 ML IV SCH (07:47)
[2018-07-26] MEDS: HYDROcodone/APAP 5/325 TABLET PO PRN ×3 (08:43→17:12)
[2018-07-26 10:51] LABS: ALANINE AMINOTRANSFERASE 30 U/L (12-78); ALBUMIN 2.4 g/dL (3.4-5.0)
[2018-07-26 10:52] LABS: ALKALINE PHOSPHATASE 72 U/L (45-117); BILIRUBIN,TOTAL 0.1 mg/dL (0.2-1.0)
[2018-07-26 11:01] LABS: BILIRUBIN, DIRECT < 0.1 mg/dL (0.1-0.2)
[2018-07-26] MEDS: LORazepam 0.5MG TABLET PO PRN (11:27)
[2018-07-26 12:19] VITALS: BP 161/96
[2018-07-26] MEDS ORDERED: OMNIPAQUE 350 MG/ML, 100ML BOTTLE ONE (12:58)
[2018-07-26] MEDS ORDERED: ACET325T14 PO (15:18)
[2018-07-26] MEDS ORDERED: INSU100I11 SQ-INSULIN (15:45)
== END 2018-07-26 18:00 | disposition home or self-care (01) | DRG 637 ==
LOC: ED 18:13 → EDIP 18:14 → ED 18:17 → CCU 20:59 → 3NW 07-24 15:44
PROVIDERS: ADMIT Internal Medicine; ATTEND Internal Medicine
DX: E11.10 Type 2 diabetes mellitus with ketoacidosis without coma (principal); N17.0 Acute kidney failure with tubular necrosis; K86.1 Other chronic pancreatitis; E78.5 Hyperlipidemia, unspecified; E86.0 Dehydration; E87.5 Hyperkalemia; F41.1 Generalized anxiety disorder; F43.10 Post-traumatic stress disorder, unspecified; G89.29 Other chronic pain; E11.42 Type 2 diabetes mellitus with diabetic polyneuropathy; I10 Essential (primary) hypertension; K21.9 Gastro-esophageal reflux disease without esophagitis; Z79.4 Long term (current) use of insulin; Z91.14 Patient's other noncompliance with medication regimen; Z80.0 Family history of malignant neoplasm of digestive organs; Z86.73 Personal history of transient ischemic attack (TIA), and cerebral infarction without residual deficits; Z90.49 Acquired absence of other specified parts of digestive tract; Z87.19 Personal history of other diseases of the digestive system
CPT/HCPCS: 36415; 71045; 74177; 80048; 80053; 80061; 80076; 80307; 81001; 82010; 82803; 82947; 82962; 83036; 83690; 83735; 83930; 84100; 84439; 84443; 85025; 87081; 96360; 99291; G0378; J1644; J1815; J2405; Q9967; J2270; J7030; J7050

== ENCOUNTER 2020-03-27 17:10 | Inpatient (IN) | payer MEDICAID ==
[~2020-03-27] VITALS: Ht 160 cm; Wt 52.3 kg
[~2020-03-27 17:10] MED LIST changes: +INSU100I13 SQ-INSULIN; -PANT40TA5 PO; +PANT40TA6 PO
[2020-03-27] MEDS ORDERED: ONDANSETRON 2MG/ML, 2ML IVPush ONE (17:30)
[2020-03-27] MEDS ORDERED: SODIUM CHLORIDE 0.9% 1,000ML IVBOLUS ONE ×2 (17:30→20:30)
--- NOTE | 2020-03-27 17:32 | NUR ---
GARY RN: PT BIB [facility] FOR HIGH BLOOD SUGAR. FSBS FOR EMS WAS 445. PT IS BREATHING 32 MIN. HX OF DIABETES. PT REPORTS SHE HAS NOT HAD HER INSULIN TODAY. PT CAME FROM HER CUSTODIAL ([address] [place] [address]). PT HAS BEEN SEEN BY DR ARAIZA. EKG DONE. CONTAINER FINISHER ON. SINUS TACH NOTED. CALL LIGHT IN PLACE. REPORT GIVEN TO KATERINA SOTO.
[2020-03-27 17:43] LABS: MEAN CORPUSCULAR HEMOGLOBIN 26.9 pg (27.0-34.8); MEAN PLATELET VOLUME 8.4 fL (7.4-10.4); PLATELET COUNT 684 x10^3/uL (130-400); RED BLOOD COUNT 4.08 x10^6/uL (3.82-5.3); RED CELL DISTRIBUTION WIDTH 18.1 % (9.6-15.2)
[2020-03-27 17:50] LABS: MEAN CORPUSCULAR HGB CONC 29.4 g/dL (32.4-35.8)
[2020-03-27 17:51] LABS: MD YES
[2020-03-27 17:55] LABS: ALBUMIN 3.6 g/dL (3.4-5.0); ANION GAP 24 mmol/L (5-15); CALCIUM 8.8 mg/dL (8.5-10.1); CHLORIDE 107 mmol/L (98-107); CREATININE 1.11 mg/dL (0.55-1.02)
[2020-03-27] MEDS ORDERED: ONDANSETRON 2MG/ML, 2ML ONE (17:55)
[2020-03-27 17:58] LABS: ALANINE AMINOTRANSFERASE 24 U/L (12-78); ALKALINE PHOSPHATASE 187 U/L (45-117); BILIRUBIN,TOTAL 0.4 mg/dL (0.2-1.0); TOTAL PROTEIN 7.8 g/dL (6.4-8.2)
[2020-03-27 17:59] LABS: PH, VENOUS 6.863 pH (7.320-7.420)
--- NOTE | 2020-03-27 18:00 | NUR ---
PT MEDICATED PER AUG. 1 OF 2 LITERS COMPLETE AT THIS TIME. VSS PT RESTING IN BED RAPID IRREGULAR RESPIRATIONS. WARM BLANKETS PROVIDED FOR COMFORT. IV ACCESS USING US MACHINE OBTAINED. UNABLE TO ESTABLISH 2ND LINE AT THIS TIME.
[2020-03-27 18:13] LABS: BAND#(MANUAL) 1.84 x10^3/uL; BANDS%(MANUAL) 10 % (0-7); BASOS#(MANUAL) 0.18 x10^3/uL (0-0.1); BASOS% (MANUAL) 1 % (0-1); EOS#(MANUAL) 0.18 x10^3/uL (0.0-0.4); EOS% (MANUAL) 1 % (1-7); LYMPH#(MANUAL) 3.31 x10^3/uL (1-3.4); LYMPHS% (MANUAL) 18 % (22-44); MONOS#(MANUAL) 1.47 x10^3/uL (0.3-2.7); MONOS% (MANUAL) 8 % (2-9); MYELOCYTES# (MANUAL) 0.37 x10^3/uL (0-0); MYELOCYTES% (MANUAL) 2 % (0-0); PROGRANULOCYTES# (MANUAL) 0.37 x10^3/uL (0-0); PROGRANULOCYTES% (MANUAL) 2 % (0-0); SEG#(MANUAL) 10.67 x10^3/uL (1.8-6.8); SEGS% (MANUAL) 58 % (42-75)
--- NOTE | 2020-03-27 18:13 | NUR ---
Report from Joselito BORGES. Pt moved to T3 for further care. Pt A&O x4, restless in bed but cooperative with staff interventions, kussmal respirations noted, ERMD aware. Continuous heart, oxygen and BP monitors are in place. Per Joselito BORGES one necklace was removed from pt and placed in pt's purse. One shirt placed in pt's purse as well.
[2020-03-27 18:14] LABS: <PLATELET ESTIMATE> INCREASED; GIANT PLATELETS 1+; LARGE PLATELETS 1+
[2020-03-27 18:15] LABS: <WBC MORPHOLOGY> NORMAL; POLYCHROMASIA 1+
[2020-03-27 18:16] LABS: HYPOCHROMIA 2+
[2020-03-27 18:17] LABS: TEAR DROPS 1+
[2020-03-27 18:18] LABS: ANISOCYTOSIS 1+; CRENATED 1+; OVALOCYTES 1+; TARGET CELLS 1+
--- NOTE | 2020-03-27 18:19 | NUR ---
[facility], pt states she doesn't know the name, states "they changed it". Address of penitentiary is [address] [place] [address].
[2020-03-27 18:28] LABS: ACETONE, SERUM Large (80mg/dL) (Negative)
[2020-03-27] MEDS ORDERED: LACTATED RINGERS 1,000 ML IVBOLUS ONE (18:30)
[2020-03-27] MEDS ORDERED: D5%-LACTATED RINGERS 1,000 ML IV ONE (18:30)
[2020-03-27] MEDS ORDERED: REGULAR INSULIN 100 UNITS in SODIUM CHLORIDE 0.9% 99 ML IV PRN ×2 (18:30→20:30)
--- NOTE | 2020-03-27 18:32 | NUR ---
Insulin gtt requested from pharmacy.
--- NOTE | 2020-03-27 18:38 | NUR ---
Spoke with pharmacist Marcos. Insulin gtt and D5/LR can be run concurrently in the same PIV.
--- NOTE | 2020-03-27 18:58 | NUR ---
REPORT OF PT FROM KATERINA REYNOLDS AND ASSUMING CARE OF PT AT THIS TIME.
--- NOTE | 2020-03-27 19:07 | NUR ---
PT RESTING IN GURNEY AT THIS TIME. PT AWAKE, BUT CONFUSED, AND ABLE TO ANSWER SIMPLE QUESTIONS BUT ALTERED. FSBS TAKEN BY RODOLFO RECENTLY SHOWS FSBS 263. PER DR ARAIZA, PT TO RECEIVE D50 AMPULE AT PRESENT AND INSULIN DRIP TO BE STARTED WITH D5%LR AFTER CURRENT LR BOLUS. PT ATTACHED TO ALL VS AND CARDIAC MONITORS. VSS AT THIS TIME.
[2020-03-27] MEDS ORDERED: DEXTROSE 50%, 50ML SYRINGE ONE (19:13)
[2020-03-27] MEDS ORDERED: ONDANSETRON 2MG/ML, 2ML IVPush PRN (19:30)
[2020-03-27] MEDS ORDERED: DEXTROSE 50%, 50ML SYRINGE IVPush ONE (19:30)
--- NOTE | 2020-03-27 19:40 | NUR ---
RECTAL TEMPERATURE OBTAINED AT THIS TIME. KATERINA Carter AT FOR DOUBLE RN INSULIN SIGNOFF. INSULIN DROP STARTED PER PROTOCOL AND EMAR. MAINTENANCE FLUIDS INITIATED AT THIS TIME WELL.
--- NOTE | 2020-03-27 20:26 | NUR ---
REPORT OF PT TO KATERINA BARBOUR. ALL QUESTIONS ANSWERED.
[2020-03-27] MEDS ORDERED: LABETALOL 5MG/ML, 20ML IVPush PRN (20:30)
[2020-03-27] MEDS ORDERED: ACETAMINOPHEN 325 MG TABLET PO PRN (20:30)
[2020-03-27] MEDS ORDERED: ONDANSETRON 2MG/ML, 2ML IV PRN (20:30)
[2020-03-27] MEDS: FAMOTIDINE 20 MG/2 ML IVPush SCH (22:26)
[2020-03-27] MEDS: SODIUM CHLORIDE 0.9% 1,000 ML IV SCH (22:28)
[2020-03-27 22:53] LABS: CALCIUM 7.7 mg/dL (8.5-10.1); CHLORIDE 118 mmol/L (98-107); CREATININE 1.02 mg/dL (0.55-1.02)
[2020-03-27 23:06] LABS: ANION GAP 18 mmol/L (5-15)
[2020-03-27 23:30] LABS: INTERNATIONAL NORMALIZED RATIO 0.94 (0.93-1.1)
[2020-03-28] MEDS: SODIUM CHLORIDE 0.9% 1,000 ML IV SCH ×3 (00:28→10:34)
[2020-03-28] MEDS ORDERED: CALCIUM GLUCONATE 4.6 MEQ in SODIUM CHLORIDE 0.9% 50 ML IV ONE (00:30)
[2020-03-28] MEDS: D5%-0.45% NACL 1,000 ML IV SCH ×5 (01:00→22:52)
[2020-03-28 02:19] LABS: MICROSCOPIC AUTO
[2020-03-28 02:28] LABS: AMPHETAMINE SCREEN, URINE Negative (Negative); BARBITURATE SCREEN, URINE Negative (Negative); BENZODIAZEPINE SCREEN, URINE Negative (Negative); CANNABINOID SCREEN, URINE Negative (Negative); COCAINE SCREEN, URINE Negative (Negative); METHADONE SCREEN, URINE Negative (Negative); OPIATE SCREEN, URINE Negative (Negative)
[2020-03-28 07:21] LABS: ALANINE AMINOTRANSFERASE 18 U/L (12-78); ALBUMIN 2.5 g/dL (3.4-5.0); ANION GAP 16 mmol/L (5-15); CALCIUM 7.5 mg/dL (8.5-10.1); CHLORIDE 119 mmol/L (98-107); CREATININE 0.76 mg/dL (0.55-1.02)
[2020-03-28 07:22] LABS: BASOPHILS % (AUTO) 1 % (0-1); EOSINOPHILS % (AUTO) 1 % (1-7); LYMPHOCYTES % (AUTO) 16 % (22-44); MEAN CORPUSCULAR HGB CONC 31.5 g/dL (32.4-35.8); MEAN PLATELET VOLUME 7.8 fL (7.4-10.4); MONOCYTES % (AUTO) 9 % (2-9); NEUTROPHILS % (AUTO) 74 % (42-75); PLATELET COUNT 534 x10^3/uL (130-400); RED BLOOD COUNT 3.08 x10^6/uL (3.82-5.3); RED CELL DISTRIBUTION WIDTH 17.2 % (9.6-15.2)
[2020-03-28 07:23] LABS: ALKALINE PHOSPHATASE 131 U/L (45-117); BILIRUBIN,TOTAL 0.3 mg/dL (0.2-1.0); TOTAL PROTEIN 5.4 g/dL (6.4-8.2)
[2020-03-28 08:13] LABS: MD SCAN
[2020-03-28] MEDS: FAMOTIDINE 20 MG/2 ML IVPush SCH (10:34)
[2020-03-28 12:55] LABS: CALCIUM 7.9 mg/dL (8.5-10.1); CHLORIDE 112 mmol/L (98-107)
[2020-03-28 12:59] LABS: ANION GAP 14 mmol/L (5-15); CREATININE 0.97 mg/dL (0.55-1.02)
[2020-03-28 17:18] LABS: ANION GAP 10 mmol/L (5-15); CHLORIDE 113 mmol/L (98-107); CREATININE 0.84 mg/dL (0.55-1.02)
[2020-03-29 04:46] LABS: ANION GAP 8 mmol/L (5-15); CALCIUM 8.5 mg/dL (8.5-10.1); CHLORIDE 111 mmol/L (98-107); CREATININE 0.89 mg/dL (0.55-1.02)
[2020-03-29 08:00] VITALS: BP 151/79
[2020-03-29] MEDS ORDERED: INSULIN GLARGINE 100 UNITS/ML, PEN SQ-INSULIN SCH (09:00)
[2020-03-29] MEDS: CLOPIDOGREL 75 MG TABLET PO SCH (09:10)
[2020-03-29] MEDS: POTASSIUM CHLORIDE 20 MEQ TAB.ER.PRT PO SCH ×3 (09:10→16:29)
[2020-03-29] MEDS: LISINOPRIL 5 MG TABLET PO SCH (09:10)
[2020-03-29] MEDS: INSULIN LISPRO 100 UNITS/ML, PEN SQ-INSULIN SCH ×4 (09:11→20:34)
[2020-03-29 10:50] VITALS: BP 141/86
[2020-03-29 16:00] VITALS: BP 159/85
[2020-03-29 18:24] VITALS: BP 146/84
[2020-03-29] MEDS: QUETIAPINE 25MG TABLET PO SCH (20:33)
[2020-03-29] MEDS: INSULIN GLARGINE 100 UNITS/ML, PEN SQ-INSULIN SCH (20:34)
[2020-03-30 00:44] VITALS: BP 138/80
[2020-03-30 06:01] LABS: ANION GAP 6 mmol/L (5-15); CALCIUM 8.8 mg/dL (8.5-10.1); CHLORIDE 113 mmol/L (98-107)
[2020-03-30 06:04] LABS: CREATININE 0.74 mg/dL (0.55-1.02)
[2020-03-30] MEDS: INSULIN LISPRO 100 UNITS/ML, PEN SQ-INSULIN SCH ×4 (07:00→20:21)
[2020-03-30 07:33] VITALS: BP 146/71
[2020-03-30] MEDS: CLOPIDOGREL 75 MG TABLET PO SCH (08:10)
[2020-03-30] MEDS: LISINOPRIL 5 MG TABLET PO SCH (08:10)
[2020-03-30] MEDS: INSULIN GLARGINE 100 UNITS/ML, PEN SQ-INSULIN SCH ×2 (08:11→20:21)
[2020-03-30 12:16] VITALS: BP 135/81
[2020-03-30] MEDS ORDERED: LORazepam 0.5MG TABLET PO PRN (16:00)
[2020-03-30 18:59] VITALS: BP 143/88
[2020-03-30] MEDS: QUETIAPINE 25MG TABLET PO SCH (20:21)
[2020-03-31 01:16] VITALS: BP 124/81
[2020-03-31 05:02] LABS: ANION GAP 5 mmol/L (5-15); CALCIUM 8.5 mg/dL (8.5-10.1); CHLORIDE 108 mmol/L (98-107); CREATININE 0.76 mg/dL (0.55-1.02)
[2020-03-31 06:15] VITALS: BP 118/73
[2020-03-31] MEDS: INSULIN GLARGINE 100 UNITS/ML, PEN SQ-INSULIN SCH (07:41)
[2020-03-31] MEDS: INSULIN LISPRO 100 UNITS/ML, PEN SQ-INSULIN SCH ×3 (07:41→15:34)
[2020-03-31] MEDS: CLOPIDOGREL 75 MG TABLET PO SCH (07:42)
[2020-03-31] MEDS: LISINOPRIL 5 MG TABLET PO SCH (07:42)
[2020-03-31] MEDS ORDERED: DULOXETINE 30 MG CAPSULE.DR PO SCH (09:00)
[2020-03-31 14:56] VITALS: BP 138/84
== END 2020-03-31 15:52 | disposition home or self-care (01) | DRG 637 ==
LOC: ED 19:04 → EDIP 19:26 → CCU 20:42 → 3N 03-29 10:31
PROVIDERS: ADMIT Family Medicine; ATTEND Hospitalist
DX: E10.10 Type 1 diabetes mellitus with ketoacidosis without coma (principal); K22.6 Gastro-esophageal laceration-hemorrhage syndrome; G93.41 Metabolic encephalopathy; F33.0 Major depressive disorder, recurrent, mild; K21.9 Gastro-esophageal reflux disease without esophagitis; J44.9 Chronic obstructive pulmonary disease, unspecified; I50.9 Heart failure, unspecified; I25.10 Atherosclerotic heart disease of native coronary artery without angina pectoris; G89.29 Other chronic pain; G62.9 Polyneuropathy, unspecified; F43.10 Post-traumatic stress disorder, unspecified; F17.210 Nicotine dependence, cigarettes, uncomplicated; F12.90 Cannabis use, unspecified, uncomplicated; E87.5 Hyperkalemia; E86.0 Dehydration; E78.5 Hyperlipidemia, unspecified; F41.1 Generalized anxiety disorder; I11.0 Hypertensive heart disease with heart failure; D72.825 Bandemia; Z79.4 Long term (current) use of insulin; Z80.1 Family history of malignant neoplasm of trachea, bronchus and lung; Z86.73 Personal history of transient ischemic attack (TIA), and cerebral infarction without residual deficits; Z79.899 Other long term (current) drug therapy
CPT/HCPCS: 36415; 84145; 96361; 96374; 96375; 99291; J7121; 71045; 80048; 80053; 80307; 81001; 82010; 82803; 82962; 83036; 83605; 83690; 83735; 84100; 84443; 85025; 85610; 87040; 87081; 93005; G0378; J0610; J2405; J1815; J7030; J7120

== ENCOUNTER → 2020-06-21 | Outpatient (CLI) | payer MEDICAID ==
[~2020-06-21] MED LIST changes: -ESCI5TAB PO; +ESCI5TAB25 PO; +REGADENOSON 0.4 MG/5 ML SYRINGE ONE
== END | disposition home or self-care (01) ==
LOC: CFH 12:39
PROVIDERS: ATTEND Internal Medicine
DX: I25.89 Other forms of chronic ischemic heart disease (principal)
CPT/HCPCS: 78452; 93017; A9502; J2785

== ENCOUNTER 2020-07-07 15:47 | Inpatient (IN) | payer MEDICAID ==
[~2020-07-07] VITALS: Ht 157.5 cm; Wt 63.8 kg
[~2020-07-07 15:47] MED LIST changes: -ESCI5TAB25 PO; +ESCI5TAB8 PO; +HYDR-1067 PO; -HYDR-3240 PO; -REGADENOSON 0.4 MG/5 ML SYRINGE ONE
[2020-07-07] MEDS ORDERED: SODIUM CHLORIDE 0.9% 1,000ML IVBOLUS ONE (16:00)
--- NOTE | 2020-07-07 16:03 | NUR ---
PATIENT BIB [facility] WITH CHIEF C/O CHEST DISCOMFORT AND SOB X 2 MONTHS. PER PATIENT SYMPTOMS HAVE GOTTEN PROGRESSIVELY WORSE WITH TIME. PATIENT ALSO REPORTS FEELING DIZZY AND WEAK. WHEN EMS ARRIVED PATIENT'S BLOOD SUGAR 516, RR 20-30 PER MINUTE, O2 SATURATION 98% ON RA. EMS UNABLE TO START A LINE DUE TO PATIENT REQUESTING ULTRASOUND MACHINE. RECHECKED PATIENT'S BLOOD SUGAR, GLUCOSE MONITOR READS >600, ERMD NOTIFIED.
--- NOTE | 2020-07-07 17:05 | NUR ---
BLOOD COLLECTED AND SENT TO LAB, NO IV AT THIS TIME, 3 ULTRASOUND IV'S ATTEMPTED BY DIFFERENT RN'S. ERMD AWARE. PATIENT ASSISTED TO BSC FOR URINE SAMPLE.
[2020-07-07] MEDS ORDERED: HYDROmorphone 2 MG/ML, 1ML ONE (17:10)
[2020-07-07 17:20] LABS: ALANINE AMINOTRANSFERASE 20 U/L (12-78); ALBUMIN 4.1 g/dL (3.4-5.0); ANION GAP 17 mmol/L (5-15); CHLORIDE 94 mmol/L (98-107); CREATININE 1.93 mg/dL (0.55-1.02)
--- NOTE | 2020-07-07 17:21 | NUR ---
PATIENT MEDICATED PER eMAR, URINE COLLECTED AND SENT TO LAB. LAB NEEDS TO REDRAW CBC AND VBG.
[2020-07-07 17:25] LABS: ALKALINE PHOSPHATASE 128 U/L (45-117); BILIRUBIN,TOTAL 0.7 mg/dL (0.2-1.0); TOTAL PROTEIN 8.1 g/dL (6.4-8.2); TROPONIN I < 0.015 ng/mL (0.000-0.045)
[2020-07-07 17:33] LABS: MICROSCOPIC AUTO
--- NOTE | 2020-07-07 17:37 | NUR ---
GLUCOSE OF [address] HESTER.
[2020-07-07 17:44] LABS: FIO2 ROOM AIR %
[2020-07-07 17:46] LABS: BASOPHILS % (AUTO) 2 % (0-1); EOSINOPHILS % (AUTO) 1 % (1-7); LYMPHOCYTES % (AUTO) 26 % (22-44); MEAN CORPUSCULAR HEMOGLOBIN 21.6 pg (27.0-34.8); MEAN CORPUSCULAR HGB CONC 30.2 g/dL (32.4-35.8); MEAN PLATELET VOLUME 8.7 fL (7.4-10.4); MONOCYTES % (AUTO) 7 % (2-9); NEUTROPHILS % (AUTO) 65 % (42-75); PLATELET COUNT 709 x10^3/uL (130-400); RED BLOOD COUNT 5.08 x10^6/uL (3.82-5.3); RED CELL DISTRIBUTION WIDTH 19.3 % (9.6-15.2)
[2020-07-07 17:55] LABS: ACETONE, SERUM Large (80mg/dL) (Negative)
[2020-07-07] MEDS ORDERED: HYDROmorphone 2 MG/ML, 1ML IM ONE (18:00)
[2020-07-07] MEDS ORDERED: LACTATED RINGERS 1,000 ML IVBOLUS ONE (18:00)
[2020-07-07 18:19] LABS: MD SCAN
[2020-07-07] MEDS ORDERED: REGULAR INSULIN 100 UNITS in SODIUM CHLORIDE 0.9% 99 ML IV PRN (18:30)
[2020-07-07] MEDS ORDERED: INSULIN SINGLE DOSE, ER ONE ×2 (18:32→18:49)
[2020-07-07] MEDS ORDERED: MORPHINE SULFATE 4 MG/ML, 1ML ONE (18:59)
[2020-07-07] MEDS ORDERED: NITROGLYCERIN 0.4 MG BOTTLE (25 TABS) SL PRN (19:00)
[2020-07-07] MEDS ORDERED: BISACODYL 10 MG SUPP PR PRN (19:00)
[2020-07-07] MEDS ORDERED: ONDANSETRON 2MG/ML, 2ML IVPush PRN (19:00)
[2020-07-07] MEDS ORDERED: POLYETHYLENE GLYCOL 17 GM PACKET PO PRN (19:00)
[2020-07-07] MEDS ORDERED: INSULIN REGULAR 100 UNITS/ML, 3ML VIAL SQ-INSULIN ONE (19:00)
--- NOTE | 2020-07-07 19:00 | NUR ---
1ST CONTACT C PT. C/O ALL OVER BODY ACHES, WANTS TO BE TRANSFERED TO ROOM NOW TO GET MORE COMFORTABLE, STATES ER BED IS MAKING HER BODY SORE. ATTEMPTING TO EXPLAIN THE ADMISSION PROCESS TO PT. GAVIN MCKINLEY.
[2020-07-07] MEDS: morphine SULFATE 10 MG/ML, 1ML IVPush PRN ×2 (19:01→22:15)
[2020-07-07] MEDS ORDERED: INSULIN LISPRO 100 UNITS/ML, PEN ONE ×2 (20:10→20:13)
[2020-07-07] MEDS ORDERED: QUETIAPINE 25MG TABLET ONE (20:18)
[2020-07-07] MEDS ORDERED: GABAPENTIN 300 MG CAPSULE ONE (20:18)
[2020-07-07] MEDS: QUETIAPINE 25MG TABLET PO SCH (20:22)
--- NOTE | 2020-07-07 20:29 | NUR ---
PER LAB JESÚS 502, AWARE. PT GIVEN MEDS PER AUG. WILL CTM.
[2020-07-07] MEDS: INSULIN GLARGINE 100 UNITS/ML, PEN SQ-INSULIN SCH (20:58)
[2020-07-07] MEDS: INSULIN LISPRO 100 UNITS/ML, PEN SQ-INSULIN SCH (20:59)
[2020-07-07] MEDS ORDERED: TEMPLATE NON-FORMULARY MED. (Gabapentin** 600 MG) PO SCH (21:00)
[2020-07-07 21:42] VITALS: BP 128/81
[2020-07-07] MEDS: SODIUM CHLORIDE 0.9% 1,000 ML IV SCH (22:01)
[2020-07-07] MEDS: HEPARIN 5,000 UNITS/ML, 1ML SQ SCH (22:14)
[2020-07-07] MEDS: DULOXETINE 30 MG CAPSULE.DR PO SCH (22:15)
[2020-07-07] MEDS: LORazepam 0.5MG TABLET PO PRN (22:15)
[2020-07-07 23:28] LABS: TROPONIN I < 0.015 ng/mL (0.000-0.045)
[2020-07-08] MEDS: INSULIN LISPRO 100 UNITS/ML, PEN SQ-INSULIN SCH ×6 (01:06→23:54)
[2020-07-08] MEDS ORDERED: DEXTROSE 50%, 50ML SYRINGE IVPush PRN (02:00)
[2020-07-08] MEDS ORDERED: DEXTROSE 4 GM TAB.CHEW PO PRN (02:00)
[2020-07-08] MEDS ORDERED: GLUCAGON 1 MG IM PRN (02:00)
[2020-07-08 02:10] VITALS: BP 108/68
[2020-07-08] MEDS: SODIUM CHLORIDE 0.9% 1,000 ML IV SCH ×3 (02:20→06:05)
[2020-07-08 05:55] LABS: BASOPHILS % (AUTO) 1 % (0-1); EOSINOPHILS % (AUTO) 4 % (1-7); LYMPHOCYTES % (AUTO) 40 % (22-44); MEAN CORPUSCULAR HEMOGLOBIN 21.8 pg (27.0-34.8); MEAN CORPUSCULAR HGB CONC 31.9 g/dL (32.4-35.8); MEAN PLATELET VOLUME 8.2 fL (7.4-10.4); MONOCYTES % (AUTO) 7 % (2-9); NEUTROPHILS % (AUTO) 49 % (42-75); PLATELET COUNT 477 x10^3/uL (130-400); RED BLOOD COUNT 3.64 x10^6/uL (3.82-5.3); RED CELL DISTRIBUTION WIDTH 18.3 % (9.6-15.2)
[2020-07-08] MEDS ORDERED: INSULIN LISPRO 100 UNITS/ML, PEN SQ-INSULIN SCH (06:00)
[2020-07-08 06:03] LABS: MD NO
[2020-07-08] MEDS: ASPIRIN 81 MG TABLET EC PO SCH (06:04)
[2020-07-08] MEDS: HEPARIN 5,000 UNITS/ML, 1ML SQ SCH ×3 (06:05→21:07)
[2020-07-08 06:08] LABS: ALBUMIN 2.7 g/dL (3.4-5.0); ANION GAP 11 mmol/L (5-15); CALCIUM 7.6 mg/dL (8.5-10.1); CHLORIDE 107 mmol/L (98-107)
[2020-07-08 06:14] LABS: ALANINE AMINOTRANSFERASE 15 U/L (12-78); ALKALINE PHOSPHATASE 86 U/L (45-117); BILIRUBIN,TOTAL 0.2 mg/dL (0.2-1.0); CHOL/HDL RATIO 3.5; CHOLESTEROL, TOTAL 184 mg/dL (140-239); CREATININE 1.02 mg/dL (0.55-1.02); HDL CHOL % 28 % (28-40); HDL CHOLESTEROL (DIRECT) 52 mg/dL (40-60); LDL CHOLESTEROL,CALCULATED 89 mg/dL (54-169); LDL/HDL RATIO 1.7 (0.5-3.0); TOTAL PROTEIN 5.5 g/dL (6.4-8.2); TRIGLYCERIDES 217 mg/dL (50-200); TROPONIN I < 0.015 ng/mL (0.000-0.045); VLDL CHOLESTEROL 43 mg/dL (0-25)
[2020-07-08 06:59] VITALS: BP 107/63
[2020-07-08] MEDS: SODIUM CHLORIDE FLUSH 10ML SYR IVF SCH ×2 (08:52→20:20)
[2020-07-08] MEDS: SENNA/DOCUSATE TABLET PO SCH (08:52)
[2020-07-08] MEDS: CLOPIDOGREL 75 MG TABLET PO SCH (08:54)
[2020-07-08] MEDS: PANTOPRAZOLE 40MG TABLET PO SCH (08:54)
[2020-07-08] MEDS: GABAPENTIN 300 MG CAPSULE PO SCH ×3 (08:55→20:25)
[2020-07-08] MEDS: LISINOPRIL 5 MG TABLET PO SCH (09:10)
[2020-07-08] MEDS: LORazepam 0.5MG TABLET PO PRN (09:10)
[2020-07-08] MEDS: INSULIN GLARGINE 100 UNITS/ML, PEN SQ-INSULIN SCH ×2 (09:11→20:20)
[2020-07-08] MEDS: morphine SULFATE 10 MG/ML, 1ML IVPush PRN ×2 (13:01→16:48)
[2020-07-08 14:24] LABS: ABSOLUTE RETICS # 0.058 x10^6/uL (0.5-2.5); RED BLOOD COUNT 3.65 x10^6/uL (3.82-5.3); RETICULOCYTE COUNT % 1.59 % (0.5-1.5)
[2020-07-08 14:50] VITALS: BP 107/68
[2020-07-08] MEDS: IRON SUCROSE COMPLEX 100MG/5ML IV SCH (16:47)
[2020-07-08 20:18] VITALS: BP 91/56
[2020-07-08] MEDS: QUETIAPINE 25MG TABLET PO SCH (20:24)
[2020-07-08] MEDS: DULOXETINE 30 MG CAPSULE.DR PO SCH (20:25)
[2020-07-08] MEDS: ACETAMINOPHEN 325 MG TABLET PO PRN (20:31)
[2020-07-08 21:05] VITALS: BP 95/56
[2020-07-08 23:13] VITALS: BP 90/55
[2020-07-09] VITALS (7 sets, daily range): BP systolic 93–174; BP diastolic 58–96
[2020-07-09] MEDS: OXYcodone/APAP 5/325MG TABLET PO PRN ×2 (00:26→07:52)
[2020-07-09] MEDS: INSULIN LISPRO 100 UNITS/ML, PEN SQ-INSULIN SCH ×5 (03:55→20:33)
[2020-07-09 05:33] LABS: BASOPHILS % (AUTO) 1 % (0-1); EOSINOPHILS % (AUTO) 7 % (1-7); LYMPHOCYTES % (AUTO) 42 % (22-44); MEAN CORPUSCULAR HEMOGLOBIN 22.5 pg (27.0-34.8); MEAN CORPUSCULAR HGB CONC 32.1 g/dL (32.4-35.8); MEAN PLATELET VOLUME 8.1 fL (7.4-10.4); MONOCYTES % (AUTO) 9 % (2-9); NEUTROPHILS % (AUTO) 40 % (42-75); PLATELET COUNT 407 x10^3/uL (130-400); RED BLOOD COUNT 3.34 x10^6/uL (3.82-5.3); RED CELL DISTRIBUTION WIDTH 18.8 % (9.6-15.2)
[2020-07-09] MEDS: ASPIRIN 81 MG TABLET EC PO SCH (05:37)
[2020-07-09] MEDS: HEPARIN 5,000 UNITS/ML, 1ML SQ SCH ×3 (05:37→22:00)
[2020-07-09] MEDS: SODIUM CHLORIDE 0.9% 1,000 ML IV SCH ×2 (05:37→16:41)
[2020-07-09 05:38] LABS: MD NO
[2020-07-09 05:43] LABS: ANION GAP 4 mmol/L (5-15); CALCIUM 8.2 mg/dL (8.5-10.1); CHLORIDE 112 mmol/L (98-107); CREATININE 0.88 mg/dL (0.55-1.02)
[2020-07-09] MEDS: CLOPIDOGREL 75 MG TABLET PO SCH (07:51)
[2020-07-09] MEDS: GABAPENTIN 300 MG CAPSULE PO SCH ×3 (07:52→20:35)
[2020-07-09] MEDS: SENNA/DOCUSATE TABLET PO SCH ×2 (07:52→08:04)
[2020-07-09] MEDS: PANTOPRAZOLE 40MG TABLET PO SCH (07:52)
[2020-07-09] MEDS: LISINOPRIL 5 MG TABLET PO SCH (07:53)
[2020-07-09] MEDS: IRON SUCROSE COMPLEX 100MG/5ML IV SCH (07:53)
[2020-07-09] MEDS: SODIUM CHLORIDE FLUSH 10ML SYR IVF SCH ×2 (07:53→20:33)
[2020-07-09] MEDS: INSULIN GLARGINE 100 UNITS/ML, PEN SQ-INSULIN SCH ×2 (08:16→20:37)
[2020-07-09] MEDS: morphine SULFATE 10 MG/ML, 1ML IVPush PRN ×3 (10:12→20:39)
[2020-07-09] MEDS: NICOTINE 21 MG/24 HR PATCH.TD24 TD SCH (12:19)
[2020-07-09] MEDS: LORazepam 0.5MG TABLET PO PRN (16:40)
[2020-07-09] MEDS: DULOXETINE 30 MG CAPSULE.DR PO SCH (20:34)
[2020-07-09] MEDS: QUETIAPINE 25MG TABLET PO SCH (20:35)
[2020-07-10 00:15] VITALS: BP 133/76
[2020-07-10] MEDS: morphine SULFATE 10 MG/ML, 1ML IVPush PRN ×5 (00:37→20:26)
[2020-07-10] MEDS: INSULIN LISPRO 100 UNITS/ML, PEN SQ-INSULIN SCH ×6 (04:00→22:15)
[2020-07-10 04:42] LABS: BASOPHILS % (AUTO) 1 % (0-1); EOSINOPHILS % (AUTO) 9 % (1-7); LYMPHOCYTES % (AUTO) 39 % (22-44); MEAN CORPUSCULAR HEMOGLOBIN 22.2 pg (27.0-34.8); MEAN CORPUSCULAR HGB CONC 31.7 g/dL (32.4-35.8); MEAN PLATELET VOLUME 8.2 fL (7.4-10.4); MONOCYTES % (AUTO) 10 % (2-9); NEUTROPHILS % (AUTO) 41 % (42-75); PLATELET COUNT 387 x10^3/uL (130-400); RED CELL DISTRIBUTION WIDTH 18.8 % (9.6-15.2)
[2020-07-10 04:43] LABS: MD NO
[2020-07-10 04:53] LABS: ANION GAP 7 mmol/L (5-15); CALCIUM 8.2 mg/dL (8.5-10.1); CHLORIDE 113 mmol/L (98-107); CREATININE 0.72 mg/dL (0.55-1.02)
[2020-07-10] MEDS: SODIUM CHLORIDE 0.9% 1,000 ML IV SCH ×2 (05:33→16:17)
[2020-07-10] MEDS: ASPIRIN 81 MG TABLET EC PO SCH (05:34)
[2020-07-10] MEDS: HEPARIN 5,000 UNITS/ML, 1ML SQ SCH ×3 (05:34→22:03)
[2020-07-10 06:53] VITALS: BP 115/74
[2020-07-10] MEDS: INSULIN GLARGINE 100 UNITS/ML, PEN SQ-INSULIN SCH (09:00)
[2020-07-10] MEDS: LISINOPRIL 5 MG TABLET PO SCH (09:19)
[2020-07-10] MEDS: IRON SUCROSE COMPLEX 100MG/5ML IV SCH (09:19)
[2020-07-10] MEDS: SENNA/DOCUSATE TABLET PO SCH (09:19)
[2020-07-10] MEDS: CLOPIDOGREL 75 MG TABLET PO SCH (09:20)
[2020-07-10] MEDS: PANTOPRAZOLE 40MG TABLET PO SCH (09:20)
[2020-07-10] MEDS: GABAPENTIN 300 MG CAPSULE PO SCH ×3 (09:20→22:02)
[2020-07-10] MEDS: NICOTINE 21 MG/24 HR PATCH.TD24 TD SCH (09:20)
[2020-07-10] MEDS: SODIUM CHLORIDE FLUSH 10ML SYR IVF SCH ×2 (09:23→22:03)
[2020-07-10 09:25] VITALS: BP 157/84
[2020-07-10 13:25] VITALS: BP 155/85
[2020-07-10 21:56] VITALS: BP 128/74
[2020-07-10] MEDS: QUETIAPINE 25MG TABLET PO SCH (22:02)
[2020-07-10] MEDS: DULOXETINE 30 MG CAPSULE.DR PO SCH (22:02)
[2020-07-10] MEDS: LORazepam 0.5MG TABLET PO PRN (22:16)
[2020-07-11] MEDS: morphine SULFATE 10 MG/ML, 1ML IVPush PRN ×5 (00:31→20:13)
[2020-07-11] MEDS: INSULIN LISPRO 100 UNITS/ML, PEN SQ-INSULIN SCH ×6 (00:50→20:03)
[2020-07-11] MEDS: SODIUM CHLORIDE 0.9% 1,000 ML IV SCH ×5 (02:00→20:25)
[2020-07-11 02:14] VITALS: BP 114/78
[2020-07-11 05:27] LABS: ABSOLUTE RETICS # 0.094 x10^6/uL (0.5-2.5); BASOPHILS % (AUTO) 1 % (0-1); EOSINOPHILS % (AUTO) 6 % (1-7); LYMPHOCYTES % (AUTO) 35 % (22-44); MEAN CORPUSCULAR HEMOGLOBIN 22.1 pg (27.0-34.8); MEAN CORPUSCULAR HGB CONC 31.6 g/dL (32.4-35.8); MEAN PLATELET VOLUME 8.3 fL (7.4-10.4); MONOCYTES % (AUTO) 6 % (2-9); NEUTROPHILS % (AUTO) 52 % (42-75); PLATELET COUNT 361 x10^3/uL (130-400); RED BLOOD COUNT 3.78 x10^6/uL (3.82-5.3); RED CELL DISTRIBUTION WIDTH 18.8 % (9.6-15.2); RETICULOCYTE COUNT % 2.48 % (0.5-1.5)
[2020-07-11 05:35] LABS: ANION GAP 5 mmol/L (5-15); CALCIUM 8.8 mg/dL (8.5-10.1); CHLORIDE 112 mmol/L (98-107); MD NO
[2020-07-11 05:36] LABS: CREATININE 0.82 mg/dL (0.55-1.02)
[2020-07-11] MEDS: ASPIRIN 81 MG TABLET EC PO SCH (06:02)
[2020-07-11] MEDS: HEPARIN 5,000 UNITS/ML, 1ML SQ SCH ×3 (06:02→20:25)
[2020-07-11 07:19] VITALS: BP 114/74
[2020-07-11] MEDS: GABAPENTIN 300 MG CAPSULE PO SCH ×3 (08:16→20:04)
[2020-07-11] MEDS: NICOTINE 21 MG/24 HR PATCH.TD24 TD SCH (08:16)
[2020-07-11] MEDS: LISINOPRIL 5 MG TABLET PO SCH (08:17)
[2020-07-11] MEDS: CLOPIDOGREL 75 MG TABLET PO SCH (08:17)
[2020-07-11] MEDS: SENNA/DOCUSATE TABLET PO SCH (08:17)
[2020-07-11] MEDS: PANTOPRAZOLE 40MG TABLET PO SCH (08:17)
[2020-07-11] MEDS: IRON SUCROSE COMPLEX 100MG/5ML IV SCH (08:18)
[2020-07-11] MEDS: LORazepam 0.5MG TABLET PO PRN (08:46)
[2020-07-11] MEDS: SODIUM CHLORIDE FLUSH 10ML SYR IVF SCH ×2 (08:48→20:14)
[2020-07-11] MEDS ORDERED: HEPARIN 1,000 UNITS/ML, 10ML ONE (13:27)
[2020-07-11] MEDS ORDERED: MIDAZOLAM 1 MG/ML, 5ML ONE (13:27)
[2020-07-11] MEDS ORDERED: TICAGRELOR 90 MG TABLET ONE (13:27)
[2020-07-11] MEDS ORDERED: BIVALIRUDIN 250 MG ONE (13:27)
[2020-07-11] MEDS ORDERED: FENTANYL PF 100 MCG/2ML ONE (13:27)
[2020-07-11] MEDS ORDERED: VERAPAMIL 2.5 MG/ML, 2ML ONE (13:27)
[2020-07-11] MEDS ORDERED: LIDOCAINE-MPF 1%, 5ML ONE (13:27)
[2020-07-11 14:54] VITALS: BP 142/79
[2020-07-11 19:53] VITALS: BP 106/66
[2020-07-11] MEDS: DULOXETINE 30 MG CAPSULE.DR PO SCH (20:03)
[2020-07-11] MEDS: QUETIAPINE 25MG TABLET PO SCH (20:04)
[2020-07-11] MEDS ORDERED: DOCUSATE 100 MG CAPSULE PO PRN (21:30)
[2020-07-12 00:08] VITALS: BP 107/56
[2020-07-12] MEDS: morphine SULFATE 10 MG/ML, 1ML IVPush PRN ×2 (00:14→04:48)
[2020-07-12] MEDS: LORazepam 0.5MG TABLET PO PRN ×2 (01:53→08:08)
[2020-07-12] MEDS: ACETAMINOPHEN 325 MG TABLET PO PRN (04:50)
[2020-07-12] MEDS: INSULIN LISPRO 100 UNITS/ML, PEN SQ-INSULIN SCH ×3 (04:50→07:49)
[2020-07-12 05:24] LABS: BASOPHILS % (AUTO) 1 % (0-1); EOSINOPHILS % (AUTO) 5 % (1-7); LYMPHOCYTES % (AUTO) 28 % (22-44); MEAN CORPUSCULAR HEMOGLOBIN 22.1 pg (27.0-34.8); MEAN CORPUSCULAR HGB CONC 31.2 g/dL (32.4-35.8); MEAN PLATELET VOLUME 8.4 fL (7.4-10.4); MONOCYTES % (AUTO) 7 % (2-9); NEUTROPHILS % (AUTO) 59 % (42-75); PLATELET COUNT 351 x10^3/uL (130-400); RED BLOOD COUNT 3.43 x10^6/uL (3.82-5.3); RED CELL DISTRIBUTION WIDTH 19.5 % (9.6-15.2)
[2020-07-12 05:25] LABS: MD NO
[2020-07-12] MEDS: HEPARIN 5,000 UNITS/ML, 1ML SQ SCH (05:34)
[2020-07-12] MEDS: SODIUM CHLORIDE 0.9% 1,000 ML IV SCH ×2 (05:34→07:50)
[2020-07-12] MEDS: ASPIRIN 81 MG TABLET EC PO SCH (05:39)
[2020-07-12 05:40] LABS: ANION GAP 8 mmol/L (5-15); CALCIUM 8.1 mg/dL (8.5-10.1); CHLORIDE 106 mmol/L (98-107)
[2020-07-12 05:42] LABS: CREATININE 0.92 mg/dL (0.55-1.02)
[2020-07-12 06:16] LABS: OCCULT BLOOD NEGATIVE (NEGATIVE)
[2020-07-12] MEDS ORDERED: FERR325T18 PO (07:09)
[2020-07-12] MEDS ORDERED: OXYC1TAB14 PO ×2 (07:09→08:53)
[2020-07-12 07:28] VITALS: BP 118/71
[2020-07-12] MEDS: IRON SUCROSE COMPLEX 100MG/5ML IV SCH (07:50)
[2020-07-12] MEDS: NICOTINE 21 MG/24 HR PATCH.TD24 TD SCH (07:50)
[2020-07-12] MEDS: SENNA/DOCUSATE TABLET PO SCH (07:50)
[2020-07-12] MEDS: SODIUM CHLORIDE FLUSH 10ML SYR IVF SCH (07:51)
[2020-07-12] MEDS: GABAPENTIN 300 MG CAPSULE PO SCH (07:51)
[2020-07-12] MEDS: PANTOPRAZOLE 40MG TABLET PO SCH (07:51)
[2020-07-12] MEDS: CLOPIDOGREL 75 MG TABLET PO SCH (07:51)
[2020-07-12] MEDS: LISINOPRIL 5 MG TABLET PO SCH (07:51)
[2020-07-12] MEDS: OXYcodone/APAP 5/325MG TABLET PO PRN (08:08)
== END 2020-07-12 09:30 | disposition home or self-care (01) | DRG 286 ==
LOC: ED 16:00 → EDIP 18:26 → 5SO 21:35 → DCLOUNGE 07-12 09:20
PROVIDERS: ADMIT Family Medicine; ATTEND Internal Medicine
PROC: 4A023N7 Measurement of Cardiac Sampling and Pressure, Left Heart, Percutaneous Approach (ICD-10-PCS; principal; 2020-07-12)
PROC: B2111ZZ Fluoroscopy of Multiple Coronary Arteries using Low Osmolar Contrast (ICD-10-PCS; 2020-07-12)
PROC: B2151ZZ Fluoroscopy of Left Heart using Low Osmolar Contrast (ICD-10-PCS; 2020-07-12)
DX: I20.8 Other forms of angina pectoris (principal); E10.10 Type 1 diabetes mellitus with ketoacidosis without coma; E87.1 Hypo-osmolality and hyponatremia; N17.9 Acute kidney failure, unspecified; D50.9 Iron deficiency anemia, unspecified; E78.5 Hyperlipidemia, unspecified; F12.90 Cannabis use, unspecified, uncomplicated; F17.210 Nicotine dependence, cigarettes, uncomplicated; F32.9 Major depressive disorder, single episode, unspecified; R79.89 Other specified abnormal findings of blood chemistry; F41.1 Generalized anxiety disorder; F43.10 Post-traumatic stress disorder, unspecified; I10 Essential (primary) hypertension; K21.9 Gastro-esophageal reflux disease without esophagitis; Z79.4 Long term (current) use of insulin; Z80.1 Family history of malignant neoplasm of trachea, bronchus and lung; Z82.49 Family history of ischemic heart disease and other diseases of the circulatory system; Z86.73 Personal history of transient ischemic attack (TIA), and cerebral infarction without residual deficits; Z90.49 Acquired absence of other specified parts of digestive tract
CPT/HCPCS: 71045; 80048; 80053; 80061; 81001; 82010; 82272; 82607; 82728; 82803; 82947; 82962; 83010; 83036; 83540; 83550; 83615; 83735; 83880; 84100; 84484; 85014; 85018; 85025; 85045; 87086; 93005; 93306; 96360; 96361; 96372; 99291; G0378; J0583; J1170; J1644; J1756; J2250; J3010; J1815; J2270; J7030; J7120

== ENCOUNTER 2020-09-03 07:30 | Inpatient (IN) | payer MEDICAID ==
[~2020-09-03] VITALS: Ht 157.5 cm; Wt 59.1 kg
[~2020-09-03 07:30] MED LIST changes: +FERR325T18 PO; +OXYC1TAB14 PO
--- NOTE | 2020-09-03 07:30 | NUR ---
PT KRISTY MONTANEZ FROM THE [facility] FOR HIGH BLOOD GLUCOSE. PT STATED SHE TOOK 14 UNITS AMALOG THIS MORNING AND HER BLOOD SUGAR KEPT RISING. PT STATED SHE DID NOT TAKE HER OTHER INSULIN SHE COULD NOT FIND A CLEAN NEEDLE. PT STATED SHE FEELS NAUSEOUS AND HAS BEEN VOMITING SINCE SHE WOKE UP THIS MORNING. PT GIVEN 4MG ZO[employer]AN [employer] MARKET[employer] INTERN. PT CHANGED INTO GOWN, MONITORS IN PLACE. COMFORT MEASURES PROVIDED.
[2020-09-03] MEDS ORDERED: LACTATED RINGERS 1,000 ML IVBOLUS ONE (08:00)
[2020-09-03] MEDS ORDERED: ONDANSETRON 2MG/ML, 2ML IVPush ONE (08:00)
[2020-09-03] MEDS ORDERED: ONDANSETRON 2MG/ML, 2ML ONE (08:05)
[2020-09-03 08:23] LABS: O2 FLOW ROOM AIR L/min; PH, VENOUS 7.259 pH (7.320-7.420)
[2020-09-03 08:26] LABS: BASOPHILS % (AUTO) 1 % (0-1); EOSINOPHILS % (AUTO) 2 % (1-7); LYMPHOCYTES % (AUTO) 16 % (22-44); MEAN CORPUSCULAR HEMOGLOBIN 27.1 pg (27.0-34.8); MEAN CORPUSCULAR HGB CONC 31.1 g/dL (32.4-35.8); MEAN PLATELET VOLUME 8.1 fL (7.4-10.4); MONOCYTES % (AUTO) 3 % (2-9); NEUTROPHILS % (AUTO) 78 % (42-75); PLATELET COUNT 485 x10^3/uL (130-400); RED BLOOD COUNT 4.71 x10^6/uL (3.82-5.3); RED CELL DISTRIBUTION WIDTH 25.6 % (9.6-15.2)
[2020-09-03] MEDS ORDERED: MORPHINE SULFATE 4 MG/ML, 1ML IVPush PRN (08:30)
[2020-09-03 08:36] LABS: ALANINE AMINOTRANSFERASE 16 U/L (12-78); ALBUMIN 3.3 g/dL (3.4-5.0); ANION GAP 21 mmol/L (5-15); CALCIUM 8.6 mg/dL (8.5-10.1); CHLORIDE 93 mmol/L (98-107); CREATININE 1.71 mg/dL (0.55-1.02)
--- NOTE | 2020-09-03 08:38 | NUR ---
PT AMBULATED TO BATHROOM WITH UPRIGHT STEADY GAIT. COMFORT MEASURES PROVIDED
[2020-09-03] MEDS ORDERED: MORPHINE SULFATE 4 MG/ML, 1ML ONE ×2 (08:39→09:18)
[2020-09-03 08:41] LABS: ALKALINE PHOSPHATASE 97 U/L (45-117); BILIRUBIN,TOTAL 0.5 mg/dL (0.2-1.0); TOTAL PROTEIN 6.9 g/dL (6.4-8.2)
[2020-09-03 08:49] LABS: <PLATELET ESTIMATE> INCREASED; <PLT MORPHOLOGY> NORMAL PLT MORPH; ANISOCYTOSIS 1+; HYPOCHROMIA 1+; MD MORPH REVIEW ONLY
[2020-09-03 08:54] LABS: ACETONE, SERUM Large (80mg/dL) (Negative)
[2020-09-03] MEDS: D5%-0.45NACL+KCL 20MEQ 1,000 ML IV SCH ×2 (09:00→12:39)
[2020-09-03] MEDS ORDERED: DOCUSATE 100 MG CAPSULE PO PRN (09:00)
[2020-09-03] MEDS ORDERED: ACETAMINOPHEN 325 MG TABLET PO PRN (09:00)
[2020-09-03] MEDS ORDERED: POLYETHYLENE GLYCOL 17 GM PACKET PO PRN (09:00)
[2020-09-03] MEDS ORDERED: BISACODYL 10 MG SUPP PR PRN (09:00)
[2020-09-03] MEDS ORDERED: REGULAR INSULIN 100 UNITS in SODIUM CHLORIDE 0.9% 99 ML IV PRN (09:00)
[2020-09-03] MEDS ORDERED: ENALAPRILAT 1.25 MG/ML, 2ML IVPush PRN (09:00)
[2020-09-03] MEDS ORDERED: LABETALOL 5MG/ML, 20ML IVPush PRN (09:00)
[2020-09-03] MEDS ORDERED: SODIUM CHLORIDE 0.9% 1,000 ML IV SCH (09:00)
[2020-09-03] MEDS ORDERED: OXYcodone IR 5MG TABLET ONE (09:22)
[2020-09-03] MEDS: OXYcodone IR 5MG TABLET PO PRN ×3 (09:24→21:47)
--- NOTE | 2020-09-03 09:37 | NUR ---
Pt to be admitted to CCU, room 549. Report called to JOSSELINE.
[2020-09-03 11:14] LABS: MICROSCOPIC AUTO
[2020-09-03 11:26] VITALS: BP 117/62
[2020-09-03] MEDS: HEPARIN 5,000 UNITS/ML, 1ML SQ SCH ×2 (13:10→21:00)
[2020-09-03] MEDS: NICOTINE 21 MG/24 HR PATCH.TD24 TD SCH (13:11)
[2020-09-03 13:44] LABS: AMPHETAMINE SCREEN, URINE Negative (Negative); BARBITURATE SCREEN, URINE Negative (Negative); BENZODIAZEPINE SCREEN, URINE Negative (Negative); CANNABINOID SCREEN, URINE Positive (Negative); COCAINE SCREEN, URINE Negative (Negative); METHADONE SCREEN, URINE Negative (Negative); OPIATE SCREEN, URINE Positive (Negative)
[2020-09-03 15:15] LABS: ANION GAP 3 mmol/L (5-15); CALCIUM 8.3 mg/dL (8.5-10.1); CHLORIDE 103 mmol/L (98-107)
[2020-09-03 15:16] LABS: CREATININE 1.01 mg/dL (0.55-1.02)
[2020-09-03] MEDS: INSULIN LISPRO 100 UNITS/ML, PEN SQ-INSULIN SCH ×2 (16:29→21:48)
[2020-09-03] MEDS: INSULIN GLARGINE 100 UNITS/ML, PEN SQ-INSULIN SCH ×2 (17:36→21:48)
[2020-09-03] MEDS: DIPHENHYDRAMINE 25 MG CAPSULE PO PRN (21:47)
[2020-09-03] MEDS: ONDANSETRON 2MG/ML, 2ML IV PRN (21:47)
[2020-09-04 00:46] VITALS: BP 113/63
[2020-09-04] MEDS: DIPHENHYDRAMINE 25 MG CAPSULE PO PRN (03:13)
[2020-09-04] MEDS: OXYcodone IR 5MG TABLET PO PRN (03:27)
[2020-09-04] MEDS: ONDANSETRON 2MG/ML, 2ML IV PRN (03:27)
[2020-09-04] MEDS: HEPARIN 5,000 UNITS/ML, 1ML SQ SCH (04:45)
[2020-09-04 05:59] LABS: BASOPHILS % (AUTO) 2 % (0-1); EOSINOPHILS % (AUTO) 7 % (1-7); LYMPHOCYTES % (AUTO) 41 % (22-44); MEAN CORPUSCULAR HEMOGLOBIN 27.6 pg (27.0-34.8); MEAN CORPUSCULAR HGB CONC 32.8 g/dL (32.4-35.8); MONOCYTES % (AUTO) 6 % (2-9); NEUTROPHILS % (AUTO) 45 % (42-75); PLATELET COUNT 393 x10^3/uL (130-400); RED BLOOD COUNT 4.15 x10^6/uL (3.82-5.3); RED CELL DISTRIBUTION WIDTH 25.7 % (9.6-15.2)
[2020-09-04] MEDS: INSULIN GLARGINE 100 UNITS/ML, PEN SQ-INSULIN SCH (06:00)
[2020-09-04 06:15] LABS: CHLORIDE 105 mmol/L (98-107)
[2020-09-04 06:23] LABS: ANION GAP 7 mmol/L (5-15); CALCIUM 8.5 mg/dL (8.5-10.1); CREATININE 1.01 mg/dL (0.55-1.02)
[2020-09-04 06:40] LABS: MD MORPH REVIEW ONLY; OVALOCYTES 1+; TEAR DROPS 1+
[2020-09-04 06:41] LABS: <PLATELET ESTIMATE> INCREASED; <PLT MORPHOLOGY> NORMAL PLT MORPH
[2020-09-04] MEDS: INSULIN LISPRO 100 UNITS/ML, PEN SQ-INSULIN SCH (07:00)
[2020-09-04] MEDS ORDERED: DIPHENHYDRAMINE 25 MG CAPSULE PO PRN (07:30)
[2020-09-04 07:32] VITALS: BP 130/88
[2020-09-04] MEDS: NICOTINE 21 MG/24 HR PATCH.TD24 TD SCH (09:51)
== END 2020-09-04 11:08 | disposition home or self-care (01) | DRG 637 ==
LOC: ED 08:25 → EDIP 09:39 → CCU 09:45 → 3N 17:59 → DCLOUNGE 09-04 11:02
PROVIDERS: ADMIT Internal Medicine; ATTEND Internal Medicine
PROC: 0T9B70Z Drainage of Bladder with Drainage Device, Via Natural or Artificial Opening (ICD-10-PCS; principal; 2020-09-03)
DX: E10.10 Type 1 diabetes mellitus with ketoacidosis without coma (principal); N17.0 Acute kidney failure with tubular necrosis; E78.5 Hyperlipidemia, unspecified; F12.90 Cannabis use, unspecified, uncomplicated; F15.90 Other stimulant use, unspecified, uncomplicated; D72.828 Other elevated white blood cell count; F17.200 Nicotine dependence, unspecified, uncomplicated; F43.10 Post-traumatic stress disorder, unspecified; K21.9 Gastro-esophageal reflux disease without esophagitis; G62.9 Polyneuropathy, unspecified; F41.9 Anxiety disorder, unspecified; G89.29 Other chronic pain; I10 Essential (primary) hypertension; Z80.1 Family history of malignant neoplasm of trachea, bronchus and lung; Z82.49 Family history of ischemic heart disease and other diseases of the circulatory system; Z86.73 Personal history of transient ischemic attack (TIA), and cerebral infarction without residual deficits; Z87.19 Personal history of other diseases of the digestive system; Z91.19 Patient's noncompliance with other medical treatment and regimen; Z90.49 Acquired absence of other specified parts of digestive tract
CPT/HCPCS: 36415; 71045; 80048; 80053; 80307; 81001; 82010; 82803; 82947; 82962; 83690; 83735; 83930; 84100; 84703; 85025; 87040; 87081; 96374; 96375; G0378; J2405; J1815; J2270; J3480; J7030; J7120; Q0163

== ENCOUNTER 2020-10-02 22:46 | Inpatient (IN) | payer MEDICAID ==
[~2020-10-02] VITALS: Ht 157.5 cm; Wt 55.2 kg
[~2020-10-02 22:46] MED LIST changes: -HYDR-1067 PO; +HYDR-2214 PO; +OXYC1TAB12 PO; -OXYC1TAB14 PO
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
[2020-10-02] MEDS ORDERED: SODIUM CHLORIDE 0.9% 1,000ML IVBOLUS ONE (23:00)
[2020-10-02 23:13] LABS: PH, VENOUS 7.425 pH (7.320-7.420)
[2020-10-02 23:14] LABS: FIO2 ROOM AIR %
[2020-10-02 23:24] LABS: BASOPHILS % (AUTO) 1 % (0-1); EOSINOPHILS % (AUTO) 2 % (1-7); LYMPHOCYTES % (AUTO) 28 % (22-44); MEAN CORPUSCULAR HEMOGLOBIN 29.3 pg (27.0-34.8); MEAN CORPUSCULAR HGB CONC 33.8 g/dL (32.4-35.8); MEAN PLATELET VOLUME 8.3 fL (7.4-10.4); MONOCYTES % (AUTO) 7 % (2-9); NEUTROPHILS % (AUTO) 62 % (42-75); PLATELET COUNT 578 x10^3/uL (130-400); RED BLOOD COUNT 4.89 x10^6/uL (3.82-5.3); RED CELL DISTRIBUTION WIDTH 18.1 % (9.6-15.2)
[2020-10-02 23:25] LABS: ALBUMIN 3.7 g/dL (3.4-5.0); ANION GAP 15 mmol/L (5-15); CALCIUM 9.6 mg/dL (8.5-10.1); CHLORIDE 97 mmol/L (98-107); CREATININE 1.67 mg/dL (0.55-1.02)
[2020-10-02 23:39] LABS: MICROSCOPIC AUTO
[2020-10-02 23:44] LABS: ACETONE, SERUM Large (80mg/dL) (Negative)
[2020-10-03] MEDS ORDERED: INSULIN REGULAR 100 UNITS/ML, 3ML VIAL SQ-INSULIN ONE
[2020-10-03] MEDS ORDERED: INSULIN LISPRO 100 UNITS/ML, PEN ONE (00:01)
[2020-10-03 00:07] LABS: <PLATELET ESTIMATE> INCREASED; ANISOCYTOSIS 1+; HYPOCHROMIA 1+; LARGE PLATELETS 1+; POLYCHROMASIA 1+
[2020-10-03] MEDS: SODIUM CHLORIDE 0.9% 1,000 ML IV SCH ×4 (00:27→12:29)
[2020-10-03] MEDS ORDERED: HYDROcodone/APAP 5/325 TABLET PO STA (00:35)
--- NOTE | 2020-10-03 00:43 | NUR ---
report to [facility] patient rtg. she is aox4, multiple requests (mouth swabs, ice chips, unhook things/rehook things, position) and anxious. patient belongings all with patient.
[2020-10-03] MEDS: HEPARIN 5,000 UNITS/ML, 1ML SQ SCH ×2 (01:00→09:24)
[2020-10-03] MEDS ORDERED: POLYETHYLENE GLYCOL 17 GM PACKET PO PRN (01:00)
[2020-10-03] MEDS ORDERED: ACETAMINOPHEN 325 MG TABLET PO PRN (01:00)
[2020-10-03] MEDS ORDERED: ONDANSETRON 2MG/ML, 2ML IVPush PRN (01:00)
[2020-10-03] MEDS ORDERED: BISACODYL 10 MG SUPP PR PRN (01:00)
[2020-10-03 01:20] VITALS: BP 151/69
[2020-10-03] MEDS: INSULIN LISPRO 100 UNITS/ML, PEN SQ-INSULIN SCH ×4 (02:29→14:35)
[2020-10-03] MEDS ORDERED: ZOLP-413 PO (03:39)
[2020-10-03] MEDS ORDERED: SULF-23 PO (03:39)
[2020-10-03] MEDS ORDERED: LORA-445 PO (03:39)
[2020-10-03] MEDS ORDERED: LACT1CAP3 PO (03:39)
[2020-10-03] MEDS ORDERED: ATOM40CA7 PO (03:39)
[2020-10-03] MEDS ORDERED: LORazepam 0.5MG TABLET PO PRN (04:00)
[2020-10-03] MEDS ORDERED: OXYcodone IR 5MG TABLET PO ONE (06:00)
[2020-10-03 06:46] LABS: ANION GAP 10 mmol/L (5-15); CALCIUM 8.2 mg/dL (8.5-10.1); CHLORIDE 104 mmol/L (98-107); CREATININE 1.27 mg/dL (0.55-1.02)
[2020-10-03 07:16] VITALS: BP 115/74
[2020-10-03 07:19] LABS: BASOPHILS % (AUTO) 2 % (0-1); EOSINOPHILS % (AUTO) 3 % (1-7); LYMPHOCYTES % (AUTO) 34 % (22-44); MEAN CORPUSCULAR HEMOGLOBIN 29.5 pg (27.0-34.8); MEAN CORPUSCULAR HGB CONC 34.3 g/dL (32.4-35.8); MEAN PLATELET VOLUME 7.8 fL (7.4-10.4); MONOCYTES % (AUTO) 8 % (2-9); NEUTROPHILS % (AUTO) 54 % (42-75); PLATELET COUNT 428 x10^3/uL (130-400); RED BLOOD COUNT 3.99 x10^6/uL (3.82-5.3); RED CELL DISTRIBUTION WIDTH 18.4 % (9.6-15.2)
[2020-10-03] MEDS ORDERED: FERROUS SULFATE 325 MG TABLET PO SCH (08:00)
[2020-10-03] MEDS ORDERED: PANTOPRAZOLE 40MG TABLET PO SCH (09:00)
[2020-10-03] MEDS ORDERED: INSULIN GLARGINE 100 UNITS/ML, PEN SQ-INSULIN SCH (09:00)
[2020-10-03] MEDS ORDERED: CLOPIDOGREL 75 MG TABLET PO SCH (09:00)
[2020-10-03] MEDS ORDERED: LISINOPRIL 5 MG TABLET PO SCH (09:00)
[2020-10-03] MEDS ORDERED: SULFAMETH./TRIMETHOPRIM DS 800MG/160MG TABLET PO SCH (09:00)
[2020-10-03] MEDS ORDERED: SENNA/DOCUSATE TABLET PO SCH (09:00)
[2020-10-03] MEDS: GABAPENTIN 300 MG CAPSULE PO SCH ×2 (09:16→16:00)
[2020-10-03] MEDS: OXYcodone IR 5MG TABLET PO PRN ×2 (09:16→13:18)
[2020-10-03 12:26] VITALS: BP 119/68
[2020-10-03] MEDS ORDERED: NICOTINE 21 MG/24 HR PATCH.TD24 TD SCH (13:30)
[2020-10-03] MEDS ORDERED: QUET25TA7 PO (16:02)
[2020-10-03] MEDS ORDERED: DULO60CA7 PO (16:02)
[2020-10-03] MEDS ORDERED: FERR325T18 PO ×2 (16:02)
[2020-10-03] MEDS ORDERED: PANT40TA6 PO (16:02)
[2020-10-03] MEDS ORDERED: INSU100I11 SQ-INSULIN (16:02)
[2020-10-03] MEDS ORDERED: INSU100I13 SQ-INSULIN ×2 (16:02)
[2020-10-03] MEDS ORDERED: CLOP75TA PO (16:02)
[2020-10-03] MEDS ORDERED: LISI5TAB7 PO (16:02)
[2020-10-03] MEDS ORDERED: GABA600T7 PO (16:02)
[2020-10-03] MEDS ORDERED: QUETIAPINE 25MG TABLET PO SCH (21:00)
[2020-10-03] MEDS ORDERED: DULOXETINE 30 MG CAPSULE.DR PO SCH (21:00)
[2020-10-20] MEDS ORDERED: INSU100I11 SQ-INSULIN ×2 (08:59)
[2020-10-20] MEDS ORDERED: INSU100I34 SC ×2 (08:59)
== END 2020-10-03 16:48 | disposition home or self-care (01) | DRG 638 ==
LOC: ED 22:55 → EDIP 10-03 00:45 → 4EST 10-03 01:00 → DCLOUNGE 10-03 16:34
PROVIDERS: ADMIT Internal Medicine; ATTEND Internal Medicine
DX: E10.10 Type 1 diabetes mellitus with ketoacidosis without coma (principal); E87.1 Hypo-osmolality and hyponatremia; E10.40 Type 1 diabetes mellitus with diabetic neuropathy, unspecified; E78.5 Hyperlipidemia, unspecified; E86.0 Dehydration; F17.200 Nicotine dependence, unspecified, uncomplicated; F43.10 Post-traumatic stress disorder, unspecified; I10 Essential (primary) hypertension; K21.9 Gastro-esophageal reflux disease without esophagitis; N28.9 Disorder of kidney and ureter, unspecified; Z79.4 Long term (current) use of insulin; Z86.73 Personal history of transient ischemic attack (TIA), and cerebral infarction without residual deficits; Z87.19 Personal history of other diseases of the digestive system; Z91.19 Patient's noncompliance with other medical treatment and regimen; F12.10 Cannabis abuse, uncomplicated; F32.9 Major depressive disorder, single episode, unspecified; G89.29 Other chronic pain; D47.3 Essential (hemorrhagic) thrombocythemia; F15.10 Other stimulant abuse, uncomplicated; Z90.49 Acquired absence of other specified parts of digestive tract
CPT/HCPCS: 36415; 71045; 80048; 81001; 82010; 82040; 82803; 82962; 83036; 85014; 85018; 85025; 93005; 96360; 99291; J1644; J1815; J7030

== ENCOUNTER 2020-10-18 14:48 | Inpatient (IN) | payer MEDICAID ==
[~2020-10-18] VITALS: Ht 157.5 cm; Wt 58.5 kg
[~2020-10-18 14:48] MED LIST changes: +ATOM40CA7 PO; +LACT1CAP3 PO; -OXYC1TAB12 PO; +OXYC1TAB14 PO; +SULF-23 PO; +ZOLP-413 PO
--- NOTE | 2020-10-18 15:08 | NUR ---
BIB [facility] W/ C/O OF N/V AND GENERALIZED BODY ACHE STARTING LAST NIGHT. PT HX OF DM AND WAS HERE PREVIOUSLY FOR DKA AND FELT SIMILAR TO THAT. [facility] BLOOD SUGAR READ "HIGH". ZOFRAN ADMINSTERED, PT REFUSED IV SHE REPORTS SHE NEEDS IV GUIDE IV. PT AMBULATORY, STEADY GAIT. ALERT AND ORIENTED X4. PT WALKED TO BATHROOM AND BACK W/O INCIDENT. PT VSS, PLACED ON MONITOR. JACK. CAROLYNN BEDSIDE. CALL LIGHT W/IN REACH. SIDE RAIL UPX2. LAB IS BEDSIDE NOW
[2020-10-18] MEDS ORDERED: SODIUM CHLORIDE FLUSH 10ML SYR IVF ONE (15:30)
[2020-10-18] MEDS ORDERED: ONDANSETRON 2MG/ML, 2ML IVPush ONE (15:30)
[2020-10-18] MEDS ORDERED: SODIUM CHLORIDE 0.9% 1,000ML IVBOLUS ONE ×2 (15:30→16:00)
[2020-10-18 15:34] LABS: BASOPHILS % (AUTO) 1 % (0-1); EOSINOPHILS % (AUTO) 1 % (1-7); LYMPHOCYTES % (AUTO) 19 % (22-44); MEAN CORPUSCULAR HEMOGLOBIN 29.3 pg (27.0-34.8); MEAN CORPUSCULAR HGB CONC 31.5 g/dL (32.4-35.8); MEAN PLATELET VOLUME 8.5 fL (7.4-10.4); MONOCYTES % (AUTO) 5 % (2-9); NEUTROPHILS % (AUTO) 73 % (42-75); PLATELET COUNT 436 x10^3/uL (130-400); RED BLOOD COUNT 4.57 x10^6/uL (3.82-5.3); RED CELL DISTRIBUTION WIDTH 14.8 % (9.6-15.2)
[2020-10-18 15:35] LABS: MD NO
[2020-10-18 15:37] LABS: MICROSCOPIC AUTO
--- NOTE | 2020-10-18 15:40 | NUR ---
SBAR REPORT GIVEN TO LIEN. PT IS A&OX4, VSS, NADN. CALL LIGHT W/IN REACH.
[2020-10-18 15:41] LABS: ALANINE AMINOTRANSFERASE 73 U/L (12-78); ALBUMIN 3.8 g/dL (3.4-5.0); ANION GAP 19 mmol/L (5-15); CALCIUM 9.4 mg/dL (8.5-10.1); CHLORIDE 78 mmol/L (98-107); CREATININE 1.48 mg/dL (0.55-1.02)
--- NOTE | 2020-10-18 15:41 | NUR ---
Report from KATERINA Velazquez. Working to obtain IV access.Pt awake and alert, JACK.
[2020-10-18 15:46] LABS: ALKALINE PHOSPHATASE 157 U/L (45-117); BILIRUBIN,TOTAL 1.5 mg/dL (0.2-1.0); TOTAL PROTEIN 7.6 g/dL (6.4-8.2)
[2020-10-18 15:55] LABS: ACETONE, SERUM Large (80mg/dL) (Negative)
[2020-10-18] MEDS ORDERED: INSULIN REGULAR 100 UNITS/ML, 3ML VIAL IVPush ONE (16:00)
[2020-10-18] MEDS ORDERED: INSULIN SINGLE DOSE, ER ONE (16:03)
[2020-10-18] MEDS ORDERED: ONDANSETRON 2MG/ML, 2ML ONE (16:04)
[2020-10-18] MEDS ORDERED: SODIUM CHLORIDE 0.9% 1,000 ML IV SCH (16:30)
[2020-10-18] MEDS ORDERED: METOCLOPRAMIDE 5 MG/ML, 2ML IVPush PRN (16:30)
[2020-10-18] MEDS ORDERED: KETOROLAC 30 MG/1 ML IVPush ONE (16:30)
[2020-10-18] MEDS ORDERED: DICYCLOMINE 10 MG/ML, 2ML IM ONE (16:30)
[2020-10-18] MEDS ORDERED: DOCUSATE 100 MG CAPSULE PO PRN (16:30)
[2020-10-18] MEDS ORDERED: ONDANSETRON 2MG/ML, 2ML IVPush PRN (16:30)
[2020-10-18] MEDS ORDERED: ONDANSETRON ODT 4 MG PO PRN (16:30)
[2020-10-18] MEDS ORDERED: ENALAPRILAT 1.25 MG/ML, 2ML IVPush PRN (16:30)
[2020-10-18] MEDS ORDERED: PROMETHAZINE 25 MG/ML, 1ML IM PRN (16:30)
[2020-10-18] MEDS ORDERED: HEPARIN 5,000 UNITS/ML, 1ML ONE (16:54)
[2020-10-18] MEDS ORDERED: KETOROLAC 30 MG/1 ML ONE (16:55)
--- NOTE | 2020-10-18 16:55 | NUR ---
Pt up to bedside commode, unassited.
[2020-10-18] MEDS ORDERED: GLUCAGON 1 MG IM PRN (17:00)
[2020-10-18] MEDS ORDERED: DEXTROSE 4 GM TAB.CHEW PO PRN (17:00)
[2020-10-18] MEDS: HEPARIN 5,000 UNITS/ML, 1ML SQ SCH (17:11)
--- NOTE | 2020-10-18 18:34 | NUR ---
Pt refused second IV.
[2020-10-18 19:03] LABS: ANION GAP 12 mmol/L (5-15); CALCIUM 8.7 mg/dL (8.5-10.1); CHLORIDE 95 mmol/L (98-107); CREATININE 1.33 mg/dL (0.55-1.02)
[2020-10-18] MEDS: INSULIN LISPRO 100 UNITS/ML, PEN SQ-INSULIN SCH ×2 (19:23→23:30)
[2020-10-18] MEDS: SODIUM CHLORIDE FLUSH 10ML SYR IVF SCH (19:45)
[2020-10-18 20:16] VITALS: BP 110/71
[2020-10-18] MEDS: ACETAMINOPHEN 325 MG TABLET PO PRN (20:35)
[2020-10-18] MEDS: GABAPENTIN 300 MG CAPSULE PO PRN (20:37)
[2020-10-18] MEDS: QUETIAPINE 25MG TABLET PO SCH (20:37)
[2020-10-18] MEDS: LORazepam 2 MG/ML, 1ML IVPush PRN (20:37)
[2020-10-18] MEDS ORDERED: INSULIN LISPRO 100 UNITS/ML, PEN SQ-INSULIN SCH ×2 (21:00→22:30)
[2020-10-18] MEDS ORDERED: ZOLPIDEM 5MG TABLET PO PRN (21:00)
[2020-10-18] MEDS: INSULIN GLARGINE 100 UNITS/ML, PEN SQ-INSULIN SCH (21:42)
[2020-10-18 22:26] LABS: ANION GAP 7 mmol/L (5-15); CALCIUM 8.3 mg/dL (8.5-10.1); CHLORIDE 104 mmol/L (98-107); CREATININE 1.14 mg/dL (0.55-1.02)
[2020-10-18] MEDS ORDERED: NICOTINE 14MG/24 HR PATCH.TD24 TD SCH (23:30)
[2020-10-18] MEDS: DEXTROSE 50%, 50ML SYRINGE IVPush PRN (23:47)
[2020-10-19] MEDS ORDERED: SODIUM CHLORIDE 0.9% 1,000 ML IV SCH
[2020-10-19 00:11] VITALS: BP 113/60
[2020-10-19] MEDS: NICOTINE 14MG/24 HR PATCH.TD24 TD SCH ×2 (00:42→23:34)
[2020-10-19] MEDS: HEPARIN 5,000 UNITS/ML, 1ML SQ SCH ×4 (00:42→23:50)
[2020-10-19 02:49] LABS: ANION GAP 7 mmol/L (5-15); CALCIUM 8.5 mg/dL (8.5-10.1); CHLORIDE 104 mmol/L (98-107); CREATININE 1.15 mg/dL (0.55-1.02)
[2020-10-19 02:52] LABS: BASOPHILS % (AUTO) 1 % (0-1); EOSINOPHILS % (AUTO) 4 % (1-7); LYMPHOCYTES % (AUTO) 44 % (22-44); MEAN CORPUSCULAR HEMOGLOBIN 29.6 pg (27.0-34.8); MEAN CORPUSCULAR HGB CONC 33.6 g/dL (32.4-35.8); MEAN PLATELET VOLUME 7.7 fL (7.4-10.4); MONOCYTES % (AUTO) 7 % (2-9); NEUTROPHILS % (AUTO) 44 % (42-75); PLATELET COUNT 438 x10^3/uL (130-400); RED BLOOD COUNT 4.19 x10^6/uL (3.82-5.3); RED CELL DISTRIBUTION WIDTH 14.5 % (9.6-15.2)
[2020-10-19 02:54] LABS: MD NO
[2020-10-19] MEDS: INSULIN LISPRO 100 UNITS/ML, PEN SQ-INSULIN SCH ×6 (03:30→23:49)
[2020-10-19 06:49] LABS: ANION GAP 10 mmol/L (5-15); CALCIUM 8.1 mg/dL (8.5-10.1); CHLORIDE 99 mmol/L (98-107)
[2020-10-19 06:51] LABS: CREATININE 1.33 mg/dL (0.55-1.02)
[2020-10-19] MEDS: INSULIN GLARGINE 100 UNITS/ML, PEN SQ-INSULIN SCH ×2 (07:52→21:37)
[2020-10-19] MEDS: PANTOPRAZOLE 40MG TABLET PO SCH (07:56)
[2020-10-19] MEDS: LISINOPRIL 5 MG TABLET PO SCH (07:56)
[2020-10-19] MEDS: SODIUM CHLORIDE FLUSH 10ML SYR IVF SCH ×2 (07:57→21:36)
[2020-10-19 09:10] VITALS: BP 106/69
[2020-10-19] MEDS: DEXTROSE 50%, 50ML SYRINGE IVPush PRN (10:58)
[2020-10-19 11:08] LABS: ANION GAP 4 mmol/L (5-15); CALCIUM 9.8 mg/dL (8.5-10.1); CHLORIDE 106 mmol/L (98-107); CREATININE 1.03 mg/dL (0.55-1.02)
[2020-10-19] MEDS: LORazepam 2 MG/ML, 1ML IVPush PRN ×2 (11:42→22:25)
[2020-10-19] MEDS: ACETAMINOPHEN 325 MG TABLET PO PRN ×2 (11:42→23:34)
[2020-10-19 14:38] LABS: ANION GAP 7 mmol/L (5-15); CALCIUM 8.8 mg/dL (8.5-10.1); CHLORIDE 102 mmol/L (98-107)
[2020-10-19 14:39] LABS: CREATININE 1.18 mg/dL (0.55-1.02)
[2020-10-19 15:00] VITALS: BP 106/69
[2020-10-19 18:42] LABS: ANION GAP 6 mmol/L (5-15); CALCIUM 9.2 mg/dL (8.5-10.1); CHLORIDE 105 mmol/L (98-107); CREATININE 0.96 mg/dL (0.55-1.02)
[2020-10-19 20:25] VITALS: BP 113/71
[2020-10-19] MEDS: QUETIAPINE 25MG TABLET PO SCH (22:25)
[2020-10-19 22:49] LABS: ANION GAP 3 mmol/L (5-15); CALCIUM 8.6 mg/dL (8.5-10.1); CHLORIDE 99 mmol/L (98-107); CREATININE 1.38 mg/dL (0.55-1.02)
[2020-10-19] MEDS: GABAPENTIN 300 MG CAPSULE PO PRN (23:33)
[2020-10-19] MEDS ORDERED: NICOTINE 21 MG/24 HR PATCH.TD24 ONE (23:43)
[2020-10-20] MEDS ORDERED: NICOTINE 21 MG/24 HR PATCH.TD24 TD SCH
[2020-10-20 02:35] VITALS: BP 127/74
[2020-10-20] MEDS: DEXTROSE 50%, 50ML SYRINGE IVPush PRN (03:07)
[2020-10-20 06:51] VITALS: BP 132/85
[2020-10-20 08:41] LABS: ANION GAP 5 mmol/L (5-15); CALCIUM 8.6 mg/dL (8.5-10.1); CHLORIDE 103 mmol/L (98-107); CREATININE 1.02 mg/dL (0.55-1.02)
[2020-10-20] MEDS ORDERED: INSU100I34 SC (08:59)
[2020-10-20] MEDS ORDERED: INSU100I13 SQ-INSULIN (08:59)
[2020-10-20] MEDS ORDERED: INSU100I11 SQ-INSULIN (08:59)
[2020-10-20] MEDS: LISINOPRIL 5 MG TABLET PO SCH (09:00)
[2020-10-20] MEDS: HEPARIN 5,000 UNITS/ML, 1ML SQ SCH (09:00)
[2020-10-20 09:39] VITALS: BP 119/68
[2020-10-20] MEDS: PANTOPRAZOLE 40MG TABLET PO SCH (09:39)
[2020-10-20] MEDS: INSULIN GLARGINE 100 UNITS/ML, PEN SQ-INSULIN SCH (09:40)
[2020-10-20] MEDS: INSULIN LISPRO 100 UNITS/ML, PEN SQ-INSULIN SCH ×2 (09:41→12:47)
[2020-10-20] MEDS: SODIUM CHLORIDE FLUSH 10ML SYR IVF SCH (09:41)
[2020-10-20] MEDS: LORazepam 2 MG/ML, 1ML IVPush PRN (11:01)
[2020-10-20 12:44] VITALS: BP 123/77
[2020-10-20] MEDS: ACETAMINOPHEN 325 MG TABLET PO PRN (13:37)
== END 2020-10-20 15:10 | disposition home or self-care (01) | DRG 637 ==
LOC: ED 16:03 → EDIP 16:14 → SUATTDRO 16:26 → 5SO 18:48 → DCLOUNGE 10-20 14:56
PROVIDERS: ADMIT Hospitalist; ATTEND Hospitalist
DX: E11.10 Type 2 diabetes mellitus with ketoacidosis without coma (principal); N17.0 Acute kidney failure with tubular necrosis; E86.0 Dehydration; I10 Essential (primary) hypertension; F43.10 Post-traumatic stress disorder, unspecified; F41.1 Generalized anxiety disorder; F15.10 Other stimulant abuse, uncomplicated; E11.65 Type 2 diabetes mellitus with hyperglycemia; Z79.4 Long term (current) use of insulin; Z86.73 Personal history of transient ischemic attack (TIA), and cerebral infarction without residual deficits; Z91.19 Patient's noncompliance with other medical treatment and regimen
CPT/HCPCS: 36415; 80048; 80053; 81001; 82010; 82800; 82962; 83690; 84703; 85025; 93005; 99285; G0378; J1644; J1885; J2405; J1815; J2060; J7030

== ENCOUNTER 2020-10-30 14:54 | Inpatient (IN) | payer MEDICAID ==
[~2020-10-30] VITALS: Ht 157.5 cm; Wt 55.0 kg
[~2020-10-30 14:54] MED LIST changes: +INSU100I34 SC
[2020-10-30] MEDS ORDERED: TIZANIDINE 4MG TABLET PO SCH (15:30)
[2020-10-30] MEDS ORDERED: SODIUM CHLORIDE 0.9% 1,000ML IVBOLUS ONE (15:30)
[2020-10-30 15:45] LABS: FIO2 ROOM AIR %; PH, VENOUS 7.523 pH (7.320-7.420)
[2020-10-30 15:52] LABS: BASOPHILS % (AUTO) 1 % (0-1); EOSINOPHILS % (AUTO) 1 % (1-7); LYMPHOCYTES % (AUTO) 19 % (22-44); MEAN CORPUSCULAR HEMOGLOBIN 29.8 pg (27.0-34.8); MEAN CORPUSCULAR HGB CONC 32.5 g/dL (32.4-35.8); MEAN PLATELET VOLUME 8.7 fL (7.4-10.4); MONOCYTES % (AUTO) 5 % (2-9); NEUTROPHILS % (AUTO) 74 % (42-75); PLATELET COUNT 481 x10^3/uL (130-400); RED BLOOD COUNT 4.26 x10^6/uL (3.82-5.3); RED CELL DISTRIBUTION WIDTH 14.3 % (9.6-15.2)
[2020-10-30 15:56] LABS: MD NO
[2020-10-30 15:58] LABS: ALANINE AMINOTRANSFERASE 35 U/L (12-78); ALBUMIN 3.1 g/dL (3.4-5.0); ANION GAP 16 mmol/L (5-15); CALCIUM 8.9 mg/dL (8.5-10.1); CHLORIDE 90 mmol/L (98-107); CREATININE 1.65 mg/dL (0.55-1.02)
[2020-10-30 16:00] LABS: ALKALINE PHOSPHATASE 139 U/L (45-117); BILIRUBIN,TOTAL 0.9 mg/dL (0.2-1.0)
[2020-10-30 16:10] LABS: ACETONE, SERUM Large (80mg/dL) (Negative)
[2020-10-30] MEDS ORDERED: SODIUM CHLORIDE 0.9% 1,000 ML IV ONE (16:30)
[2020-10-30] MEDS ORDERED: INSULIN REGULAR 100 UNITS/ML, 3ML VIAL SQ-INSULIN SCH (16:30)
[2020-10-30] MEDS ORDERED: INSULIN SINGLE DOSE, ER ONE (16:39)
[2020-10-30] MEDS ORDERED: INSULIN REGULAR 100 UNITS/ML, 3ML VIAL SQ-INSULIN ONE (17:00)
[2020-10-30 18:23] LABS: MICROSCOPIC INDICATED
[2020-10-30] MEDS: D5%-0.45NACL+KCL 20MEQ 1,000 ML IV SCH ×2 (18:30→22:12)
[2020-10-30] MEDS ORDERED: hydrALAzine 20 MG/ML, 1ML IVPush PRN (18:30)
[2020-10-30] MEDS ORDERED: BISACODYL 10 MG SUPP PR PRN (18:30)
[2020-10-30] MEDS ORDERED: SODIUM CHLORIDE 0.9% 1,000 ML IV SCH (18:30)
[2020-10-30] MEDS ORDERED: PROMETHAZINE 25 MG/ML, 1ML IM PRN (18:30)
[2020-10-30] MEDS ORDERED: HEPARIN 5,000 UNITS/ML, 1ML SQ SCH (18:30)
[2020-10-30 18:42] VITALS: BP 138/86
[2020-10-30 19:08] LABS: ANION GAP 14 mmol/L (5-15); CALCIUM 8.5 mg/dL (8.5-10.1); CHLORIDE 98 mmol/L (98-107); CREATININE 1.66 mg/dL (0.55-1.02)
[2020-10-30] MEDS ORDERED: ACETAMINOPHEN 325 MG TABLET PO PRN (19:30)
[2020-10-30] MEDS ORDERED: NICOTINE 21 MG/24 HR PATCH.TD24 TD ONE (19:30)
[2020-10-30] MEDS ORDERED: BENZOCAINE/MENTHOL CAN TP PRN (20:00)
[2020-10-30] MEDS: OXYcodone IR 5MG TABLET PO PRN (20:45)
[2020-10-30 20:57] LABS: HCG UR SG 1.035 (1.003-1.030)
[2020-10-30] MEDS ORDERED: INSULIN LISPRO 100 UNITS/ML, PEN SQ-INSULIN SCH ×2 (21:00)
[2020-10-30] MEDS ORDERED: LORazepam 0.5MG TABLET PO PRN (21:00)
[2020-10-30 21:20] LABS: AMPHETAMINE SCREEN, URINE Negative (Negative); BARBITURATE SCREEN, URINE Negative (Negative); BENZODIAZEPINE SCREEN, URINE Negative (Negative); CANNABINOID SCREEN, URINE Positive (Negative); COCAINE SCREEN, URINE Negative (Negative); METHADONE SCREEN, URINE Negative (Negative); OPIATE SCREEN, URINE Negative (Negative)
[2020-10-30] MEDS: INSULIN LISPRO 100 UNITS/ML, PEN SQ-INSULIN SCH (21:56)
[2020-10-30] MEDS ORDERED: DULO60CA7 PO (23:46)
[2020-10-30 23:47] LABS: ANION GAP 8 mmol/L (5-15); CALCIUM 8.3 mg/dL (8.5-10.1); CHLORIDE 105 mmol/L (98-107); CREATININE 1.34 mg/dL (0.55-1.02)
[2020-10-30] MEDS ORDERED: ZOLP-413 PO (23:50)
[2020-10-31 00:56] VITALS: BP 130/82
[2020-10-31] MEDS ORDERED: POTASSIUM CHLORIDE 20 MEQ TAB.ER.PRT PO ONE (01:00)
[2020-10-31] MEDS: INSULIN LISPRO 100 UNITS/ML, PEN SQ-INSULIN SCH ×3 (01:42→09:15)
[2020-10-31] MEDS: OXYcodone IR 5MG TABLET PO PRN (03:03)
[2020-10-31 04:53] LABS: BASOPHILS % (AUTO) 1 % (0-1); EOSINOPHILS % (AUTO) 5 % (1-7); LYMPHOCYTES % (AUTO) 37 % (22-44); MEAN CORPUSCULAR HEMOGLOBIN 30.8 pg (27.0-34.8); MEAN CORPUSCULAR HGB CONC 34.6 g/dL (32.4-35.8); MEAN PLATELET VOLUME 8.3 fL (7.4-10.4); MONOCYTES % (AUTO) 6 % (2-9); NEUTROPHILS % (AUTO) 52 % (42-75); PLATELET COUNT 404 x10^3/uL (130-400); RED BLOOD COUNT 3.64 x10^6/uL (3.82-5.3); RED CELL DISTRIBUTION WIDTH 14.2 % (9.6-15.2)
[2020-10-31 04:54] LABS: MD NO
[2020-10-31 05:05] LABS: CHLORIDE 103 mmol/L (98-107)
[2020-10-31 05:13] LABS: ALANINE AMINOTRANSFERASE 27 U/L (12-78); ALBUMIN 2.6 g/dL (3.4-5.0); ALKALINE PHOSPHATASE 104 U/L (45-117); ANION GAP 6 mmol/L (5-15); BILIRUBIN,TOTAL 0.2 mg/dL (0.2-1.0); CALCIUM 8.1 mg/dL (8.5-10.1); CREATININE 1.07 mg/dL (0.55-1.02); TOTAL PROTEIN 5.8 g/dL (6.4-8.2)
[2020-10-31 06:30] VITALS: BP 124/72
[2020-10-31] MEDS: D5%-0.45NACL+KCL 20MEQ 1,000 ML IV SCH (06:40)
[2020-10-31 12:15] VITALS: BP 113/70
== END 2020-10-31 14:32 | disposition home or self-care (01) | DRG 637 ==
LOC: ED 15:23 → EDIP 17:00 → 5SO 18:34 → DCLOUNGE 10-31 14:26
PROVIDERS: ADMIT Internal Medicine; ATTEND Hospitalist
DX: E11.10 Type 2 diabetes mellitus with ketoacidosis without coma (principal); N17.0 Acute kidney failure with tubular necrosis; E11.42 Type 2 diabetes mellitus with diabetic polyneuropathy; E86.0 Dehydration; F12.90 Cannabis use, unspecified, uncomplicated; F17.200 Nicotine dependence, unspecified, uncomplicated; L55.9 Sunburn, unspecified; I10 Essential (primary) hypertension; Z59.0 Homelessness; Z79.4 Long term (current) use of insulin; Z86.73 Personal history of transient ischemic attack (TIA), and cerebral infarction without residual deficits; Z91.14 Patient's other noncompliance with medication regimen; Z91.19 Patient's noncompliance with other medical treatment and regimen; Z90.49 Acquired absence of other specified parts of digestive tract; Z82.49 Family history of ischemic heart disease and other diseases of the circulatory system; Z80.1 Family history of malignant neoplasm of trachea, bronchus and lung
CPT/HCPCS: 36415; 80048; 80053; 80307; 81001; 81025; 82010; 82803; 82962; 83036; 83690; 83735; 83930; 84100; 85025; 93005; 99285; G0378; J1815; J3480; J7030

== ENCOUNTER 2020-11-08 16:59 | Inpatient (IN) | payer MEDICAID ==
[~2020-11-08] VITALS: Ht 157.5 cm; Wt 56.9 kg
[~2020-11-08 16:59] MED LIST changes: +ETOMIDATE 20 MG/10 ML ONE; +PROPOFOL 10 MG/ML, 100ML IV ONE; +VECURONIUM 10 MG ONE
--- NOTE | 2020-11-08 17:01 | NUR ---
45 YR OLD FEMALE ARRIVED VIA EMS FROM A TRANSITIONAL HOME. PER REPORT PT FOUND ON FLOOR ON RIGHT SIDE. PT RODNEY HATHAWAY. PT NOT ANSWERING QUESTIONS. BS 589. DR HILL AT BEDSIDE. PT PLACED ON MONITORING EQUIPMENT.
[2020-11-08 17:27] LABS: MEAN CORPUSCULAR HEMOGLOBIN 30.6 pg (27.0-34.8); MEAN PLATELET VOLUME 8.9 fL (7.4-10.4)
[2020-11-08 17:29] LABS: PH, VENOUS 6.634 pH (7.320-7.420)
[2020-11-08] MEDS ORDERED: SODIUM CHLORIDE FLUSH 10ML SYR IVF ONE (17:30)
[2020-11-08] MEDS ORDERED: PLEASE ENTER HEIGHT AND WEIGHT MC SCH (17:30)
[2020-11-08] MEDS ORDERED: SODIUM CHLORIDE 0.9% 1,000ML IVBOLUS ONE ×3 (17:30→21:30)
[2020-11-08 17:35] LABS: ALANINE AMINOTRANSFERASE 73 U/L (12-78); ALBUMIN 3.4 g/dL (3.4-5.0); ANION GAP 33 mmol/L (5-15); CALCIUM 9.1 mg/dL (8.5-10.1); CHLORIDE 88 mmol/L (98-107); CREATININE 2.54 mg/dL (0.55-1.02); SALICYLATE LEVEL 5.3 mg/dL (2.8-20.0)
[2020-11-08 17:37] LABS: ALKALINE PHOSPHATASE 238 U/L (45-117); BILIRUBIN,TOTAL 0.6 mg/dL (0.2-1.0); TOTAL PROTEIN 7.5 g/dL (6.4-8.2)
--- NOTE | 2020-11-08 17:40 | NUR ---
DR HILL AT BEDSIDE, 2ND LITER INFUSING PER V/O
[2020-11-08 17:56] LABS: PLATELET COUNT 684 x10^3/uL (130-400); RED BLOOD COUNT 4.21 x10^6/uL (3.82-5.3)
--- NOTE | 2020-11-08 17:56 | NUR ---
DR HILL AT BEDSIDE, PT TO BE INTUBATED.
[2020-11-08 17:59] LABS: MICROSCOPIC AUTO
[2020-11-08 17:59] LABS: ACETONE, SERUM Large (80mg/dL) (Negative)
[2020-11-08 18:01] LABS: MEAN CORPUSCULAR HGB CONC 26.3 g/dL (32.4-35.8)
[2020-11-08 18:05] LABS: BANDS%(MANUAL) 6 % (0-7); EOS#(MANUAL) 0.37 x10^3/uL (0.0-0.4); EOS% (MANUAL) 1 % (1-7); LYMPH#(MANUAL) 4.04 x10^3/uL (1-3.4); LYMPHS% (MANUAL) 11 % (22-44); METAMYELOCYTES# (MANUAL) 0.73 x10^3/uL (0-0); METAMYELOCYTES% (MANUAL) 2 % (0-1); MONOS#(MANUAL) 2.94 x10^3/uL (0.3-2.7); MONOS% (MANUAL) 8 % (2-9); SEG#(MANUAL) 26.42 x10^3/uL (1.8-6.8); SEGS% (MANUAL) 72 % (42-75)
[2020-11-08] MEDS ORDERED: SODIUM BICARB 8.4%, 50ML SYRINGE ONE (18:05)
[2020-11-08 18:06] LABS: <PLATELET ESTIMATE> INCREASED; <PLT MORPHOLOGY> NORMAL PLT MORPH
[2020-11-08 18:07] LABS: ANISOCYTOSIS 1+; HYPOCHROMIA 1+; POLYCHROMASIA 1+
[2020-11-08 18:09] LABS: CRENATED 1+
[2020-11-08 18:10] LABS: AMPHETAMINE SCREEN, URINE Negative (Negative); BARBITURATE SCREEN, URINE Negative (Negative); BENZODIAZEPINE SCREEN, URINE Negative (Negative); CANNABINOID SCREEN, URINE Negative (Negative); COCAINE SCREEN, URINE Negative (Negative); METHADONE SCREEN, URINE Negative (Negative); OPIATE SCREEN, URINE Negative (Negative)
--- NOTE | 2020-11-08 18:25 | NUR ---
1800 DR HILL AT BEDSIDE. PT GIVEN 20 MG ETOMIDATE, 1801 PT GIVEN 7MG VECURONIUM. 180 PT INTUBATED WITH 7.5 ETT 23 AT LIP. 180 PT GIVEN 2 AMPS BICARB. 181 16F NG PLACED IN RIGHT NARE. DR STEEN CURRENTLY AT BEDSIDE FOR CENTRAL LINE PLACEMENT. PT SR PER MONITOR. DIPRIVAN STARTED AT 5MCG/KG/MIN. CONT TO RECEIVE 2 LITERS NS VIA PERIPHERAL LINES.
[2020-11-08] MEDS ORDERED: SODIUM BICARB 8.4%, 50ML SYRINGE IVPush ONE ×3 (18:30→21:30)
[2020-11-08] MEDS ORDERED: ETOMIDATE 40 MG/20 ML IVPush ONE (18:30)
[2020-11-08] MEDS ORDERED: PROPOFOL 100 ML IV PRN ×2 (18:30→19:00)
[2020-11-08] MEDS ORDERED: VECURONIUM 10 MG IVPush ONE (18:30)
--- NOTE | 2020-11-08 18:50 | NUR ---
PT CORE TEMP 30.3 C, NADYA HUGGER IN PLACE. SR PER MONITOR. DR WALKER AT BEDSIDE TO DREW PT. REPORT TO DENISE BORGES.
--- NOTE | 2020-11-08 18:54 | NUR ---
PORTABLE CXR IN PROGRESS.
[2020-11-08] MEDS ORDERED: SENNA/DOCUSATE TABLET NG PRN (19:00)
[2020-11-08] MEDS ORDERED: LIDOCAINE-MPF 1%, 2ML ENDO PRN (19:00)
[2020-11-08] MEDS ORDERED: SENNA 176 MG/5 ML ORAL SOL NG PRN (19:00)
[2020-11-08] MEDS ORDERED: BISACODYL 10 MG SUPP PR PRN (19:00)
[2020-11-08] MEDS ORDERED: REGULAR INSULIN 100 UNITS in SODIUM CHLORIDE 0.9% 99 ML IV PRN (19:00)
[2020-11-08] MEDS ORDERED: PHARMACY MAY ADJ FOR RENAL FX MC SCH (19:00)
[2020-11-08] MEDS ORDERED: FENTANYL PF 100 MCG/2ML IVPush PRN (19:00)
[2020-11-08] MEDS ORDERED: LACTULOSE 20 GM/30 ML UDC NG PRN (19:00)
--- NOTE | 2020-11-08 19:03 | NUR ---
REPORT FROM ALBER ASSUMED CARE OF PT
--- NOTE | 2020-11-08 19:21 | NUR ---
NS # 43 [address] WALKER ORDER, LINE PLACEMENT VERIFIED BY DR WALKER, INSULIN RUNNING, ETT PULLED BACK BY 2 INCH
--- NOTE | 2020-11-08 19:22 | NUR ---
ETT 7.5 23 AT LIP, 100% FIO2, PEEP 5, TIDAL VOLUME 450 AT RATE OF 25
[2020-11-08] MEDS ORDERED: SODIUM CHLORIDE FLUSH 10ML SYR IVF PRN (19:30)
[2020-11-08] MEDS: D5%-0.45NACL+KCL 20MEQ 1,000 ML IV SCH (19:30)
[2020-11-08] MEDS ORDERED: SODIUM CHLORIDE 0.9% 1,000 ML IV SCH (19:30)
--- NOTE | 2020-11-08 19:52 | NUR ---
REPORT TO MARA JORGENSEN TO ICU WITH RT RN AND TECH
[2020-11-08] MEDS ORDERED: CALCIUM GLUCONATE 4.6 MEQ in SODIUM CHLORIDE 0.9% 50 ML IV ONE (20:00)
--- NOTE | 2020-11-08 21:47 | NUR ---
# 5 L rosa running on admit
[2020-11-08] MEDS: HEPARIN 5,000 UNITS/ML, 1ML SQ SCH (22:34)
[2020-11-08 22:36] LABS: ANION GAP 26 mmol/L (5-15); CALCIUM 6.2 mg/dL (8.5-10.1); CHLORIDE 114 mmol/L (98-107); CREATININE 1.39 mg/dL (0.55-1.02)
[2020-11-08] MEDS ORDERED: PHARMACOKINETIC MONITORING MC PRN (23:00)
[2020-11-08] MEDS ORDERED: VANCOMYCIN PER PHARMACY MC PRN (23:00)
[2020-11-08] MEDS ORDERED: PHARMACY MAY ADJ FOR RENAL FX MC PRN (23:00)
[2020-11-08] MEDS ORDERED: VANCOMYCIN 1,100 MG in SODIUM CHLORIDE 0.9% 250 ML IV ONE (23:00)
[2020-11-08] MEDS ORDERED: PHARMACOKINETIC CONSULTATION MC ONE (23:00)
[2020-11-08] MEDS ORDERED: CALCIUM GLUCONATE IV ONE (23:30)
[2020-11-08] MEDS: PIPERACILLIN/TAZO 3.375 GM in DEXTROSE 5% 50 ML IVPB SCH (23:34)
[2020-11-08] MEDS ORDERED: CALCIUM GLUCONATE 4.6 MEQ in SODIUM CHLORIDE 0.9% 100 ML IV ONE (23:45)
[2020-11-09] MEDS: REGULAR INSULIN 100 UNITS in SODIUM CHLORIDE 0.9% 99 ML IV PRN ×2 (02:43→09:43)
[2020-11-09] MEDS: D5%-0.45NACL+KCL 20MEQ 1,000 ML IV SCH ×2 (03:28→06:46)
[2020-11-09] MEDS ORDERED: SODIUM CHLORIDE 0.45% 1,000 ML IV SCH (03:30)
[2020-11-09 03:40] LABS: ANION GAP 20 mmol/L (5-15); CALCIUM 6.7 mg/dL (8.5-10.1); CHLORIDE 122 mmol/L (98-107)
[2020-11-09] MEDS ORDERED: POTASSIUM CHLORIDE 20 MEQ PACKET NG ONE (04:30)
[2020-11-09] MEDS ORDERED: POTASSIUM CHLORIDE 40 MEQ in SODIUM CHLORIDE 0.9% 100 ML IV ONE (04:30)
[2020-11-09] MEDS: PIPERACILLIN/TAZO 3.375 GM in DEXTROSE 5% 50 ML IVPB SCH ×4 (05:30→22:31)
[2020-11-09] MEDS: HEPARIN 5,000 UNITS/ML, 1ML SQ SCH ×3 (05:44→21:56)
[2020-11-09 07:10] LABS: ANION GAP 13 mmol/L (5-15); CALCIUM 7.1 mg/dL (8.5-10.1); CHLORIDE 124 mmol/L (98-107); CREATININE 1.46 mg/dL (0.55-1.02)
[2020-11-09] MEDS ORDERED: MAGNESIUM SULFATE PMX 2GM/50ML 50 ML IV ONE (09:00)
[2020-11-09 09:17] LABS: MEAN CORPUSCULAR HEMOGLOBIN 30.5 pg (27.0-34.8); MEAN CORPUSCULAR HGB CONC 33.7 g/dL (32.4-35.8); MEAN PLATELET VOLUME 7.6 fL (7.4-10.4); PLATELET COUNT 432 x10^3/uL (130-400); RED BLOOD COUNT 3.68 x10^6/uL (3.82-5.3); RED CELL DISTRIBUTION WIDTH 14.3 % (9.6-15.2)
[2020-11-09] MEDS: PANTOPRAZOLE 40 MG IV IV SCH (09:43)
[2020-11-09 09:57] LABS: BAND#(MANUAL) 0.85 x10^3/uL; BANDS%(MANUAL) 4 % (0-7); LYMPH#(MANUAL) 1.48 x10^3/uL (1-3.4); LYMPHS% (MANUAL) 7 % (22-44); MONOS#(MANUAL) 0.85 x10^3/uL (0.3-2.7); MONOS% (MANUAL) 4 % (2-9); SEG#(MANUAL) 18.02 x10^3/uL (1.8-6.8); SEGS% (MANUAL) 85 % (42-75)
[2020-11-09 09:59] LABS: <PLATELET ESTIMATE> INCREASED; <PLT MORPHOLOGY> NORMAL PLT MORPH; ANISOCYTOSIS 1+; POLYCHROMASIA 1+
[2020-11-09 11:46] LABS: ANION GAP 9 mmol/L (5-15); CALCIUM 7.1 mg/dL (8.5-10.1); CHLORIDE 128 mmol/L (98-107); CREATININE 1.41 mg/dL (0.55-1.02)
[2020-11-09] MEDS: INSULIN LISPRO 100 UNITS/ML, PEN SQ-INSULIN SCH ×3 (14:00→21:56)
[2020-11-09] MEDS: INSULIN GLARGINE 100 UNITS/ML, PEN SQ-INSULIN SCH (14:37)
[2020-11-09] MEDS: VANCOMYCIN 1,000 MG in SODIUM CHLORIDE 0.9% 100 ML IV SCH (14:41)
[2020-11-09] MEDS ORDERED: LABETALOL 5MG/ML, 20ML IVPush PRN (15:00)
[2020-11-09] MEDS ORDERED: hydrALAzine 20 MG/ML, 1ML IVPush PRN (15:00)
[2020-11-09] MEDS ORDERED: VANCOMYCIN 1,000 MG in SODIUM CHLORIDE 0.9% 100 ML IV SCH (17:00)
[2020-11-09] MEDS ORDERED: ONDANSETRON 2MG/ML, 2ML IVPush PRN (21:00)
[2020-11-09] MEDS ORDERED: LORazepam 2 MG/ML, 1ML ONE (22:27)
[2020-11-09] MEDS: LORazepam 2 MG/ML, 1ML IVPush PRN (22:30)
[2020-11-10] MEDS: INSULIN GLARGINE 100 UNITS/ML, PEN SQ-INSULIN SCH (02:05)
[2020-11-10] MEDS: INSULIN LISPRO 100 UNITS/ML, PEN SQ-INSULIN SCH ×4 (02:05→14:33)
[2020-11-10] MEDS ORDERED: LORazepam 2 MG/ML, 1ML IVPush ONE (03:00)
[2020-11-10] MEDS ORDERED: SODIUM CHLORIDE 0.45% 1,000 ML IV SCH ×2 (03:30)
[2020-11-10 04:23] LABS: BASOPHILS % (AUTO) 0 % (0-1); EOSINOPHILS % (AUTO) 0 % (1-7); LYMPHOCYTES % (AUTO) 10 % (22-44); MEAN CORPUSCULAR HEMOGLOBIN 30.4 pg (27.0-34.8); MEAN CORPUSCULAR HGB CONC 33.7 g/dL (32.4-35.8); MEAN PLATELET VOLUME 7.5 fL (7.4-10.4); MONOCYTES % (AUTO) 7 % (2-9); NEUTROPHILS % (AUTO) 83 % (42-75); PLATELET COUNT 366 x10^3/uL (130-400); RED BLOOD COUNT 3.01 x10^6/uL (3.82-5.3); RED CELL DISTRIBUTION WIDTH 14.8 % (9.6-15.2)
[2020-11-10 04:35] LABS: ANION GAP 16 mmol/L (5-15); CALCIUM 7.2 mg/dL (8.5-10.1); CHLORIDE 124 mmol/L (98-107); CREATININE 1.37 mg/dL (0.55-1.02)
[2020-11-10] MEDS: PIPERACILLIN/TAZO 3.375 GM in DEXTROSE 5% 50 ML IVPB SCH ×4 (04:47→23:06)
[2020-11-10] MEDS: HEPARIN 5,000 UNITS/ML, 1ML SQ SCH ×3 (06:18→21:24)
[2020-11-10] MEDS ORDERED: SODIUM PHOSPHATE 20 MMOL in SODIUM CHLORIDE 0.9% 500 ML IV ONE (07:30)
[2020-11-10] MEDS: PANTOPRAZOLE 40 MG IV IV SCH (08:05)
[2020-11-10] MEDS: ZIPRASIDONE 20 MG INJ IM PRN ×3 (08:06→16:30)
[2020-11-10] MEDS: ACETAMINOPHEN 650 MG/20.3 ML UDC PO/NG PRN (12:36)
[2020-11-10] MEDS ORDERED: INSULIN GLARGINE 100 UNITS/ML, PEN SQ-INSULIN SCH (14:00)
[2020-11-10 15:36] LABS: ANION GAP 15 mmol/L (5-15); CALCIUM 7.3 mg/dL (8.5-10.1); CHLORIDE 124 mmol/L (98-107); CREATININE 1.19 mg/dL (0.55-1.02)
[2020-11-10] MEDS: VANCOMYCIN 1,000 MG in SODIUM CHLORIDE 0.9% 100 ML IV SCH (15:47)
[2020-11-10] MEDS ORDERED: POTASSIUM CHLORIDE 20 MEQ PACKET PO ONE (16:00)
[2020-11-10] MEDS ORDERED: REGULAR INSULIN 100 UNITS in SODIUM CHLORIDE 0.9% 99 ML IV PRN (16:00)
[2020-11-10] MEDS: D5%-0.45NACL+KCL 20MEQ 1,000 ML IV SCH (17:30)
[2020-11-10 20:14] LABS: ANION GAP 7 mmol/L (5-15); CALCIUM 7.4 mg/dL (8.5-10.1); CHLORIDE 127 mmol/L (98-107); CREATININE 1.12 mg/dL (0.55-1.02)
[2020-11-10] MEDS: LORazepam 2 MG/ML, 1ML IVPush PRN (21:24)
[2020-11-11 00:36] LABS: ANION GAP 6 mmol/L (5-15); CALCIUM 7.5 mg/dL (8.5-10.1); CHLORIDE 127 mmol/L (98-107); CREATININE 1.03 mg/dL (0.55-1.02)
[2020-11-11] MEDS: D5%-0.45NACL+KCL 20MEQ 1,000 ML IV SCH (01:27)
[2020-11-11] MEDS: LORazepam 2 MG/ML, 1ML IVPush PRN (03:32)
[2020-11-11] MEDS: ZIPRASIDONE 20 MG INJ IM PRN (04:13)
[2020-11-11 04:20] LABS: BASOPHILS % (AUTO) 0 % (0-1); EOSINOPHILS % (AUTO) 0 % (1-7); LYMPHOCYTES % (AUTO) 22 % (22-44); MEAN CORPUSCULAR HEMOGLOBIN 30.5 pg (27.0-34.8); MEAN CORPUSCULAR HGB CONC 33.6 g/dL (32.4-35.8); MEAN PLATELET VOLUME 7.6 fL (7.4-10.4); MONOCYTES % (AUTO) 6 % (2-9); NEUTROPHILS % (AUTO) 71 % (42-75); PLATELET COUNT 286 x10^3/uL (130-400); RED BLOOD COUNT 2.75 x10^6/uL (3.82-5.3); RED CELL DISTRIBUTION WIDTH 15.5 % (9.6-15.2)
[2020-11-11 04:27] LABS: ALANINE AMINOTRANSFERASE 81 U/L (12-78); ALBUMIN 2.5 g/dL (3.4-5.0); ANION GAP 4 mmol/L (5-15); CALCIUM 7.7 mg/dL (8.5-10.1); CHLORIDE 123 mmol/L (98-107); CREATININE 1.06 mg/dL (0.55-1.02)
[2020-11-11 04:30] LABS: ALKALINE PHOSPHATASE 139 U/L (45-117); BILIRUBIN,TOTAL 0.6 mg/dL (0.2-1.0); TOTAL PROTEIN 5.3 g/dL (6.4-8.2)
[2020-11-11] MEDS: HEPARIN 5,000 UNITS/ML, 1ML SQ SCH ×3 (05:31→23:06)
[2020-11-11] MEDS: PIPERACILLIN/TAZO 3.375 GM in DEXTROSE 5% 50 ML IVPB SCH ×3 (05:32→19:43)
[2020-11-11] MEDS ORDERED: POTASSIUM PHOSPHATE 44 MEQ in SODIUM CHLORIDE 0.9% 500 ML IV ONE (07:00)
[2020-11-11] MEDS: INSULIN LISPRO 100 UNITS/ML, PEN SQ-INSULIN SCH ×5 (07:00→23:05)
[2020-11-11] MEDS ORDERED: MAGNESIUM SULFATE PMX 2GM/50ML 50 ML IV ONE (07:00)
[2020-11-11] MEDS: PANTOPRAZOLE 40 MG IV IV SCH (09:31)
[2020-11-11] MEDS: INSULIN GLARGINE 100 UNITS/ML, PEN SQ-INSULIN SCH ×2 (09:35→19:44)
[2020-11-11 12:12] VITALS: BP 154/84
[2020-11-11] MEDS ORDERED: VANCOMYCIN 1,000 MG in SODIUM CHLORIDE 0.9% 100 ML IV SCH (17:00)
[2020-11-11] MEDS: VANCOMYCIN 1,000 MG in SODIUM CHLORIDE 0.9% 250 ML IV SCH (17:45)
[2020-11-11 19:34] VITALS: BP 146/75
[2020-11-12] MEDS: PIPERACILLIN/TAZO 3.375 GM in DEXTROSE 5% 50 ML IVPB SCH ×4 (01:09→19:25)
[2020-11-12] MEDS: ZIPRASIDONE 20 MG INJ IM PRN (01:27)
[2020-11-12 01:28] VITALS: BP 128/76
[2020-11-12] MEDS: INSULIN LISPRO 100 UNITS/ML, PEN SQ-INSULIN SCH ×6 (03:14→20:46)
[2020-11-12] MEDS: VANCOMYCIN 1,000 MG in SODIUM CHLORIDE 0.9% 250 ML IV SCH (04:50)
[2020-11-12 05:56] LABS: BASOPHILS % (AUTO) 1 % (0-1); EOSINOPHILS % (AUTO) 2 % (1-7); LYMPHOCYTES % (AUTO) 33 % (22-44); MEAN CORPUSCULAR HEMOGLOBIN 30.9 pg (27.0-34.8); MEAN CORPUSCULAR HGB CONC 33.7 g/dL (32.4-35.8); MEAN PLATELET VOLUME 7.9 fL (7.4-10.4); MONOCYTES % (AUTO) 6 % (2-9); NEUTROPHILS % (AUTO) 58 % (42-75); PLATELET COUNT 282 x10^3/uL (130-400); RED BLOOD COUNT 2.77 x10^6/uL (3.82-5.3); RED CELL DISTRIBUTION WIDTH 14.9 % (9.6-15.2)
[2020-11-12 06:02] LABS: ANION GAP 8 mmol/L (5-15); CALCIUM 8.2 mg/dL (8.5-10.1); CHLORIDE 114 mmol/L (98-107)
[2020-11-12 06:03] LABS: CREATININE 0.89 mg/dL (0.55-1.02)
[2020-11-12 07:49] VITALS: BP 189/93
[2020-11-12] MEDS: HEPARIN 5,000 UNITS/ML, 1ML SQ SCH ×3 (08:10→23:22)
[2020-11-12] MEDS: PANTOPRAZOLE 40 MG IV IV SCH (08:10)
[2020-11-12] MEDS: INSULIN GLARGINE 100 UNITS/ML, PEN SQ-INSULIN SCH ×2 (08:14→19:28)
[2020-11-12 14:32] VITALS: BP 171/84
[2020-11-12] MEDS: VANCOMYCIN 1,000 MG in SODIUM CHLORIDE 0.9% 100 ML IV SCH (17:32)
[2020-11-12 20:08] VITALS: BP 140/81
[2020-11-12] MEDS: DULOXETINE 30 MG CAPSULE.DR PO SCH (20:46)
[2020-11-12] MEDS: ZOLPIDEM 5MG TABLET PO SCH (20:46)
[2020-11-12] MEDS: QUETIAPINE 25MG TABLET PO SCH (20:46)
[2020-11-13] MEDS: PIPERACILLIN/TAZO 3.375 GM in DEXTROSE 5% 50 ML IVPB SCH (01:06)
[2020-11-13] MEDS: VANCOMYCIN 1,000 MG in SODIUM CHLORIDE 0.9% 100 ML IV SCH (04:51)
[2020-11-13 05:41] LABS: BASOPHILS % (AUTO) 1 % (0-1); EOSINOPHILS % (AUTO) 6 % (1-7); LYMPHOCYTES % (AUTO) 42 % (22-44); MEAN CORPUSCULAR HGB CONC 33.9 g/dL (32.4-35.8); MEAN PLATELET VOLUME 8.3 fL (7.4-10.4); MONOCYTES % (AUTO) 8 % (2-9); NEUTROPHILS % (AUTO) 44 % (42-75); PLATELET COUNT 306 x10^3/uL (130-400)
[2020-11-13 05:55] LABS: ANION GAP 7 mmol/L (5-15); CALCIUM 8.3 mg/dL (8.5-10.1); CHLORIDE 112 mmol/L (98-107)
[2020-11-13 05:58] LABS: CREATININE 1.06 mg/dL (0.55-1.02)
[2020-11-13] MEDS ORDERED: PANTOPRAZOLE 40MG TABLET PO SCH (06:00)
[2020-11-13 06:58] VITALS: BP 147/80
[2020-11-13] MEDS ORDERED: IBUPROFEN 600 MG TABLET ONE (08:18)
[2020-11-13] MEDS: IBUPROFEN 600 MG TABLET PO PRN (08:22)
[2020-11-13] MEDS: CLOPIDOGREL 75 MG TABLET PO SCH (08:22)
[2020-11-13] MEDS: DULOXETINE 30 MG CAPSULE.DR PO SCH ×2 (08:22→21:15)
[2020-11-13] MEDS ORDERED: POTASSIUM CHLORIDE 20 MEQ TAB.ER.PRT PO ONE (08:30)
[2020-11-13] MEDS: LACTOBACILLUS CHEW TABLET PO SCH ×4 (09:18→21:15)
[2020-11-13] MEDS: PANTOPRAZOLE 40MG TABLET PO SCH (09:21)
[2020-11-13] MEDS: INSULIN LISPRO 100 UNITS/ML, PEN SQ-INSULIN SCH ×4 (09:31→21:17)
[2020-11-13] MEDS: INSULIN GLARGINE 100 UNITS/ML, PEN SQ-INSULIN SCH ×2 (09:31→21:16)
[2020-11-13 15:59] VITALS: BP 120/74
[2020-11-13] MEDS: HEPARIN 5,000 UNITS/ML, 1ML SQ SCH (18:10)
[2020-11-13 18:42] LABS: HCG UR SG 1.004 (1.003-1.030)
[2020-11-13 20:08] VITALS: BP 148/81
[2020-11-13 21:11] VITALS: BP 138/90
[2020-11-13] MEDS: ATORVASTATIN 40 MG TABLET PO SCH (21:14)
[2020-11-13] MEDS: LISINOPRIL 5 MG TABLET PO SCH (21:14)
[2020-11-13] MEDS: METOPROLOL SUCCINATE 50 MG TAB.ER.24H PO SCH (21:14)
[2020-11-13] MEDS: QUETIAPINE 25MG TABLET PO SCH (21:15)
[2020-11-13] MEDS: ZOLPIDEM 5MG TABLET PO SCH (21:15)
[2020-11-13 23:29] LABS: CLOSTRIDIUM DIFFICILE ANTIGEN POSITIVE; CLOSTRIDIUM DIFFICILE TOXIN NEGATIVE (Negative)
[2020-11-14] MEDS: VANCOMYCIN 50 MG/ML ORAL SUSP PO SCH ×4 (00:58→20:30)
[2020-11-14 01:15] VITALS: BP 129/79
[2020-11-14 06:14] LABS: % IRON SATURATION 14 % (20-55); ANION GAP 7 mmol/L (5-15); CALCIUM 8.6 mg/dL (8.5-10.1); CHLORIDE 111 mmol/L (98-107); IRON LEVEL 29 mcg/dL (50-170); TOTAL IRON BINDING CAPACITY 203 mcg/dL (250-450)
[2020-11-14 06:44] VITALS: BP 123/73
[2020-11-14] MEDS: INSULIN LISPRO 100 UNITS/ML, PEN SQ-INSULIN SCH ×4 (07:00→20:34)
[2020-11-14] MEDS ORDERED: POTASSIUM CHLORIDE 20 MEQ TAB.ER.PRT PO ONE (07:30)
[2020-11-14] MEDS: IBUPROFEN 600 MG TABLET PO PRN (10:01)
[2020-11-14] MEDS: LACTOBACILLUS CHEW TABLET PO SCH ×3 (10:01→20:30)
[2020-11-14] MEDS: PANTOPRAZOLE 40MG TABLET PO SCH (10:01)
[2020-11-14] MEDS: DULOXETINE 30 MG CAPSULE.DR PO SCH ×2 (10:01→20:29)
[2020-11-14] MEDS: CLOPIDOGREL 75 MG TABLET PO SCH (10:02)
[2020-11-14] MEDS: HEPARIN 5,000 UNITS/ML, 1ML SQ SCH ×2 (10:02→17:23)
[2020-11-14] MEDS: INSULIN GLARGINE 100 UNITS/ML, PEN SQ-INSULIN SCH ×2 (10:13→20:34)
[2020-11-14] MEDS: SODIUM CHLORIDE 0.9% 1,000 ML IV SCH (10:26)
[2020-11-14 13:17] VITALS: BP 125/72
[2020-11-14 19:28] VITALS: BP 167/79
[2020-11-14 20:25] VITALS: BP 158/72
[2020-11-14] MEDS: ATORVASTATIN 40 MG TABLET PO SCH (20:29)
[2020-11-14] MEDS: ZOLPIDEM 5MG TABLET PO SCH (20:29)
[2020-11-14] MEDS: METOPROLOL SUCCINATE 50 MG TAB.ER.24H PO SCH (20:29)
[2020-11-14] MEDS: LISINOPRIL 5 MG TABLET PO SCH (20:29)
[2020-11-14] MEDS: QUETIAPINE 25MG TABLET PO SCH (20:30)
[2020-11-15] MEDS: VANCOMYCIN 50 MG/ML ORAL SUSP PO SCH ×4 (02:09→20:02)
[2020-11-15 02:15] VITALS: BP 152/79
[2020-11-15] MEDS: SODIUM CHLORIDE 0.9% 1,000 ML IV SCH ×2 (05:48→23:26)
[2020-11-15 05:49] LABS: CHLORIDE 110 mmol/L (98-107)
[2020-11-15] MEDS: ACETAMINOPHEN 650 MG/20.3 ML UDC PO/NG PRN ×3 (05:55→21:07)
[2020-11-15 05:59] LABS: ANION GAP 5 mmol/L (5-15); CALCIUM 8.5 mg/dL (8.5-10.1); CREATININE 1.29 mg/dL (0.55-1.02)
[2020-11-15] MEDS: HEPARIN 5,000 UNITS/ML, 1ML SQ SCH ×2 (07:00→20:02)
[2020-11-15 07:02] VITALS: BP 145/82
[2020-11-15] MEDS ORDERED: MAGNESIUM SULFATE PMX 2GM/50ML 50 ML IV ONE (07:30)
[2020-11-15] MEDS: CARVEDILOL 3.125 MG TABLET PO SCH ×2 (08:24→18:25)
[2020-11-15] MEDS: CLOPIDOGREL 75 MG TABLET PO SCH (08:24)
[2020-11-15] MEDS: DULOXETINE 30 MG CAPSULE.DR PO SCH ×2 (08:25→20:03)
[2020-11-15] MEDS: INSULIN GLARGINE 100 UNITS/ML, PEN SQ-INSULIN SCH ×2 (08:25→20:20)
[2020-11-15] MEDS: PANTOPRAZOLE 40MG TABLET PO SCH (08:25)
[2020-11-15] MEDS: LACTOBACILLUS CHEW TABLET PO SCH ×3 (08:25→20:02)
[2020-11-15] MEDS: INSULIN LISPRO 100 UNITS/ML, PEN SQ-INSULIN SCH ×3 (12:31→20:20)
[2020-11-15 13:35] VITALS: BP 119/74
[2020-11-15 19:13] VITALS: BP 166/90
[2020-11-15] MEDS: QUETIAPINE 25MG TABLET PO SCH (20:02)
[2020-11-15] MEDS: LISINOPRIL 10 MG TABLET PO SCH (20:03)
[2020-11-15] MEDS: ZOLPIDEM 5MG TABLET PO SCH (20:03)
[2020-11-15] MEDS: ATORVASTATIN 40 MG TABLET PO SCH (20:03)
[2020-11-15] MEDS: MICONAZOLE 7 VAG. CRM 2%, 45GM VG SCH ×2 (21:07→23:26)
[2020-11-16 00:26] VITALS: BP 161/87
[2020-11-16] MEDS: VANCOMYCIN 50 MG/ML ORAL SUSP PO SCH ×4 (01:46→20:41)
[2020-11-16 05:38] VITALS: BP 155/84
[2020-11-16] MEDS: CARVEDILOL 3.125 MG TABLET PO SCH ×2 (05:53→18:28)
[2020-11-16 05:59] LABS: ANION GAP 7 mmol/L (5-15); CALCIUM 8.9 mg/dL (8.5-10.1); CHLORIDE 111 mmol/L (98-107); CREATININE 1.23 mg/dL (0.55-1.02)
[2020-11-16 06:50] VITALS: BP 136/85
[2020-11-16] MEDS: INSULIN LISPRO 100 UNITS/ML, PEN SQ-INSULIN SCH ×4 (07:42→20:22)
[2020-11-16] MEDS: HEPARIN 5,000 UNITS/ML, 1ML SQ SCH ×2 (07:42→19:00)
[2020-11-16] MEDS: INSULIN GLARGINE 100 UNITS/ML, PEN SQ-INSULIN SCH ×2 (08:29→20:22)
[2020-11-16] MEDS: LACTOBACILLUS CHEW TABLET PO SCH ×3 (08:29→20:23)
[2020-11-16] MEDS: DULOXETINE 30 MG CAPSULE.DR PO SCH ×2 (08:30→20:23)
[2020-11-16] MEDS: CLOPIDOGREL 75 MG TABLET PO SCH (08:30)
[2020-11-16] MEDS: PANTOPRAZOLE 40MG TABLET PO SCH (08:30)
[2020-11-16] MEDS ORDERED: POTASSIUM CHLORIDE 20 MEQ TAB.ER.PRT PO ONE (13:30)
[2020-11-16 14:04] VITALS: BP 152/83
[2020-11-16] MEDS: SODIUM CHLORIDE 0.9% 1,000 ML IV SCH (14:35)
[2020-11-16] MEDS: ACETAMINOPHEN 650 MG/20.3 ML UDC PO/NG PRN (14:52)
[2020-11-16 19:12] VITALS: BP 162/89
[2020-11-16] MEDS: ATORVASTATIN 40 MG TABLET PO SCH (20:23)
[2020-11-16] MEDS: ZOLPIDEM 5MG TABLET PO SCH (20:23)
[2020-11-16] MEDS: QUETIAPINE 25MG TABLET PO SCH (20:23)
[2020-11-16] MEDS: LISINOPRIL 10 MG TABLET PO SCH (20:23)
[2020-11-16] MEDS: MICONAZOLE 7 VAG. CRM 2%, 45GM VG SCH (20:24)
[2020-11-17 00:15] VITALS: BP 130/70
[2020-11-17] MEDS: VANCOMYCIN 50 MG/ML ORAL SUSP PO SCH ×2 (03:22→11:02)
[2020-11-17] MEDS: SODIUM CHLORIDE 0.9% 1,000 ML IV SCH (03:22)
[2020-11-17] MEDS: CARVEDILOL 3.125 MG TABLET PO SCH (05:09)
[2020-11-17 05:36] LABS: ANION GAP 7 mmol/L (5-15); CALCIUM 8.9 mg/dL (8.5-10.1); CHLORIDE 109 mmol/L (98-107)
[2020-11-17 05:38] LABS: CREATININE 1.22 mg/dL (0.55-1.02)
[2020-11-17] MEDS: HEPARIN 5,000 UNITS/ML, 1ML SQ SCH (07:00)
[2020-11-17 07:20] VITALS: BP 146/84
[2020-11-17] MEDS: INSULIN LISPRO 100 UNITS/ML, PEN SQ-INSULIN SCH ×2 (07:53→11:56)
[2020-11-17] MEDS: INSULIN GLARGINE 100 UNITS/ML, PEN SQ-INSULIN SCH (08:54)
[2020-11-17] MEDS ORDERED: LISI-167 PO (09:31)
[2020-11-17] MEDS ORDERED: VANC1VIA36 PO (09:31)
[2020-11-17] MEDS ORDERED: ACID1TAB7 PO (09:31)
[2020-11-17] MEDS ORDERED: FERR325T18 PO (09:31)
[2020-11-17] MEDS ORDERED: ATOR40TA78 PO (09:31)
[2020-11-17] MEDS ORDERED: INSU100I34 SC (09:31)
[2020-11-17] MEDS: LACTOBACILLUS CHEW TABLET PO SCH (10:17)
[2020-11-17] MEDS: PANTOPRAZOLE 40MG TABLET PO SCH (10:18)
[2020-11-17] MEDS: DULOXETINE 30 MG CAPSULE.DR PO SCH (10:18)
[2020-11-17] MEDS: CLOPIDOGREL 75 MG TABLET PO SCH (10:18)
[2020-11-17 14:32] VITALS: BP 133/85
[2020-11-17] MEDS ORDERED: CARVEDILOL 6.25 MG TABLET PO SCH (18:00)
== END 2020-11-17 15:34 | disposition home or self-care (01) | DRG 637 ==
LOC: ED 17:30 → EDIP 19:39 → CCU 20:03 → 3N 11-11 11:29
PROVIDERS: ADMIT Family Medicine; ATTEND Internal Medicine
PROC: 02HV33Z Insertion of Infusion Device into Superior Vena Cava, Percutaneous Approach (ICD-10-PCS; principal; 2020-11-08)
PROC: B543ZZA Ultrasonography of Right Jugular Veins, Guidance (ICD-10-PCS; 2020-11-08)
PROC: 5A1935Z Respiratory Ventilation, Less than 24 Consecutive Hours (ICD-10-PCS; 2020-11-08)
PROC: 0BH17EZ Insertion of Endotracheal Airway into Trachea, Via Natural or Artificial Opening (ICD-10-PCS; 2020-11-08)
PROC: 0T9B70Z Drainage of Bladder with Drainage Device, Via Natural or Artificial Opening (ICD-10-PCS; 2020-11-08)
DX: E10.11 Type 1 diabetes mellitus with ketoacidosis with coma (principal); G93.41 Metabolic encephalopathy; J96.01 Acute respiratory failure with hypoxia; N17.0 Acute kidney failure with tubular necrosis; A04.72 Enterocolitis due to Clostridium difficile, not specified as recurrent; E87.0 Hyperosmolality and hypernatremia; R65.10 Systemic inflammatory response syndrome (SIRS) of non-infectious origin without acute organ dysfunction; B37.9 Candidiasis, unspecified; D50.9 Iron deficiency anemia, unspecified; D69.6 Thrombocytopenia, unspecified; E10.40 Type 1 diabetes mellitus with diabetic neuropathy, unspecified; E83.41 Hypermagnesemia; E83.42 Hypomagnesemia; E86.0 Dehydration; E87.5 Hyperkalemia; E87.6 Hypokalemia; F12.90 Cannabis use, unspecified, uncomplicated; F15.90 Other stimulant use, unspecified, uncomplicated; G89.29 Other chronic pain; I10 Essential (primary) hypertension; K21.9 Gastro-esophageal reflux disease without esophagitis; R74.01 Elevation of levels of liver transaminase levels; F17.200 Nicotine dependence, unspecified, uncomplicated; D75.89 Other specified diseases of blood and blood-forming organs; E78.5 Hyperlipidemia, unspecified; F43.10 Post-traumatic stress disorder, unspecified; F41.9 Anxiety disorder, unspecified; Z71.6 Tobacco abuse counseling; Z76.5 Malingerer [conscious simulation]; Z79.4 Long term (current) use of insulin; Z86.73 Personal history of transient ischemic attack (TIA), and cerebral infarction without residual deficits; Z90.49 Acquired absence of other specified parts of digestive tract; Z91.19 Patient's noncompliance with other medical treatment and regimen
CPT/HCPCS: 31500; 36415; 36556; 36600; 84145; 96374; 99291; 99292; J3370; 70450; 71045; 80048; 80053; 80202; 80299; 80307; 80320; 80329; 81001; 81025; 82010; 82140; 82330; 82533; 82550; 82803; 82962; 83036; 83540; 83550; 83690; 83735; 83930; 84100; 84443; 84478; 85025; 87040; 87070; 87081; 87205; 87324; 93005; 94002; 94003; G0378; J0610; J1644; J1815; J2405; J2543; J2704; J3480; J3486; 92523-GN; C9113; G0480; J2060; J3475; J7030; J7040; J7050

== ENCOUNTER 2021-01-29 17:23 | Inpatient (IN) | payer MEDICAID ==
[~2021-01-29] VITALS: Ht 154.9 cm; Wt 57.5 kg
[~2021-01-29 17:23] MED LIST changes: +ATOR40TA78 PO; -ETOMIDATE 20 MG/10 ML ONE; +LISI-167 PO; +OXYC1TAB12 PO; -OXYC1TAB14 PO; -PROPOFOL 10 MG/ML, 100ML IV ONE; +VANC1VIA36 PO; -VECURONIUM 10 MG ONE
--- NOTE | 2021-01-29 17:27 | NUR ---
Report received from EMS and analytical technician at bedside for 12 lead EKG. Pt assisted into gown, placed on full bedside monitor and field counsel completed. At end of exam, pt states she needs to urinate "badly" and assisted to restroom with clean catch UA instructions given. UA sample obtained and sent to lab, awaiting MD exam and orders. Pt back to bed without incident and placed back on monitor.
--- NOTE | 2021-01-29 17:40 | NUR ---
at bedside for exam. Pt states UTI 1 week ago and not sure if abx were completed because the pharmacy was supposed to send more to the [facility] she is living in.
--- NOTE | 2021-01-29 17:45 | NUR ---
IV attempt x1 to L wrist unsuccessful. Pt states no other attempts will be permitted without ultrasound as she usually needs central lines placed in neck or ultrasound guided lines placed. Jean RN requested to bedside as able. States he will be back to start line after taking from trauma room to ICU. Dr. Chris aware.
[2021-01-29] MEDS ORDERED: SODIUM CHLORIDE 0.9% 1,000ML IVBOLUS ONE (18:00)
[2021-01-29] MEDS ORDERED: ONDANSETRON 2MG/ML, 2ML IVPush ONE (18:00)
--- NOTE | 2021-01-29 18:10 | NUR ---
Lab and Xray at bedside for testing.
[2021-01-29 18:33] LABS: PH, VENOUS 7.256 pH (7.320-7.420)
--- NOTE | 2021-01-29 18:38 | NUR ---
Critical lab result of venous blood gas HCO3 <10 received.
--- NOTE | 2021-01-29 18:40 | NUR ---
Jean RN at bedside to attempt IV start now by ultrasound guidance. New pack of lemon glycerin swabs provided per pt request.
--- NOTE | 2021-01-29 18:41 | NUR ---
Dr. Chris back to MD core area and notified of critical lab result. Aware of IV start attempt happening now and states to give both 1 liter of NS and 1 liter of LR as ordered once IV present.
[2021-01-29 18:49] LABS: ALANINE AMINOTRANSFERASE 171 U/L (12-78); ALBUMIN 3.2 g/dL (3.4-5.0); ANION GAP 21 mmol/L (5-15); CALCIUM 8.5 mg/dL (8.5-10.1); CHLORIDE 83 mmol/L (98-107); CREATININE 1.66 mg/dL (0.55-1.02)
--- NOTE | 2021-01-29 18:50 | NUR ---
Report given to KATERINA Lopez and care transferred for end of shift. RN aware of Jean attempting IV start and need for 1 liter NS as well as 1 liter of LR per Dr. Chris once IV in place. Discussed critical lab values known at this time.
[2021-01-29] MEDS ORDERED: ONDANSETRON 2MG/ML, 2ML ONE (18:52)
[2021-01-29 18:53] LABS: ACETONE, SERUM Large (80mg/dL) (Negative)
[2021-01-29 18:57] LABS: BASOPHILS % (AUTO) 3 % (0-1); EOSINOPHILS % (AUTO) 2 % (1-7); LYMPHOCYTES % (AUTO) 24 % (22-44); MEAN CORPUSCULAR HEMOGLOBIN 29.5 pg (27.0-34.8); MEAN PLATELET VOLUME 9.1 fL (7.4-10.4); MONOCYTES % (AUTO) 5 % (2-9); NEUTROPHILS % (AUTO) 66 % (42-75); PLATELET COUNT 448 x10^3/uL (130-400); RED BLOOD COUNT 3.79 x10^6/uL (3.82-5.3); RED CELL DISTRIBUTION WIDTH 15.4 % (9.6-15.2)
[2021-01-29] MEDS ORDERED: LACTATED RINGERS 1,000 ML IVBOLUS ONE (19:00)
[2021-01-29 19:01] LABS: MEAN CORPUSCULAR HGB CONC 29.4 g/dL (32.4-35.8)
--- NOTE | 2021-01-29 19:07 | NUR ---
FIRST CONTACT WITH PT. NURSE AT BEDSIDE ATTEMPTING ULTRASOUND IV. PT RESTING COMFORTABLY ON BED. BEDSIDE CAMODE PROVIDED AND ICE CHIPS. AAOX4. NADN. VSS. WILL CONTINUE TO MONITOR.
[2021-01-29 19:09] LABS: ALKALINE PHOSPHATASE 166 U/L (45-117); BILIRUBIN,TOTAL 0.8 mg/dL (0.2-1.0); TOTAL PROTEIN 7.1 g/dL (6.4-8.2)
[2021-01-29 19:15] LABS: MICROSCOPIC NOT IND
--- NOTE | 2021-01-29 19:46 | NUR ---
PT SWABBED FOR COVID-19 AND WALKED TO LAB
[2021-01-29] MEDS ORDERED: KETOROLAC 30 MG/1 ML ONE (19:49)
[2021-01-29] MEDS ORDERED: KETOROLAC 30 MG/1 ML IVPush ONE (20:00)
[2021-01-29] MEDS ORDERED: ACETAMINOPHEN 325 MG TABLET PO PRN (20:30)
[2021-01-29] MEDS ORDERED: PHARMACY MAY ADJ FOR RENAL FX MC PRN (20:30)
[2021-01-29] MEDS ORDERED: ONDANSETRON 2MG/ML, 2ML IV PRN (20:30)
[2021-01-29] MEDS ORDERED: D5%-0.45NACL+KCL 20MEQ 1,000 ML IV SCH (20:30)
--- NOTE | 2021-01-29 20:41 | NUR ---
MULTIPLE ATTMEPTS TO START 2ND IV. 1ST IV IS POSITIONAL AND NOT FLOWING GOOD IT SHOULD. NURSE IN WITH ULTRASOUND TO ATTEMPT IV.
[2021-01-29] MEDS ORDERED: FAMOTIDINE 20 MG/2 ML IVPush SCH (21:00)
[2021-01-29] MEDS: REGULAR INSULIN 100 UNITS in SODIUM CHLORIDE 0.9% 99 ML IV PRN (21:28)
[2021-01-29 21:34] LABS: ANION GAP 22 mmol/L (5-15); CALCIUM 8.6 mg/dL (8.5-10.1); CHLORIDE 85 mmol/L (98-107); CREATININE 1.59 mg/dL (0.55-1.02)
--- NOTE | 2021-01-29 21:38 | NUR ---
DR. PINEDO AT BEDSIDE.
[2021-01-29] MEDS ORDERED: morphine SULFATE 10 MG/ML, 1ML IV PRN (22:00)
[2021-01-29] MEDS: SODIUM CHLORIDE 0.9% 1,000 ML IV SCH (22:47)
[2021-01-29] MEDS: HEPARIN 5,000 UNITS/ML, 1ML SQ SCH (22:49)
[2021-01-30 02:39] LABS: ANION GAP 10 mmol/L (5-15); CALCIUM 7.7 mg/dL (8.5-10.1); CHLORIDE 104 mmol/L (98-107); CREATININE 1.41 mg/dL (0.55-1.02)
[2021-01-30] MEDS: SODIUM CHLORIDE 0.9% 1,000 ML IV SCH ×2 (03:18→04:07)
[2021-01-30] MEDS: REGULAR INSULIN 100 UNITS in SODIUM CHLORIDE 0.9% 99 ML IV PRN (04:06)
[2021-01-30] MEDS: HEPARIN 5,000 UNITS/ML, 1ML SQ SCH ×3 (04:06→20:26)
[2021-01-30 08:07] LABS: ANION GAP 8 mmol/L (5-15); CALCIUM 8.4 mg/dL (8.5-10.1); CHLORIDE 106 mmol/L (98-107); CREATININE 1.27 mg/dL (0.55-1.02)
[2021-01-30] MEDS: POTASSIUM CHLORIDE 20 MEQ TAB.ER.PRT PO SCH ×2 (08:19→17:50)
[2021-01-30] MEDS ORDERED: INSULIN GLARGINE 100 UNITS/ML, PEN ONE (08:31)
[2021-01-30] MEDS ORDERED: INSULIN GLARGINE 100 UNITS/ML, PEN SQ-INSULIN ONE (09:00)
[2021-01-30] MEDS: INSULIN LISPRO 100 UNITS/ML, PEN SQ-INSULIN SCH ×3 (12:26→20:35)
[2021-01-30] MEDS ORDERED: SODIUM CHLORIDE 0.9% 1,000 ML IV SCH (20:30)
[2021-01-30] MEDS: INSULIN GLARGINE 100 UNITS/ML, PEN SQ-INSULIN SCH (21:27)
[2021-01-31 01:34] VITALS: BP 118/75
[2021-01-31] MEDS: HEPARIN 5,000 UNITS/ML, 1ML SQ SCH ×3 (04:19→20:30)
[2021-01-31] MEDS: INSULIN LISPRO 100 UNITS/ML, PEN SQ-INSULIN SCH ×4 (07:00→20:50)
[2021-01-31 08:20] LABS: BASOPHILS % (AUTO) 2 % (0-1); EOSINOPHILS % (AUTO) 5 % (1-7); LYMPHOCYTES % (AUTO) 39 % (22-44); MEAN CORPUSCULAR HEMOGLOBIN 29.4 pg (27.0-34.8); MEAN CORPUSCULAR HGB CONC 32.6 g/dL (32.4-35.8); MEAN PLATELET VOLUME 8.1 fL (7.4-10.4); MONOCYTES % (AUTO) 6 % (2-9); NEUTROPHILS % (AUTO) 48 % (42-75); PLATELET COUNT 425 x10^3/uL (130-400); RED CELL DISTRIBUTION WIDTH 14.1 % (9.6-15.2)
[2021-01-31 08:31] LABS: ANION GAP 6 mmol/L (5-15); CALCIUM 9.4 mg/dL (8.5-10.1); CHLORIDE 111 mmol/L (98-107); CREATININE 0.91 mg/dL (0.55-1.02)
[2021-01-31] MEDS: INSULIN GLARGINE 100 UNITS/ML, PEN SQ-INSULIN SCH ×2 (09:00→20:50)
[2021-01-31 09:54] VITALS: BP 131/79
[2021-01-31 12:45] VITALS: BP 145/103
[2021-01-31] MEDS: NICOTINE 21 MG/24 HR PATCH.TD24 TD SCH (13:19)
[2021-01-31 16:00] VITALS: BP 132/74
[2021-01-31 19:13] VITALS: BP 165/98
[2021-02-01 01:11] VITALS: BP 164/93
[2021-02-01] MEDS: HEPARIN 5,000 UNITS/ML, 1ML SQ SCH ×2 (04:30→12:30)
[2021-02-01 07:44] LABS: BASOPHILS % (AUTO) 1 % (0-1); EOSINOPHILS % (AUTO) 5 % (1-7); LYMPHOCYTES % (AUTO) 35 % (22-44); MEAN CORPUSCULAR HEMOGLOBIN 29.8 pg (27.0-34.8); MEAN CORPUSCULAR HGB CONC 33.1 g/dL (32.4-35.8); MEAN PLATELET VOLUME 8.4 fL (7.4-10.4); MONOCYTES % (AUTO) 7 % (2-9); NEUTROPHILS % (AUTO) 53 % (42-75); PLATELET COUNT 402 x10^3/uL (130-400); RED CELL DISTRIBUTION WIDTH 14.6 % (9.6-15.2)
[2021-02-01 07:46] VITALS: BP 144/84
[2021-02-01 07:54] LABS: ALBUMIN 2.8 g/dL (3.4-5.0); ANION GAP 6 mmol/L (5-15); CALCIUM 8.7 mg/dL (8.5-10.1); CHLORIDE 108 mmol/L (98-107); CREATININE 0.73 mg/dL (0.55-1.02)
[2021-02-01] MEDS: INSULIN LISPRO 100 UNITS/ML, PEN SQ-INSULIN SCH ×2 (08:25→11:26)
[2021-02-01] MEDS: NICOTINE 21 MG/24 HR PATCH.TD24 TD SCH (08:30)
[2021-02-01] MEDS ORDERED: ATOR10TA9 PO (11:02)
[2021-02-01] MEDS: INSULIN GLARGINE 100 UNITS/ML, PEN SQ-INSULIN SCH (11:25)
[2021-02-01] MEDS ORDERED: SODIUM CHLORIDE FLUSH 10ML SYR IVF SCH (11:30)
[2021-02-01] MEDS ORDERED: DEXTROSE 50%, 50ML SYRINGE IVPush PRN (11:30)
[2021-02-01] MEDS ORDERED: GLUCAGON 1 MG IM PRN (11:30)
[2021-02-01] MEDS ORDERED: DEXTROSE 4 GM TAB.CHEW PO PRN (11:30)
[2021-02-01] MEDS ORDERED: INSULIN GLARGINE 100 UNITS/ML, PEN SQ-INSULIN SCH ×2 (12:00→21:00)
[2021-02-01 13:45] VITALS: BP 159/95
== END 2021-02-01 13:59 | disposition home or self-care (01) | DRG 637 ==
LOC: ED 19:00 → EDIP 19:34 → ED 21:35 → CCU 22:01 → 3N 01-30 11:11
PROVIDERS: ADMIT Family Medicine; ATTEND Family Medicine
PROC: 0T9B70Z Drainage of Bladder with Drainage Device, Via Natural or Artificial Opening (ICD-10-PCS; principal; 2021-01-29)
DX: E10.10 Type 1 diabetes mellitus with ketoacidosis without coma (principal); N17.0 Acute kidney failure with tubular necrosis; D53.9 Nutritional anemia, unspecified; E78.5 Hyperlipidemia, unspecified; E86.0 Dehydration; E87.5 Hyperkalemia; F12.90 Cannabis use, unspecified, uncomplicated; F15.90 Other stimulant use, unspecified, uncomplicated; F17.200 Nicotine dependence, unspecified, uncomplicated; F43.10 Post-traumatic stress disorder, unspecified; G62.9 Polyneuropathy, unspecified; G89.29 Other chronic pain; I10 Essential (primary) hypertension; Z20.822 Contact with and (suspected) exposure to COVID-19; Z59.0 Homelessness; Z76.5 Malingerer [conscious simulation]; Z86.73 Personal history of transient ischemic attack (TIA), and cerebral infarction without residual deficits; Z87.19 Personal history of other diseases of the digestive system; Z91.19 Patient's noncompliance with other medical treatment and regimen; Z90.49 Acquired absence of other specified parts of digestive tract
CPT/HCPCS: 36415; 71045; 80048; 80053; 80069; 81003; 82010; 82803; 82947; 82962; 83036; 83735; 84100; 85025; 87081; 93005; 96374; 96375; G0378; J1644; J1815; J1885; J2405; U0005; J2270; J3480; J7030; J7120; U0003